=== PATIENT | female | born 1950 | race Caucasian/White ===

== ENCOUNTER 2017-05-16 13:48 | Inpatient (IN) | payer MEDICARE ==
[~2017-05-16] VITALS: Ht 165.1 cm; Wt 96.6 kg
[2017-05-16] VITALS (7 sets, daily range): BP systolic 123–150; BP diastolic 56–83; PULSE 108–136; RESP 17–22; TEMP 97.9–98.2; O2SAT 93–96
[~2017-05-16 13:48] MED LIST: NAPR550 PO; SULF1TAB47 PO; Z.0.NO CURRENT MEDS
[2017-05-16] MEDS ORDERED: IOHEXOL 350 MG/ML 10 ML VIAL (for RAD DIAG) IVCONTRAST ONE (13:49)
--- NOTE | 2017-05-16 14:09 | PD ---
HPI Chief Complaint: abdominal pain Time Seen by Provider: 14:05 Travel History International Travel<30 days: No Contact w/Intl Traveler<30days: No Traveled to known affect area: No History of Present Illness HPI 67-year-old female patient with history of previous cholecystectomy, presents to the ER today because of one week history of abdominal pains, dark stools, started vomiting today. She also complains of increased abdominal girth. She denies any fevers, but does states she has intermittent shortness of breath and dyspnea on exertion. She denies other issues. Modifying Factors: None Associated Signs & Symptoms: Abdominal pain, swelling, dark stools, vomiting Risk Factors: None PFSH Past Medical History Diminished Hearing: No Past Surgical History Abdominal Surgery: Yes (HERNIA REPAIR) Cholecystectomy: Yes Social History Alcohol Use: No Tobacco Use: No Substance Use: No Allergies-Medications (Allergen,Severity, Reaction): Coded Allergies: No Known Allergies (Verified Allergy, Mild, 05/16/17) Reported Meds & Prescriptions Reported Meds & Active Scripts Active Anaprox Ds (Naproxen Sodium) 550 Mg Tab 550 Mg PO BID Bactrim Ds (Trimethoprim/Sulfamethoxazole) Tab 1 Tab PO BID Reported No Current Meds (Miscellaneous Medication) Misc Review of Systems Except as stated in HPI: all other systems reviewed are Neg Physical Exam Narrative GENERAL: Well-developed elderly white female patient currently in moderate distress. Awake and oriented 3. Notable for dark brown vomitus unsure. SKIN: Focused skin assessment warm/dry. HEAD: Atraumatic. Normocephalic. EYES: Pupils equal and round. No scleral icterus. No injection or drainage. ENT: No nasal bleeding or discharge. Mucous membranes pink and moist. NECK: Trachea midline. No JVD. CARDIOVASCULAR: Regular rate and rhythm. No murmur appreciated. RESPIRATORY: No accessory muscle use. Clear to auscultation. Breath sounds equal bilaterally. GASTROINTESTINAL: Abdomen moderately distended, diffusely tender without guarding or rebound. Hepatic and splenic margins not palpable. MUSCULOSKELETAL: No obvious deformities. No clubbing. No cyanosis. No edema. NEUROLOGICAL: Awake and alert. No obvious cranial nerve deficits. Motor grossly within normal limits. Normal speech. PSYCHIATRIC: Appropriate mood and affect; insight and judgment normal. Data Data Last Documented VS Vital Signs Date Time Temp Pulse Resp B/P (MAP) Pulse Ox O2 Delivery O2 Flow Rate FiO2 12/2/17 14:29 97.9 132 22 136/83 (100) 95 Room Air Orders Orders Complete Blood Count With Diff (05/16/17 14:05) Comprehensive Metabolic Panel (05/16/17 14:05) Lipase (05/16/17 14:05) Prothrombin Time / Inr (Pt) (05/16/17 14:05) Act Partial Throm Time (Ptt) (05/16/17 14:05) Urinalysis - C+S If Indicated (05/16/17 14:05) Ct Abd/Pel W Iv Contrast(Rout) (05/16/17 14:05) Iv Access Insert/Monitor (05/16/17 14:05) Ecg Monitoring (05/16/17 14:05) Oximetry (05/16/17 14:05) Ondansetron Inj (Zofran Inj) (05/16/17 14:15) Sodium Chloride 0.9% Flush (Ns Flush) (05/16/17 14:15) Electrocardiogram (05/16/17 14:05) Chest, Single Ap (05/16/17 14:05) Sodium Chlorid 0.9% 500 Ml Inj (Ns 500 M (05/16/17 14:15) Iohexol 350 Inj (Omnipaque 350 Inj) (05/16/17 13:49) Labs Laboratory Tests Test 05/16/17 14:33 05/16/17 17:35 White Blood Count 12.0 TH/MM3 Red Blood Count 5.19 MIL/MM3 Hemoglobin 14.7 GM/DL Hematocrit 44.6 % Mean Corpuscular Volume 85.9 FL Mean Corpuscular Hemoglobin 28.4 PG Mean Corpuscular Hemoglobin Concent 33.0 % Red Cell Distribution Width 13.9 % Platelet Count 449 TH/MM3 Mean Platelet Volume 8.8 FL Neutrophils (%) (Auto) 79.3 % Lymphocytes (%) (Auto) 11.0 % Monocytes (%) (Auto) 9.0 % Eosinophils (%) (Auto) 0.3 % Basophils (%) (Auto) 0.4 % Neutrophils # (Auto) 9.5 TH/MM3 Lymphocytes # (Auto) 1.3 TH/MM3 Monocytes # (Auto) 1.1 TH/MM3 Eosinophils # (Auto) 0.0 TH/MM3 Basophils # (Auto) 0.1 TH/MM3 CBC Comment DIFF FINAL Differential Comment Prothrombin Time 11.0 SEC Prothromb Time International Ratio 1.1 RATIO Activated Partial Thromboplast Time 26.4 SEC Blood Urea Nitrogen 14 MG/DL Creatinine 0.70 MG/DL Random Glucose 213 MG/DL Total Protein 6.9 GM/DL Albumin 2.3 GM/DL Calcium Level 8.8 MG/DL Alkaline Phosphatase 108 U/L Aspartate Amino Transf (AST/SGOT) 24 U/L Alanine Aminotransferase (ALT/SGPT) 9 U/L Total Bilirubin 0.4 MG/DL Sodium Level 139 MEQ/L Potassium Level 3.8 MEQ/L Chloride Level 102 MEQ/L Carbon Dioxide Level 27.3 MEQ/L Anion Gap 10 MEQ/L Estimat Glomerular Filtration Rate 83 ML/MIN Lipase 65 U/L Urine Color YELLOW Urine Turbidity HAZY Urine pH 6.0 Urine Specific [place] 1.021 Urine Protein 30 mg/dL Urine Glucose (UA) NEG mg/dL Urine Ketones 10 mg/dL Urine Occult Blood NEG Urine Nitrite NEG Urine Bilirubin NEG Urine Urobilinogen 2.0 MG/DL Urine Leukocyte Esterase NEG Urine RBC LESS THAN 1 /hpf Urine WBC 3 /hpf Urine Squamous Epithelial Cells 1 /hpf Urine Hyaline Casts 1 /lpf Urine Mucus FEW /lpf Microscopic Urinalysis Comment CULT NOT INDICATED MDM Medical Decision Making Medical Screen Exam Complete: Yes Emergency Medical Condition: Yes Medical Record Reviewed: Yes Interpretation(s) Laboratory Tests Test 05/16/17 14:33 05/16/17 17:35 White Blood Count 12.0 TH/MM3 (4.0-11.0) Neutrophils (%) (Auto) 79.3 % (16.0-70.0) Monocytes (%) (Auto) 9.0 % (0.0-8.0) Neutrophils # (Auto) 9.5 TH/MM3 (1.8-7.7) Monocytes # (Auto) 1.1 TH/MM3 (0-0.9) Random Glucose 213 MG/DL (74-106) Albumin 2.3 GM/DL (3.4-5.0) Alanine Aminotransferase (ALT/SGPT) 9 U/L (10-53) Estimat Glomerular Filtration Rate 83 ML/MIN (>89) Lipase 65 U/L (73-393) Urine Turbidity HAZY (CLEAR) Urine Protein 30 mg/dL (NEG-TRACE) Urine Ketones 10 mg/dL (NEG) Urine Mucus FEW /lpf (OCC) Last 24 hours Impressions Chest X-Ray 05/16/17 1405 Signed Impressions: Service Date/Time: Tuesday, May 16, 2017 14:55 - CONCLUSION: 1. No gross free air. 2. Small loculated right-sided pleural effusion with patchy airspace disease in the right lower lung zone and associative volume loss. Milo Matute MD Abdomen/Pelvis CT 05/16/17 1405 Signed Impressions: Service Date/Time: Tuesday, May 16, 2017 17:09 - CONCLUSION: 1. Examination is abnormal. There are 2 dominant masses in the pelvis. A large multicystic left adnexal mass measuring up to 13.3 x 13.5 cm and an apparent heterogeneous myometrial uterine mass measuring 10.3 x 9.2 cm. There is extensive mesenteric carcinomatosis, ascites, mild retroperitoneal adenopathy, soft tissue studding of the liver surface and bilateral pulmonary nodules at the lung bases. Findings are consistent with extensive metastatic disease in a pattern most consistent with ovarian carcinoma. However, differential considerations include uterine malignancy given the large uterine mass with apparent mass effect on the distal right ureter. 2. Moderate right hydronephrosis and hydroureter secondary to mass effect from right pelvic mass 3. Small left and [id number] right pleural effusions. Milo Matute MD Differential Diagnosis Abdominal pain, increased abdominal girth, vomiting, diarrhea: Gastroenteritis versus obstruction versus acute intra-abdominal processes versus perforation Narrative Course CAT scan is very concerning for malignancy with metastases to multiple areas. At this point, my plan would be to admit the patient for further evaluation and treatment. Case was discussed with Dr. Carrillo for admission. Diagnosis Primary Impression: Abdominal pain Additional Impression: Ovarian mass Admitting Information Admitting Physician Requests: Admit Malik Patten MD May 16, 2017 14:09
[2017-05-16] MEDS ORDERED: SODIUM CHLORID 0.9% 500 ML INJ 500 ML IV ONE ×2 (14:15→21:00)
[2017-05-16] MEDS ORDERED: ONDANSETRON HCL 4 MG/2 ML VIAL IVP ONE (14:15)
[2017-05-16 15:03] LABS: AUTOMATED NEUTROPHIL # 9.5 TH/MM3 (1.8-7.7); BASOPHIL # 0.1 TH/MM3 (0-0.2); BASOPHIL % 0.4 % (0.0-2.0); EOSINOPHIL % 0.3 % (0.0-4.0); HEMATOCRIT 44.6 % (35.0-46.0); HEMO FLAGS DIFF FINAL; LYMPHOCYTE # 1.3 TH/MM3 (1.0-4.8); MEAN CELL VOLUME 85.9 FL (80.0-100.0); MEAN CORPUSCULAR HEMOGLOBIN 28.4 PG (27.0-34.0); NEUT % 79.3 % (16.0-70.0); PLATELET COUNT 449 TH/MM3 (150-450); RED BLOOD COUNT 5.19 MIL/MM3 (4.00-5.30); RED CELL DISTRIBUTION WIDTH 13.9 % (11.6-17.2)
[2017-05-16 15:12] LABS: APTT (PATIENT) 26.4 SEC (24.3-30.1); INTERNATIONAL NORMALIZED RATIO 1.1 RATIO
[2017-05-16 15:20] LABS: ALT (GPT) 9 U/L (10-53)
--- NOTE | 2017-05-16 15:21 | RADRPT ---
EXAM DATE/TIME: 05/16/2017 14:55 [facility] COMPARISON: No previous studies available for comparison. INDICATIONS : Lower abdominal pain and shortness of breath. Concern for free air. MEDICAL HISTORY : None. SURGICAL HISTORY : None. ENCOUNTER: Initial ACUITY: 1 week PAIN SCORE: 4/10 LOCATION: Bilateral chest FINDINGS: Small loculated right-sided pleural effusion with patchy airspace disease in the right lower lung zon e. Left lung is clear. Mediastinal shift to the right. Cardio mediastinal contours are otherwise unre markable. Bony thorax is intact. No gross free air. CONCLUSION: 1. No gross free air. 2. Small loculated right-sided pleural effusion with patchy airspace disease in the right lower lung zone and associative volume loss. Milo Matute MD on May 16, 2017 at 15:17 Board Certified Radiologist. This report was verified electronically.
[2017-05-16 15:22] LABS: ALKALINE PHOSPHATASE 108 U/L (45-117); TOTAL BILIRUBIN ADULT 0.4 MG/DL (0.2-1.0)
[2017-05-16 15:31] LABS: ANION GAP 10 MEQ/L (5-15); AST (GOT) 24 U/L (15-37); BICARBONATE 27.3 MEQ/L (21.0-32.0); BLOOD UREA NITROGEN 14 MG/DL (7-18); CHLORIDE 102 MEQ/L (98-107); GLOMERULAR FILTRATION RATE 83 ML/MIN (>89); POTASSIUM 3.8 MEQ/L (3.5-5.1); SODIUM (NA) 139 MEQ/L (136-145)
--- NOTE | 2017-05-16 17:36 | RADRPT ---
EXAM DATE/TIME: 05/16/2017 17:09 [facility] COMPARISON: No previous studies available for comparison. INDICATIONS : Abdomen pain. IV CONTRAST: 97 cc Omnipaque 350 (iohexol) IV ORAL CONTRAST: No oral contrast ingested. RADIATION DOSE: 27.01 CTDIvol (mGy) MEDICAL HISTORY : None SURGICAL HISTORY : Cholecystectomy. Hernia ENCOUNTER: Initial ACUITY: 1 day PAIN SCALE: 6/10 LOCATION: Bilateral abdomen in the future if there is a medical necessity for iodinated contrast. TECHNIQUE: Volumetric scanning of the abdomen and pelvis was performed. Using automated exposure control and ad justment of the mA and/or kV according to patient size, radiation dose was kept as low as reasonably achievable to obtain optimal diagnostic quality images. DICOM format image data is available electro nically for review and comparison. FINDINGS: LOWER LUNGS: Small left and [id number] right pleural effusions. Nodules in the lung bases bilaterally with the largest on the left measuring 12 mm and the largest on the right measuring 6 mm. LIVER: Liver demonstrates homogeneous density without evidence for intraductal dilatation. There is diffuse soft tissue studding of the liver surface. Gallbladder is surgically absent. SPLEEN: Normal size without lesion. PANCREAS: Within normal limits. KIDNEYS: Kidneys are symmetrical in size. There is moderate right-sided hydronephrosis and hydroureter extendi ng to the mid to distal ureter in the region of the pelvic mass. There is a 6 mm calcified calyceal c alculus in the anterior mid right kidney. There is a 3 mm calcified calyceal calculus in the left mid kidney. ADRENAL GLANDS: Within normal limits. VASCULAR: There is no aortic aneurysm. BOWEL/MESENTERY: Moderate to large amount of ascites with extensive peritoneal carcinomatosis. Largest peritoneal impl ant measures up to 4 cm. Bowel appears grossly unremarkable. ABDOMINAL WALL: Within normal limits. RETROPERITONEUM: Mild retroperitoneal adenopathy with nodes measuring up to 1.6 cm. BLADDER: No wall thickening or mass. REPRODUCTIVE: Abnormal. There is a large cystic left adnexal mass measuring 13.3 x 13.5 cm. Uterus is also abnormal . There is a heterogeneous apparent myometrial mass measuring up to 10.3 x 9.2 cm. This mass demonstr ates coarse calcifications medially. This does exert mass effect on the distal right ureter. INGUINAL: There is no lymphadenopathy or hernia. MUSCULOSKELETAL: L2 vertebral body hemangioma. No abnormal lytic or blastic bony lesions. CONCLUSION: 1. Examination is abnormal. There are 2 dominant masses in the pelvis. A large multicystic left adnex al mass measuring up to 13.3 x 13.5 cm and an apparent heterogeneous myometrial uterine mass measurin g 10.3 x 9.2 cm. There is extensive mesenteric carcinomatosis, ascites, mild retroperitoneal adenopat hy, soft tissue studding of the liver surface and bilateral pulmonary nodules at the lung bases. Find ings are consistent with extensive metastatic disease in a pattern most consistent with ovarian carci noma. However, differential considerations include uterine malignancy given the large uterine mass wi th apparent mass effect on the distal right ureter. 2. Moderate right hydronephrosis and hydroureter secondary to mass effect from right pelvic mass 3. Small left and [id number] right pleural effusions. Milo Matute MD on May 16, 2017 at 17:22 Board Certified Radiologist. This report was verified electronically.
[2017-05-16 17:51] LABS: BLOOD, URINE NEG (NEG); COMMENT (UR) CULT NOT INDICATED; CULTURE IF INDICATED CULT NOT INDICATED; GLUCOSE,URINE NEG (NEG); HYALINE CAST, URINE 1 /lpf (RARE); KETONE, URINE 10 mg/dL (NEG); MUCUS URINE FEW /lpf (OCC); NITRITE,URINE NEG (NEG); SQUAMOUS EPITHELIAL CELL URINE 1 /hpf (0-5); URINE COLOR YELLOW (YELLW/STRAW)
[2017-05-16] MEDS ORDERED: SODIUM CHLOR 0.45% 1000 ML INJ 1,000 ML IV SCH (18:34)
[2017-05-16] MEDS ORDERED: BISACODYL 10 MG SUPP RECTAL PRN (18:45)
[2017-05-16] MEDS ORDERED: MAGNESIUM HYDROXIDE SUSP 30 ML CUP PO PRN (18:45)
[2017-05-16] MEDS ORDERED: LACTULOSE SYRUP 20 GM/30 ML CUP PO PRN (18:45)
[2017-05-16] MEDS ORDERED: SENNOSIDES 8.6 MG TAB PO PRN (18:45)
[2017-05-16] MEDS ORDERED: ACETAMINOPHEN 325 MG TAB PO PRN (18:45)
[2017-05-16] MEDS ORDERED: NALOXONE HCL 0.4 MG/ML AMP IV PUSH PRN (18:45)
[2017-05-16] MEDS ORDERED: ACETAMINOPHEN/HYDROcodone 325 MG/5 MG TAB PO PRN (18:45)
--- NOTE | 2017-05-16 18:59 | HHI.HP ---
[facility] No Primary Care Physician Admission Diagnosis ovarian mass/severe abdominal pain/right sided hydronephrosis Diagnoses: Chief Complaint: Abdominal pain, nausea, vomiting Travel History International Travel<30 Days: No Contact w/Intl Traveler <30 Da: No Traveled to Known Affected Are: No Sepsis Criteria SIRS Criteria (2 or more): Heart rate over 90, RR > 20 or PaCO2 < 32 Criteria Outcome: Meets SIRS criteria History of Present Illness Patient is a 67-year-old female with primary medical history of borderline diabetes, previous cholecystectomy, previous hernia repair who came in to the hospital secondary to abdominal pain, nausea, vomiting 1 week. Patient states she is very weak unable to get up. She was feeling nauseous for about a week and noticed that her abdomen is growing bigger. States that she did not notice vomiting blood but the EMS reported to her that they saw some blood tinged emesis. Patient states she's been having on and off diarrhea. Reports intermittent shortness of breath and dyspnea with exertion and even with conversation. Reports pain on her buttocks secondary to positioning otherwise, continues to have nausea. Denies chest pain, dizziness, headaches. Denies fevers, chills. Denies dysuria. Review of Systems Constitutional: COMPLAINS OF: Fatigue, Weight gain Ears, nose, mouth, throat: DENIES: Tinnitus, Hearing loss, Throat pain Cardiovascular: COMPLAINS OF: Dyspnea on Exertion, Orthopnea, DENIES: Chest pain, Lower Extremity Edema Gastrointestinal: COMPLAINS OF: Abdominal pain, Nausea, Vomiting Genitourinary: DENIES: Abnormal vaginal bleeding, Dysuria Neurologic: DENIES: Headache Except as stated in HPI: all other systems reviewed are Neg Past Family Social History Past Medical History Borderline diabetes Past Surgical History Cholecystectomy Hernia repair Reported Medications Reported Meds & Active Scripts Active Anaprox Ds (Naproxen Sodium) 550 Mg Tab 550 Mg PO BID Bactrim Ds (Trimethoprim/Sulfamethoxazole) Tab 1 Tab PO BID Reported No Current Meds (Miscellaneous Medication) Misc Allergies: Coded Allergies: No Known Allergies (Verified Allergy, Mild, 05/16/17) Active Ordered Medications Current Medications Medications (Trade) Dose Ordered Sig/Benita Route Start Time Stop Time Status Last Admin (NS Flush) 2 ml UNSCH PRN IV FLUSH 05/16/17 14:15 Family History Twin sister has cervical cancer, at the age of 41 Family history of diabetes Mother of heart attack Social History Denies alcohol use Denies tobacco use Denies illicit drug use Physical Exam Vital Signs Vital Signs Date Time Temp Pulse Resp B/P (MAP) Pulse Ox O2 Delivery O2 Flow Rate FiO2 05/16/17 14:29 97.9 132 22 136/83 (100) 95 Room Air 05/16/17 14:03 136 20 96 Physical Exam GENERAL: This is pale, well-developed patient, tachypnea noted with conversation. SKIN: Cool and dry. HEAD: Normocephalic. No temporal or scalp tenderness. EYES: Pupils equal round and reactive. Extraocular motions intact. No scleral icterus. No injection or drainage. Edentulous. ENT: Nose without bleeding. Throat without erythema. Uvula midline. Airway patent. NECK: Trachea midline. CARDIOVASCULAR: Tachycardia without murmurs, gallops, or rubs. RESPIRATORY: Diminished bases. No wheezes, rales, or rhonchi. Tachypnea noted GASTROINTESTINAL: Abdomen soft, non-tender. BS active. Temperature Sumit MUSCULOSKELETAL: Extremities without clubbing, cyanosis, or edema. NEUROLOGICAL: Awake and alert. Oriented to person, place, time. Motor and sensory grossly within normal limits. Bilateral upper and lower extremity weakness. Normal speech. Laboratory Laboratory Tests Test 05/16/17 14:33 05/16/17 17:35 White Blood Count 12.0 Red Blood Count 5.19 Hemoglobin 14.7 Hematocrit 44.6 Mean Corpuscular Volume 85.9 Mean Corpuscular Hemoglobin 28.4 Mean Corpuscular Hemoglobin Concent 33.0 Red Cell Distribution Width 13.9 Platelet Count 449 Mean Platelet Volume 8.8 Neutrophils (%) (Auto) 79.3 Lymphocytes (%) (Auto) 11.0 Monocytes (%) (Auto) 9.0 Eosinophils (%) (Auto) 0.3 Basophils (%) (Auto) 0.4 Neutrophils # (Auto) 9.5 Lymphocytes # (Auto) 1.3 Monocytes # (Auto) 1.1 Eosinophils # (Auto) 0.0 Basophils # (Auto) 0.1 CBC Comment DIFF FINAL Differential Comment Prothrombin Time 11.0 Prothromb Time International Ratio 1.1 Activated Partial Thromboplast Time 26.4 Blood Urea Nitrogen 14 Creatinine 0.70 Random Glucose 213 Total Protein 6.9 Albumin 2.3 Calcium Level 8.8 Alkaline Phosphatase 108 Aspartate Amino Transf (AST/SGOT) 24 Alanine Aminotransferase (ALT/SGPT) 9 Total Bilirubin 0.4 Sodium Level 139 Potassium Level 3.8 Chloride Level 102 Carbon Dioxide Level 27.3 Anion Gap 10 Estimat Glomerular Filtration Rate 83 Lipase 65 Urine Color YELLOW Urine Turbidity HAZY Urine pH 6.0 Urine Specific [place] 1.021 Urine Protein 30 Urine Glucose (UA) NEG Urine Ketones 10 Urine Occult Blood NEG Urine Nitrite NEG Urine Bilirubin NEG Urine Urobilinogen 2.0 Urine Leukocyte Esterase NEG Urine RBC LESS THAN 1 Urine WBC 3 Urine Squamous Epithelial Cells 1 Urine Hyaline Casts 1 Urine Mucus FEW Microscopic Urinalysis Comment CULT NOT INDICATED Result Diagram: 05/16/17 1433 05/16/17 1433 Imaging Last Impressions Chest X-Ray 05/16/17 1405 Signed Impressions: Service Date/Time: Tuesday, May 16, 2017 14:55 - CONCLUSION: 1. No gross free air. 2. Small loculated right-sided pleural effusion with patchy airspace disease in the right lower lung zone and associative volume loss. Milo Matute MD Abdomen/Pelvis CT 05/16/17 1405 Signed Impressions: Service Date/Time: Tuesday, May 16, 2017 17:09 - CONCLUSION: 1. Examination is abnormal. There are 2 dominant masses in the pelvis. A large multicystic left adnexal mass measuring up to 13.3 x 13.5 cm and an apparent heterogeneous myometrial uterine mass measuring 10.3 x 9.2 cm. There is extensive mesenteric carcinomatosis, ascites, mild retroperitoneal adenopathy, soft tissue studding of the liver surface and bilateral pulmonary nodules at the lung bases. Findings are consistent with extensive metastatic disease in a pattern most consistent with ovarian carcinoma. However, differential considerations include uterine malignancy given the large uterine mass with apparent mass effect on the distal right ureter. 2. Moderate right hydronephrosis and hydroureter secondary to mass effect from right pelvic mass 3. Small left and [id number]-zrxckhbu right pleural effusions. Milo Matute MD Caprini VTE Risk Assessment Caprini VTE Risk Assessment: Mod/High Risk (score >= 2) Caprini Risk Assessment Model Point Value = 1 Point Value = 2 Point Value = 3 Point Value = 5 Age 41-60 Minor surgery BMI > 25 kg/m2 Swollen legs Varicose veins or History of unexplained or recurrent spontaneous Oral contraceptives or hormone replacement Sepsis (< 1 month) Serious lung disease, including pneumonia (< 1 month) Abnormal pulmonary function Acute myocardial infarction Congestive heart failure (< 1 month) History of inflammatory bowel disease Medical patient at bed rest Age 61-74 Arthroscopic surgery Major open surgery (> 45 min) Laparoscopic surgery (> 45 min) Malignancy Confined to bed (> 72 hours) Immobilizing plaster cast Central venous access Age >= 75 History of VTE Family history of VTE Factor V Leiden Prothrombin [id number] Lupus anticoagulant Anticardiolipin antibodies Elevated serum homocysteine Heparin-induced thrombocytopenia Other congenital or acquired thrombophilia Stroke (< 1 month) Elective arthroplasty Hip, pelvis, or leg fracture Acute spinal cord injury (< 1 month) Prophylaxis Regimen Total Risk Factor Score Risk Level Prophylaxis Regimen 0-1 Low Early ambulation 2 Moderate Order ONE of the following: *Sequential Compression Device (SCD) *Heparin 5000 units SQ BID 3-4 Higher Order ONE of the following medications: *Heparin 5000 units SQ TID *Enoxaparin/Lovenox 40 mg SQ daily (WT < 150 kg, CrCl > 30 mL/min) *Enoxaparin/Lovenox 30 mg SQ daily (WT < 150 kg, CrCl > 10-29 mL/min) *Enoxaparin/Lovenox 30 mg SQ BID (WT < 150 kg, CrCl > 30 mL/min) AND/OR *Sequential Compression Device (SCD) 5 or more Highest Order ONE of the following medications: *Heparin 5000 units SQ TID (Preferred with Epidurals) *Enoxaparin/Lovenox 40 mg SQ daily (WT < 150 kg, CrCl > 30 mL/min) *Enoxaparin/Lovenox 30 mg SQ daily (WT < 150 kg, CrCl > 10-29 mL/min) *Enoxaparin/Lovenox 30 mg SQ BID (WT < 150 kg, CrCl > 30 mL/min) AND *Sequential Compression Device (SCD) Assessment and Plan Problem List: (1) Abdominal pain ICD Code: R10.9 - Unspecified abdominal pain Status: Acute (2) Ovarian mass ICD Code: N83.9 - Noninflammatory disorder of ovary, fallopian tube and broad ligament, unspecified Status: Acute Assessment and Plan Patient is a 67-year-old female with primary medical history of borderline diabetes, previous cholecystectomy, previous hernia repair who came in to the hospital secondary to abdominal pain, nausea, vomiting 1 week. Ovarian mass, suspected carcinoma Uterine mass, suspected carcinoma Abdominal pain, nausea, vomiting ?SIRS, ?Sepsis possibly secondary to pelvic inflammation/ abnormality - Tachycardia, WBC 12 - CT of the abdomen and pelvis 1. Examination is abnormal. There are 2 dominant masses in the pelvis. A large multicystic left adnexal mass measuring up to 13.3 x 13.5 cm and an apparent heterogeneous myometrial uterine mass measuring 10.3 x 9.2 cm. There is extensive mesenteric carcinomatosis, ascites, mild retroperitoneal adenopathy, soft tissue studding of the liver surface and bilateral pulmonary nodules at the lung bases. Findings are consistent with extensive metastatic disease in a pattern most consistent with ovarian carcinoma. However, differential considerations include uterine malignancy given the large uterine mass with apparent mass effect on the distal right ureter. 2. Moderate right hydronephrosis and hydroureter secondary to mass effect from right pelvic mass 3. Small left and nayzq-ss-[id number] right pleural effusions. - Patient states that her sister of cervical cancer at the age of 41 and she is happy to reach 67. - CMM TECHNICIAN oncology consulted for further evaluation and recommendation - Pain management IV morphine when necessary - Zofran For nausea - Check lactic acid, check blood cultures - IV fluids for hydration, monitor for overload as patient has pleural effusions. - Follow up labs in a.m. - Will hold off ABX for now as this is possibly secondary to all pelvic and uterine abnormality - Place on telemetry. Try BB if cont to by tachycardic with fluid resuscitation Borderline diabetes, hyperglycemia - Insulin sliding scale - Monitor Accu-Cheks - Check hemoglobin A1c DVT prop heparin GI prop pantoprazole Code Status DO NOT RESUSCITATE Discussed Condition With Patient, Nursing, Dr. Carrillo Physician Certification 2 Midnight Certification Type: Admission for Inpatient Services Order for Inpatient Services The services are ordered in accordance with Medicare regulations or non- Medicare payer requirements, as applicable. In the case of services not specified as inpatient-only, they are appropriately provided as inpatient services in accordance with the 2-midnight benchmark. Estimated LOS (days): 2 2 days is the estimated time the patient will need to remain in the hospital, assuming treatment plan goals are met and no additional complications. Post-Hospital Plan: Not yet determined James Hollins May 16, 2017 18:59 Carolina Carrillo MD May 17, 2017 07:17
[2017-05-16] MEDS ORDERED: DEXTROSE 50% IN WATER 50 ML VIAL(D50) IV PUSH PRN (19:00)
[2017-05-16] MEDS ORDERED: GLUCAGON 1 MG/ML VIAL OTHER PRN (19:00)
[2017-05-16] MEDS ORDERED: METOPROLOL TARTRATE 5 MG/5 ML VIAL IV PUSH ONE (20:30)
[2017-05-16] MEDS: SODIUM CHLOR 0.9% 1000 ML INJ 1,000 ML IV SCH ×2 (21:00→23:52)
[2017-05-16] MEDS: DOCUSATE SODIUM 50 MG/SENNA 8.6 MG TAB PO SCH (21:00)
[2017-05-16] MEDS: HEPARIN SODIUM - SQ 10,000 UNITS/ML VIAL SQ SCH (21:00)
[2017-05-16] MEDS: INSULIN ASPART SUPPLEMENTAL SCALE SQ SCH (23:45)
[2017-05-17 00:07] VITALS: PULSE 125
[2017-05-17 03:56] VITALS: BP 139/71; PULSE 119; RESP 18; TEMP 98; O2SAT 96
[2017-05-17] MEDS: RESP: ALBUTEROL 2.5 MG/IPRATROPIUM 0.5 MG NEB (PRN) NEB (07:41)
[2017-05-17] MEDS ORDERED: SODIUM CHLORID 0.9% 500 ML INJ 500 ML IV ONE (08:00)
[2017-05-17] MEDS: INSULIN ASPART SUPPLEMENTAL SCALE SQ SCH ×4 (08:13→21:00)
[2017-05-17] MEDS ORDERED: IOHEXOL 350 MG/ML 10 ML VIAL (for RAD DIAG) IVCONTRAST ONE (08:54)
[2017-05-17] MEDS: HEPARIN SODIUM - SQ 10,000 UNITS/ML VIAL SQ SCH (09:13)
[2017-05-17] MEDS: PANTOPRAZOLE SOD 20 MG DELAYED RELEASE TAB PO SCH (09:13)
[2017-05-17] MEDS: SODIUM CHLORIDE 0.9% FLUSH 10 ML FLUSH IV FLUSH PRN (09:14)
--- NOTE | 2017-05-17 09:15 | RADRPT ---
EXAM DATE/TIME: 05/17/2017 08:45 CORRECTION Corrected on: May 18, 2017; fixed report corrected IV to 70cc [place] COMPARISON: CHEST SINGLE AP, May 16, 2017, 14:55. INDICATIONS : Shortness of breath. IV CONTRAST: 70.00 cc Omnipaque 350 (iohexol) IV RADIATION DOSE: 8.78 CTDIvol (mGy) MEDICAL HISTORY : Hypertension. SURGICAL HISTORY : Cholecystectomy. ENCOUNTER: Initial ACUITY: 1 week PAIN SCALE: 0/10 LOCATION: chest TECHNIQUE: Volumetric scanning of the chest was performed using a pulmonary embolism protocol MIP images were re constructed. Using automated exposure control and adjustment of the mA and/or kV according to patien t size, radiation dose was kept as low as reasonably achievable to obtain optimal diagnostic quality images. DICOM format image data is available electronically for review and comparison. Follow-up recommendations for detected pulmonary nodules are based at a minimum on nodule size and pa tient risk factors according to Fleischner Society Guidelines. FINDINGS: PULMONARY ARTERIES: No filling defects are seen in the pulmonary arteries through the segmental level. LUNGS: Numerous bilateral pulmonary nodules consistent with metastatic disease. Prominent opacity within the right upper lobe with associated volume loss. Nodular density in the anterior left upper lobe measur es 12 mm and one within the posterior right upper lobe measures 13 mm. Centimeter nodule left lower l obe and 9 mm nodule in the right middle lobe. Bibasilar consolidation likely atelectasis. Numerous ot her smaller nodules are seen. PLEURAE: Moderate bilateral pleural effusions greater on the right. MEDIASTINUM: Multiple lymph nodes are seen predominantly within the fat anterior to the pericardium in the supradi aphragmatic region measuring 1.4 cm and the right and 2 cm in the left. Dilated esophagus. Minimal co ronary artery calcifications. MUSCULOSKELETAL: Within normal limits for patient age. MISCELLANEOUS: The visualized upper abdominal organs demonstrate ascites with prominent adenopathy adjacent to the d istal esophagus and supradiaphragmatic region. CONCLUSION: 1. No evidence for pulmonary embolism. 2. Moderate bilateral pleural effusions with bibasilar atelectasis greater on the right. 3. Multifocal metastatic pulmonary nodules and metastatic adenopathy. Noe Agustin MD on May 17, 2017 at 9:04 Board Certified Radiologist. Board Certified Radiologist. This report was verified electronically.
[2017-05-17 09:24] LABS: HEMOGLOBIN A1a 1.3 %; HEMOGLOBIN A1b 2.4 %; HEMOGLOBIN Ao 78.8 %; HEMOGLOBIN LA1C 2.3 %; HEMOGLOBIN P3 4.3 %
[2017-05-17] MEDS: DOCUSATE SODIUM 50 MG/SENNA 8.6 MG TAB PO SCH (09:24)
[2017-05-17] MEDS: ONDANSETRON HCL 4 MG/2 ML VIAL IVP PRN ×2 (09:25→21:10)
--- NOTE | 2017-05-17 11:19 | HHI.PR ---
Subjective Remarks Follow-up ovarian/uterine masses/questionable metastasis 05/17/17-patient seen and examined, complains of fullness, bloating, shortness of breath for which CTA ordered this morning. Patient requested hospice consultation Objective Vitals Vital Signs Date Time Temp Pulse Resp B/P (MAP) Pulse Ox O2 Delivery O2 Flow Rate FiO2 05/17/17 03:56 98.0 119 18 139/71 (93) 96 05/17/17 00:07 125 05/16/17 23:10 98.2 126 17 150/66 (94) 93 05/16/17 21:35 121 05/16/17 21:23 98.1 119 17 126/82 (97) 93 05/16/17 20:44 05/16/17 20:36 108 20 123/56 (78) 96 Room Air 05/16/17 20:19 98.2 133 20 137/70 (92) 94 Room Air 05/16/17 14:29 97.9 132 22 136/83 (100) 95 Room Air 05/16/17 14:03 136 20 96 I/O 05/16/17 05/16/17 05/16/17 05/17/17 05/17/17 05/17/17 07:00 15:00 23:00 07:00 15:00 23:00 Intake Total 500 ml Balance 500 ml Intake IV Total 500 ml Result Diagram: 05/16/17 1433 05/16/17 [address] Angiography 05/17/17 0000 Signed Impressions: Service Date/Time: Wednesday, May 17, 2017 08:45 - CONCLUSION: 1. No evidence for pulmonary embolism. 2. Moderate bilateral pleural effusions with bibasilar atelectasis greater on the right. 3. Multifocal metastatic pulmonary nodules and metastatic adenopathy. Noe Agustin MD Chest X-Ray 05/16/17 1907 Signed Impressions: Service Date/Time: Tuesday, May 16, 2017 14:55 - CONCLUSION: 1. No gross free air. 2. Small loculated right-sided pleural effusion with patchy airspace disease in the right lower lung zone and associative volume loss. Milo Matute MD Abdomen/Pelvis CT 05/16/17 1405 Signed Impressions: Service Date/Time: Tuesday, May 16, 2017 17:09 - CONCLUSION: 1. Examination is abnormal. There are 2 dominant masses in the pelvis. A large multicystic left adnexal mass measuring up to 13.3 x 13.5 cm and an apparent heterogeneous myometrial uterine mass measuring 10.3 x 9.2 cm. There is extensive mesenteric carcinomatosis, ascites, mild retroperitoneal adenopathy, soft tissue studding of the liver surface and bilateral pulmonary nodules at the lung bases. Findings are consistent with extensive metastatic disease in a pattern most consistent with ovarian carcinoma. However, differential considerations include uterine malignancy given the large uterine mass with apparent mass effect on the distal right ureter. 2. Moderate right hydronephrosis and hydroureter secondary to mass effect from right pelvic mass 3. Small left and ftuzc-xp-afqydyby right pleural effusions. Milo Matute MD Objective Remarks GENERAL: NAD SKIN: Warm and dry. HEAD: Normocephalic. EYES: No scleral icterus. No injection or drainage. NECK: Supple, trachea midline. No JVD or lymphadenopathy. CARDIOVASCULAR: Regular rate and rhythm without murmurs, gallops, or rubs. RESPIRATORY: Breath sounds decrease bilaterally. No accessory muscle use. GASTROINTESTINAL: Abdomen soft, mildly tender, nondistended. MUSCULOSKELETAL: No cyanosis, or edema. BACK: Nontender without obvious deformity. No CVA tenderness. A/P Problem List: (1) Abdominal pain ICD Code: R10.9 - Unspecified abdominal pain Status: Acute (2) Ovarian mass ICD Code: N83.9 - Noninflammatory disorder of ovary, fallopian tube and broad ligament, unspecified Status: Acute (3) Metastasis ICD Code: C79.9 - Secondary malignant neoplasm of unspecified site Assessment and Plan 67-year-old female with Ovarian mass, suspected carcinoma Uterine mass, suspected carcinoma ?SIRS, ?Sepsis possibly secondary to pelvic inflammation/ abnormality - Tachycardia, WBC 12 - CT of the abdomen and pelvis with Findings consistent with extensive metastatic disease in a pattern most consistent with ovarian carcinoma. - CTA 05/17/17 noted and reviewed by me with finding of multifocal metastasis pulmonary nodules and pulmonary adenopathy - Patient states that her sister of cervical cancer at the age of 41 and she is happy to reach 67. 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
[2017-05-17 11:45] VITALS: BP 147/74; PULSE 123; RESP 20; TEMP 98.9; O2SAT 95
[2017-05-17] MEDS: SODIUM CHLOR 0.9% 1000 ML INJ 1,000 ML IV SCH ×2 (12:38→21:35)
[2017-05-17] MEDS: ACETAMINOPHEN/HYDROcodone 325 MG/7.5 MG TAB PO PRN ×2 (14:55→21:10)
[2017-05-17 17:05] LABS: AUTOMATED NEUTROPHIL # 7.6 TH/MM3 (1.8-7.7); BASOPHIL % 0.2 % (0.0-2.0); EOSINOPHIL % 0.1 % (0.0-4.0); HEMATOCRIT 41.1 % (35.0-46.0); HEMO FLAGS DIFF FINAL; LYMPH % 12.5 % (9.0-44.0); LYMPHOCYTE # 1.2 TH/MM3 (1.0-4.8); MEAN CELL VOLUME 85.3 FL (80.0-100.0); MEAN CORPUSCULAR HEMOGLOBIN 26.9 PG (27.0-34.0); MEAN CORPUSCULAR HGB CONC 31.5 % (32.0-36.0); MONO % 11.1 % (0.0-8.0); NEUT % 76.1 % (16.0-70.0); PLATELET COUNT 418 TH/MM3 (150-450); RED BLOOD COUNT 4.82 MIL/MM3 (4.00-5.30)
[2017-05-17 17:24] LABS: ANION GAP 12 MEQ/L (5-15); AST (GOT) 16 U/L (15-37); BICARBONATE 23.5 MEQ/L (21.0-32.0); BLOOD UREA NITROGEN 23 MG/DL (7-18); CHLORIDE 105 MEQ/L (98-107); GLOMERULAR FILTRATION RATE 65 ML/MIN (>89); LDH SERUM 154 U/L (84-246); POTASSIUM 3.6 MEQ/L (3.5-5.1); SODIUM (NA) 140 MEQ/L (136-145)
[2017-05-17 17:27] LABS: BETA HCG TUMOR MARKER 10 MIU/ML (0-5)
[2017-05-17 17:35] LABS: ALKALINE PHOSPHATASE 90 U/L (45-117); ALT (GPT) LESS THAN 6 U/L (10-53); TOTAL BILIRUBIN ADULT 0.3 MG/DL (0.2-1.0)
[2017-05-17 18:46] VITALS: BP 152/78; PULSE 120; RESP 18; TEMP 97.8; O2SAT 96
[2017-05-17 20:00] VITALS: BP 152/83; PULSE 119; PULSE 127; RESP 18; TEMP 98.5; O2SAT 92
--- NOTE | 2017-05-17 22:44 | EKG ---
Date Performed: 05/16/2017 Time Performed: 14:48:43 PTAGE: 67 years EKG: SINUS TACHYCARDIA RIGHT BUNDLE BRANCH BLOCK LEFT ANTERIOR FASCICULAR BLOCK ABNORMAL ECG NO PREVIOUS TRACING DOCTOR: Fabio Almonte Interpretating Date/Time 05/17/2017 22:43:37
[2017-05-18] VITALS (10 sets, daily range): BP systolic 110–162; BP diastolic 69–95; PULSE 114–123; RESP 16–20; TEMP 97.1–99.1; O2SAT 90–95
[2017-05-18] MEDS: ONDANSETRON HCL 4 MG/2 ML VIAL IVP PRN ×3 (03:56→20:29)
[2017-05-18] MEDS: ACETAMINOPHEN/HYDROcodone 325 MG/7.5 MG TAB PO PRN ×2 (04:00→20:14)
[2017-05-18] MEDS: SODIUM CHLOR 0.9% 1000 ML INJ 1,000 ML IV SCH ×3 (08:15→18:00)
[2017-05-18] MEDS: INSULIN ASPART SUPPLEMENTAL SCALE SQ SCH ×4 (08:15→20:19)
[2017-05-18] MEDS: PANTOPRAZOLE SOD 20 MG DELAYED RELEASE TAB PO SCH (08:15)
--- NOTE | 2017-05-18 08:40 | PD.CONS ---
History of Present Illness Service purchaser/onc Consult Requested By Dr. Rivers Reason for Consult pelvic masses and carcinomatosis Primary Care Physician No Primary Care Physician Diagnoses: (1) Ovarian mass (2) Abdominal pain (3) Metastasis History of Present Illness This is a 67 year old female who had a 2 week history of abdominal distention, bloating and pain. She reports that over the past few days she has not been able to eat much, she denies any nausea or vomiting but has a lot of reflux She presented to ER for further evaluation. Imaging obtained reports left adnexal mass with enlarged uterus with mass, ascites and peritoneal carcinomatosis. It also stated that she has adenopathy and bilateral lung nodules suspicious for metastatic disease. Patient reports it have been many years since last purchaser exam and about 5 years since last MMG. Mrs. Edwards is seen in consultation for the above findings. I explained that reason for purchaser/onc consult and reviewed the the CT scan results. I explained that we are unsure if this cancer is arising from ovary and spread to abdomen/ uterus and possibly lung or if the problem started in the uterus and spread. I explained that we can have IR do biopsy to determine the primary site so her cancer can be appropriately treated. Mrs. Edwards declined biopsy and is interested in talking with Hospice. She understands that if she goes with Hospice that she will not be receiving treatment for her cancer. We will support her in whatever choice she makes we are here to give her recommendations and treatment options but she is the boss and we will respect her choice. Hospice consult was placed. Review of Systems Constitutional: COMPLAINS OF: Fatigue, Change in appetite Gastrointestinal: COMPLAINS OF: Abdominal pain Except as stated in HPI: all other systems reviewed are Neg Past Family Social History Allergies: Coded Allergies: No Known Allergies (Verified Allergy, Mild, 05/16/17) Past Medical History pre-diabetic Past Surgical History hernia repair with mesh cholecystectomy Reported Medications per EMR Active Ordered Medications Current Medications Ondansetron HCl (Zofran Inj) 4 mg ONCE ONCE IVP Last administered on 15:01; Start 05/16/17 at 14:15; Stop 05/16/17 at 14:16; Status DC Sodium Chloride (NS Flush) 2 ml UNSCH PRN IV FLUSH FLUSH AFTER USING IV ACCESS Last administered on 05/17/17 09:14; Start 05/16/17 at 14:15 Sodium Chloride 500 ml @ 500 mls/hr BOLUS ONCE IV Last administered on 15:01; Start 05/16/17 at 14:15; Stop 05/16/17 at 15:14; Status DC Iohexol (Omnipaque 350 Inj) 97 ml STK-MED ONCE IVCONTRAST Last administered on 05/16/17 13:49; Start 05/16/17 at 13:49; Stop 05/16/17 at 17:17; Status DC Sodium Chloride 1,000 ml @ 75 mls/hr [id number] IV Last administered on 19:21; Start 05/16/17 at 18:34; Stop 05/16/17 at 21:02; Status DC Acetaminophen (Tylenol) 650 mg Q4H PRN PO TEMP > 100.4; Start 05/16/17 at 18:45 Ondansetron HCl (Zofran Inj) 4 mg Q6H PRN IVP NAUSEA OR VOMITING Last administered on 05/18/17 03:56; Start 05/16/17 at 18:45 Heparin Sodium (Porcine) (Heparin Inj) 5,000 units Q12H SQ Last administered on 05/17/17 09:13; Start 05/16/17 at 21:00; Stop 05/17/17 at 11:21; Status DC Acetaminophen/ Hydrocodone Bitart ([place] 5-325 Mg) 1 tab Q4H PRN PO PAIN SCALE 3 TO 5; Start 05/16/17 at 18:45 Acetaminophen/ Hydrocodone Bitart ([place] 7.5-325 Mg) 1 tab Q4H PRN PO PAIN SCALE 6 TO 10 Last administered on 05/18/17 04:00; Start 05/16/17 at 18:45 Morphine Sulfate (Morphine Inj) 2 mg Q3H PRN IV PUSH Pain 3-5; if unable to take PO; Start 05/16/17 at 18:45 Naloxone HCl (Narcan Inj) 0.4 mg UNSCH PRN IV PUSH SEE LABEL COMMENTS; Start 05/16/17 at 18:45 Senna/Docusate Sodium (Page-Colace) 1 tab BID PO ; Start 05/16/17 at 21:00; Stop 05/17/17 at 11:21; Status DC Magnesium Hydroxide (Milk Of Magnesia Liq) 30 ml Q12H PRN PO Mild constipation ; Start 05/16/17 at 18:45 Sennosides (Senokot) 17.2 mg Q12H PRN PO Moderate constipation; Start 05/16/17 at 18:45; Stop 05/17/17 at 11:21; Status DC Bisacodyl (Dulcolax Supp) 10 mg DAILY PRN RECTAL SEVERE CONSITIPATION; Start 05/16/17 at 18:45; Stop 05/17/17 at 11:21; Status DC Lactulose (Lactulose Liq) 30 ml DAILY PRN PO SEVERE CONSITIPATION; Start at 18:45; Stop 05/17/17 at 11:21; Status DC Pantoprazole Sodium (Protonix) 20 mg DAILY PO Last administered on 05/17/17 09 :13; Start 05/17/17 at 09:00 Dextrose (D50w (Vial) Inj) 50 ml UNSCH PRN IV PUSH HYPOGLYCEMIA-SEE COMMENTS; Start 05/16/17 at 19:00 Glucagon (Glucagon Inj) 1 mg UNSCH PRN OTHER HYPOGLYCEMIA-SEE COMMENTS; Start 05/16/17 at 19:00 Insulin Aspart (NovoLOG SUPPLEMENTAL SCALE) 1 ACHS SLIDING SCALE SQ Last administered on 05/17/17 21:00; Start 05/16/17 at 21:00 Sodium Chloride 500 ml @ 500 mls/hr BOLUS ONCE IV ; Start 05/16/17 at 21:00; Stop 05/16/17 at 21:59; Status DC Metoprolol Tartrate (Lopressor Inj) 5 mg ONCE ONCE IV PUSH Last administered on 05/16/17 20:35; Start 05/16/17 at 20:30; Stop 05/16/17 at 20:31; Status DC Sodium Chloride 1,000 ml @ 100 mls/hr Q10H IV Last administered on 05/17/17 21:35; Start 05/16/17 at 21:00 Albuterol/ Ipratropium (Duoneb Neb) 1 ampule Q4HR NEB PRN NEB SHORTNESS OF BREATH Last administered on 05/17/17 07:41; Start 05/17/17 at 07:30 Sodium Chloride 500 ml @ 500 mls/hr BOLUS ONCE IV Last administered on 09:12; Start 05/17/17 at 08:00; Stop 05/17/17 at 08:59; Status DC Iohexol (Omnipaque 350 Inj) 70 ml STK-MED ONCE IVCONTRAST Last administered on 05/17/17t 08:54; Start 05/17/17 at 08:54; Stop 05/17/17 at 08:55; Status DC Family History of lung cancer twin sister of cervix cancer in early 40s Social History lives alone has 2 children: son lives in [place] daughter lives here Physical Exam Vital Signs Vital Signs Date Time Temp Pulse Resp B/P (MAP) Pulse Ox O2 Delivery O2 Flow Rate FiO2 05/18/17 04:00 97.1 122 20 156/95 (115) 92 05/18/17 00:00 99.1 114 20 110/69 (83) 95 05/17/17 20:00 119 05/17/17 20:00 98.5 127 18 152/83 (106) 92 05/17/17 18:46 97.8 120 18 152/78 (102) 96 05/17/17 11:45 98.9 123 20 147/74 (98) 95 Physical Exam GENERAL: This is a well-nourished, well-developed patient, in no apparent distress. SKIN: No rashes, ecchymoses or lesions. Cool and dry. HEAD: Atraumatic. Normocephalic. No temporal or scalp tenderness. EYES: Pupils equal round and reactive. Extraocular motions intact. No scleral icterus. No injection or drainage. NECK: Trachea midline. CARDIOVASCULAR: Regular rate and rhythm without murmurs, gallops, or rubs. RESPIRATORY: Clear to auscultation. Breath sounds equal bilaterally. No wheezes , rales, or rhonchi. GASTROINTESTINAL: Abdomen distended, generalized tenderness. + BS X 4 MUSCULOSKELETAL: Extremities without clubbing, cyanosis, or edema. No joint tenderness, effusion, or edema noted. No calf tenderness. Negative Homans sign bilaterally. NEUROLOGICAL: Awake and alert. Normal speech. Laboratory Laboratory Tests Test 05/17/17 16:14 White Blood Count 10.0 Red Blood Count 4.82 Hemoglobin 13.0 Hematocrit 41.1 Mean Corpuscular Volume 85.3 Mean Corpuscular Hemoglobin 26.9 Mean Corpuscular Hemoglobin Concent 31.5 Red Cell Distribution Width 14.0 Platelet Count 418 Mean Platelet Volume 8.7 Neutrophils (%) (Auto) 76.1 Lymphocytes (%) (Auto) 12.5 Monocytes (%) (Auto) 11.1 Eosinophils (%) (Auto) 0.1 Basophils (%) (Auto) 0.2 Neutrophils # (Auto) 7.6 Lymphocytes # (Auto) 1.2 Monocytes # (Auto) 1.1 Eosinophils # (Auto) 0.0 Basophils # (Auto) 0.0 CBC Comment DIFF FINAL Differential Comment Blood Urea Nitrogen 23 Creatinine 0.87 Random Glucose 186 Total Protein 6.0 Albumin 2.0 Calcium Level 8.4 Alkaline Phosphatase 90 Aspartate Amino Transf (AST/SGOT) 16 Alanine Aminotransferase (ALT/SGPT) LESS THAN 6 Total Bilirubin 0.3 Sodium Level 140 Potassium Level 3.6 Chloride Level 105 Carbon Dioxide Level 23.5 Anion Gap 12 Estimat Glomerular Filtration Rate 65 Lactate Dehydrogenase 154 Tumor Marker Alpha Fetoprotein 2.1 Carcinoembryonic Antigen 0.6 CA 15-3 Antigen 2936.4 CA 125 Antigen 456.5 Tumor Marker HCG 10 Thyroid Stimulating Hormone 3rd Gen 0.382 Date/Time Source Procedure Growth Status 05/16/17 19:30 Blood Peripheral Aerobic Blood Culture - Preliminary NO GROWTH IN 1 DAY Resulted 05/16/17 19:30 Blood Peripheral Anaerobic Blood Culture - Preliminary NO GROWTH IN 1 DAY Resulted Result Diagram: 05/17/17 1614 05/17/17 [address] Angiography 05/17/17 0000 Signed Impressions: Service Date/Time: Wednesday, May 17, 2017 08:45 - CONCLUSION: 1. No evidence for pulmonary embolism. 2. Moderate bilateral pleural effusions with bibasilar atelectasis greater on the right. 3. Multifocal metastatic pulmonary nodules and metastatic adenopathy. Noe Agustin MD Chest X-Ray 05/16/17 140 Signed Impressions: Service Date/Time: Tuesday, May 16, 2017 14:55 - CONCLUSION: 1. No gross free air. 2. Small loculated right-sided pleural effusion with patchy airspace disease in the right lower lung zone and associative volume loss. Milo Matute MD Abdomen/Pelvis CT 05/16/17 1405 Signed Impressions: Service Date/Time: Tuesday, May 16, 2017 17:09 - CONCLUSION: 1. Examination is abnormal. There are 2 dominant masses in the pelvis. A large multicystic left adnexal mass measuring up to 13.3 x 13.5 cm and an apparent heterogeneous myometrial uterine mass measuring 10.3 x 9.2 cm. There is extensive mesenteric carcinomatosis, ascites, mild retroperitoneal adenopathy, soft tissue studding of the liver surface and bilateral pulmonary nodules at the lung bases. Findings are consistent with extensive metastatic disease in a pattern most consistent with ovarian carcinoma. However, differential considerations include uterine malignancy given the large uterine mass with apparent mass effect on the distal right ureter. 2. Moderate right hydronephrosis and hydroureter secondary to mass effect from right pelvic mass 3. Small left and jtosi-jc-ieokzifg right pleural effusions. Milo Matute MD Assessment and Plan Problem List: (1) Ovarian mass ICD Codes: N83.9 - Noninflammatory disorder of ovary, fallopian tube and broad ligament, unspecified Status: Acute Plan: both CA 125 456 CA 15-9 2936 ca 19-9 and CEA normal pt declined IR bx for diagnosis and determine primary wants to talk with Hospice and they have been consulted (2) Abdominal pain ICD Codes: R10.9 - Unspecified abdominal pain Status: Resolved Plan: no pain at this time (3) Metastasis ICD Codes: C79.9 - Secondary malignant neoplasm of unspecified site Plan: suspicious for metastasis Problem Qualifiers (1) Abdominal pain: Qualified Codes: R10.84 - Generalized abdominal pain (2) Metastasis: Teddy Etienne May 18, 2017 08:40
--- NOTE | 2017-05-18 13:51 | HHI.PR ---
Objective Vitals Vital Signs Date Time Temp Pulse Resp B/P (MAP) Pulse Ox O2 Delivery O2 Flow Rate FiO2 05/18/17 11:39 93 21 05/18/17 11:30 98.4 118 18 147/79 (101) 95 05/18/17 08:03 97.8 120 18 158/85 (109) 90 05/18/17 07:00 117 05/18/17 04:00 97.1 122 20 156/95 (115) 92 05/18/17 00:00 99.1 114 20 110/69 (83) 95 05/17/17 20:00 119 05/17/17 20:00 98.5 127 18 152/83 (106) 92 05/17/17 18:46 97.8 120 18 152/78 (102) 96 I/O 05/17/17 05/17/17 05/17/17 05/18/17 05/18/17 05/18/17 07:00 15:00 23:00 07:00 15:00 23:00 Intake Total 240 ml 1749 ml Balance 240 ml 1749 ml Intake Oral 240 ml 240 ml IV Total 1509 ml # Voids 1 3 # Bowel Movements 0 Result Diagram: 05/17/17 1614 05/17/17 1614 Objective Remarks GENERAL: Chronically ill appearing CF patient. SKIN: Warm and dry. HEAD: Normocephalic. EYES: No scleral icterus. No injection or drainage. NECK: Supple, trachea midline. No JVD or lymphadenopathy. CARDIOVASCULAR: Regular rate and rhythm without murmurs, gallops, or rubs. RESPIRATORY: Breath sounds diminished at bases, no wheezing GASTROINTESTINAL: Abdomen soft, distended, non-tender EXTREMITIES: 1+ pedal edema NEUROLOGICAL: Awake, alert, and oriented x 3. Non-focal. 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 - patient offered biopsy but declines, requesting hospice instead -await hospice recommendations SIRS suspect secondary to pelvic inflammation/ abnormality - Tachycardia, WBC 12 -BC neg x 2 days, WBC normal -no evidence of pna or uti - Pain management IV morphine when necessary - Zofran For nausea Respiratory distress -CTA negative for PE however positive for multifocal metastasis of pulmonary nodule and pulmonary adenopathy - DuoNeb when necessary and maintain oxygen saturation above 92% -moderate b/l pleural effusions -if dyspnea worsens can offer thoracentesis Borderline diabetes, hyperglycemia - Insulin sliding scale - Monitor Accu-Cheks - hemoglobin A1c pending DVT proph - SCDs Problem Qualifiers (1) Abdominal pain: Qualified Codes: R10.84 - Generalized abdominal pain (2) Metastasis: Leslie Rivers MD May 18, 2017 13:51
--- NOTE | 2017-05-18 15:52 | PD.ONC.PN ---
Subjective Subjective Remarks pt laying in bed with daughter at bedside no complaints Her RN contacted me and asked me to come up to talk with patient and daughter. Explained to daughter detail of pts CT scan and tumor markers Hospice had been into talk with patient and daughter and they are interested in getting bx for diagnosis and treatment options. I suggested since she has been hesitant on what course she should follow hospice vs. bx and possible treatment that they should sit and talk with Palliative care to help clarity goal and get everything documented. They were both in favor, order placed. Objective Data Date Time Temp Pulse Resp B/P (MAP) Pulse Ox O2 Delivery O2 Flow Rate FiO2 05/18/17 11:39 93 21 05/18/17 11:30 98.4 118 18 147/79 (101) 95 05/18/17 08:03 97.8 120 18 158/85 (109) 90 05/18/17 07:00 117 05/18/17 04:00 97.1 122 20 156/95 (115) 92 05/18/17 00:00 99.1 114 20 110/69 (83) 95 05/17/17 20:00 119 05/17/17 20:00 98.5 127 18 152/83 (106) 92 05/17/17 18:46 97.8 120 18 152/78 (102) 96 05/18/17 05/18/17 05/18/17 07:00 15:00 23:00 Intake Total 1749 ml Balance 1749 ml Result Diagram: 05/17/17 1614 05/17/17 1614 Laboratory Results Laboratory Tests Test 05/17/17 16:14 White Blood Count 10.0 TH/MM3 Red Blood Count 4.82 MIL/MM3 Hemoglobin 13.0 GM/DL Hematocrit 41.1 % Mean Corpuscular Volume 85.3 FL Mean Corpuscular Hemoglobin 26.9 PG Mean Corpuscular Hemoglobin Concent 31.5 % Red Cell Distribution Width 14.0 % Platelet Count 418 TH/MM3 Mean Platelet Volume 8.7 FL Neutrophils (%) (Auto) 76.1 % Lymphocytes (%) (Auto) 12.5 % Monocytes (%) (Auto) 11.1 % Eosinophils (%) (Auto) 0.1 % Basophils (%) (Auto) 0.2 % Neutrophils # (Auto) 7.6 TH/MM3 Lymphocytes # (Auto) 1.2 TH/MM3 Monocytes # (Auto) 1.1 TH/MM3 Eosinophils # (Auto) 0.0 TH/MM3 Basophils # (Auto) 0.0 TH/MM3 CBC Comment DIFF FINAL Differential Comment Blood Urea Nitrogen 23 MG/DL Creatinine 0.87 MG/DL Random Glucose 186 MG/DL Total Protein 6.0 GM/DL Albumin 2.0 GM/DL Calcium Level 8.4 MG/DL Alkaline Phosphatase 90 U/L Aspartate Amino Transf (AST/SGOT) 16 U/L Alanine Aminotransferase (ALT/SGPT) LESS THAN 6 U/L Total Bilirubin 0.3 MG/DL Sodium Level 140 MEQ/L Potassium Level 3.6 MEQ/L Chloride Level 105 MEQ/L Carbon Dioxide Level 23.5 MEQ/L Anion Gap 12 MEQ/L Estimat Glomerular Filtration Rate 65 ML/MIN Lactate Dehydrogenase 154 U/L Tumor Marker Alpha Fetoprotein 2.1 NG/ML Carcinoembryonic Antigen 0.6 NG/ML CA 15-3 Antigen 2936.4 U/ML CA 125 Antigen 456.5 U/ML Tumor Marker HCG 10 MIU/ML Thyroid Stimulating Hormone 3rd Gen 0.382 uIU/ML Culture Results Microbiology Date/Time Source Procedure Growth Status 05/16/17 19:30 Blood Peripheral Aerobic Blood Culture - Preliminary NO GROWTH IN 2 DAYS Resulted 05/16/17 19:30 Blood Peripheral Anaerobic Blood Culture - Preliminary NO GROWTH IN 2 DAYS Resulted 05/16/17 19:22 Blood Peripheral Aerobic Blood Culture - Preliminary NO GROWTH IN 2 DAYS Resulted 05/16/17 19:22 Blood Peripheral Anaerobic Blood Culture - Preliminary NO GROWTH IN 2 DAYS Resulted Administered Medications Medications (Trade) Dose Ordered Sig/Benita Route PRN Reason Start Time Stop Time Status Last Admin Dose Admin Sodium Chloride (NS Flush) 2 ml UNSCH PRN IV FLUSH FLUSH AFTER USING IV ACCESS 05/16/17 14:15 05/17/17 09:14 Ondansetron HCl (Zofran Inj) 4 mg Q6H PRN IVP NAUSEA OR VOMITING 05/16/17 18:45 05/18/17 15:23 Acetaminophen/ Hydrocodone Bitart ([place] 7.5-325 Mg) 1 tab Q4H PRN PO PAIN SCALE 6 TO 10 05/16/17 18:45 05/18/17 04:00 Pantoprazole Sodium (Protonix) 20 mg DAILY PO 05/17/17 09:00 05/18/17 08:15 Insulin Aspart (NovoLOG SUPPLEMENTAL SCALE) 1 ACHS SLIDING SCALE SQ 05/16/17 21:00 05/18/17 11:49 Sodium Chloride 1,000 ml @ 100 mls/hr Q10H IV 05/16/17 21:00 05/18/17 08:15 Albuterol/ Ipratropium (Duoneb Neb) 1 ampule Q4HR NEB PRN NEB SHORTNESS OF BREATH 05/17/17 07:30 05/17/17 07:41 Objective Remarks GENERAL: Well-nourished, well-developed patient. SKIN: Warm and dry. HEAD: Normocephalic. EYES: No scleral icterus. No injection or drainage. MUSCULOSKELETAL: Adequate muscle tone. NEUROLOGICAL: No obvious focal deficit. Awake, alert, and oriented x3. PSYCHIATRIC: Appropriate mood and affect; insight and judgment normal. Assessment/Plan Problem List: (1) Ovarian mass ICD Codes: N83.9 - Noninflammatory disorder of ovary, fallopian tube and broad ligament, unspecified Status: Acute Plan: IR for CT guided bx of pelvic mass or implant whichever they feel can be obtained safest for diagnosis order placed Palliative Care order placed to help clarify goals. (2) Metastasis ICD Codes: C79.9 - Secondary malignant neoplasm of unspecified site (3) Abdominal pain ICD Codes: R10.9 - Unspecified abdominal pain Status: Resolved Plan: meds per EMR pain controlled at this time Attending Statement Discussed with patient and daughter discussed with RN and Dr. Contreras Problem Qualifiers (1) Metastasis: (2) Abdominal pain: Qualified Codes: R10.84 - Generalized abdominal pain Teddy Etienne May 18, 2017 15:52
--- NOTE | 2017-05-18 17:09 | HHI.HCPN ---
Palliative care consulted to assist with goals of care for Ms. Edwards. Met with her and daughter in her room. Ms. Edwards currently lying in bed, nurse in room. She denies any pain or discomfort at this time. Verbalizes she has pain that comes and goes but is comfortable right now. Reports some shortness of breath from being changed and repositioned prior to my entrance. Patient and daughter deny any concerns at this time. Appreciative of palliative care visit and meeting scheduled for tomorrow. Scheduled family meeting with patient, daughter, and palliative care tomorrow, Saturday 05/19 at 330pm. Palliative care will continue to follow throughout hospitalization. Susan Houston, [employer] May 18, 2017 17:09
[2017-05-18 17:42] LABS: AUTOMATED NEUTROPHIL # 7.4 TH/MM3 (1.8-7.7); BASOPHIL % 0.1 % (0.0-2.0); EOSINOPHIL # 0.1 TH/MM3 (0-0.4); EOSINOPHIL % 0.7 % (0.0-4.0); HEMATOCRIT 41.8 % (35.0-46.0); HEMO FLAGS DIFF FINAL; LYMPH % 12.4 % (9.0-44.0); LYMPHOCYTE # 1.2 TH/MM3 (1.0-4.8); MEAN CELL VOLUME 85.7 FL (80.0-100.0); MEAN CORPUSCULAR HGB CONC 31.6 % (32.0-36.0); MONO % 10.8 % (0.0-8.0); PLATELET COUNT 424 TH/MM3 (150-450); RED BLOOD COUNT 4.87 MIL/MM3 (4.00-5.30); RED CELL DISTRIBUTION WIDTH 13.9 % (11.6-17.2); WHITE BLOOD COUNT 9.7 TH/MM3 (4.0-11.0)
[2017-05-18 17:51] LABS: APTT (PATIENT) 27.8 SEC (24.3-30.1); INTERNATIONAL NORMALIZED RATIO 1.1 RATIO; PROTHROMBIN TIME - PATIENT 10.9 SEC (9.8-11.6)
--- NOTE | 2017-05-18 18:51 | MB ---
cc: LESLIE GARCIA MD,ILENE CHOE,ALNANA Arredondo MD DATE OF CONSULTATION 05/18/2017 REQUESTING PHYSICIAN Leslie Garcia REASON FOR CONSULTATION Pelvic mass, carcinomatous implants, ascites, pulmonary nodules. This patient is seen, findings are reviewed. She is evaluated by me, examined by me and counseled by me in conjunction with our nurse practitioner (Teddy Etienne). I agree with her findings, assessment and plan of care. HISTORY OF THE PRESENT ILLNESS This is a 67-year-old female who has been feeling somewhat poorly for a period of time of uncertain duration but especially in the last couple of weeks and what prompted her to present to the emergency room was she had nausea that had been going on for perhaps a couple of days and a single episode of projectile vomiting after which she called the ambulance. She was seen in the emergency room, evaluated, now admitted to the hospital for further evaluation and management. IMAGING STUDIES CT scan of abdomen and pelvis shows ascites, shows an enlarged uterus at 10 cm with possible mass effect in the uterine cavity. There is a septated fluid collection interpreted as a mass in the left adnexa 13.5 cm greatest dimension. There is extensive mesentery carcinomatosis, thickening of the omentum, ascites, retroperitoneal adenopathy, what appeared be tumor implants on the surface of the liver. There is also bilateral pulmonary nodules at the lung bases, all suggestive of malignancy. Also moderate right hydronephrosis and small bilateral pleural effusions. CT angiogram of the lungs was negative for pulmonary emboli. Chest x-ray shows blunting of the angles consistent with pleural effusions. LABORATORY DATA Labs show that the current H&H 13 and 41. Electrolytes essentially normal. Renal function preserved with BUN and creatinine 23 and 0.87. Tumor markers include a normal AFP at 2.1. Normal CEA at 0.6. Close to normal hCG at 10. CA-125 elevated at 456. CA 15-3 markedly elevated at 2936. PAST MEDICAL HISTORY Notable for: Glucose control issues, prediabetic or possibly undiagnosed diabetic. PAST SURGICAL HISTORY Includes: 1. Cholecystectomy. 2. She has had a ventral hernia repair with a mesh placement. ALLERGIES NO KNOWN DRUG ALLERGIES. REVIEW OF SYSTEMS As per history of present illness. She has not had any vaginal bleeding. No bright red blood or melanotic stool change despite a single episode of projectile vomiting. She had ongoing flatus, ongoing bowel movements without difficulty. She is voiding without difficulty. No one else in the family had been sick. No febrile illness. No joint pains. Just overall lethargy, decreased energy and just generally feeling poorly associated with some abdominal distention, decreased appetite. MEDICATIONS Medications are as outlined in the chart. FAMILY HISTORY Her of lung cancer. She had a twin sister of cervix cancer in her early 40s. She has two daughters one of whom is present for our discussion. Lives locally. Son lives in [place]. She herself lives alone, no longer works but apparently has been somewhat depressed having lost a job that she had done for approximately 25 years. PHYSICAL EXAMINATION VITAL SIGNS: She is afebrile, pulse ranging from 117-122, blood pressure of 147-158 over 76-95. O2 saturations greater than or equal to 90%. GENERAL: She is alert and oriented times three. Still manages to have a good sense of humor despite feeling poorly. She seems uncomfortable chronically but in no acute distress. LUNGS: The lung bases are dull. The apices are clear. CARDIOVASCULAR: Rapid regular rate and rhythm. ABDOMEN: Distended and minimally tender but nonacute. There is a fullness in the right lower quadrant. I do not know if this is mass effect or previous hernia mesh. There is also fullness in the epigastrium as well as the left lower quadrant. PELVIC: [employer] exam deferred until more optimal setting. EXTREMITIES: Show 1+ chronic edema. No palpable cords. DISCUSSION Time is spent in discussion with her and her daughter reviewing the findings in her case to date. I explained the reason for [employer] oncology consultation. The constellation of findings are suspicious for cancer problem. It is possible that the problem started in the female organs given the abnormal appearance of the uterus and the largest left adnexa with pattern of spread and the elevated tumor markers. It is also possible, however, that the tumor did not start in the gynecologic organs but started elsewhere. Breast tumor markers are also markedly elevated and it is been years since her last breast exam, mammogram or pelvic exam and we know the breast, colorectal and lung cancer are amongst the most common cancers. Additional information can potentially be obtained with CT directed biopsy. She had initially declined a biopsy and was interested in meeting with Hospice but after her daughter spoke with her and after our nurse practitioner (Teddy Etienne) and myself spoke to her more, she is now in agreement with at least trying to clarify the diagnosis with CT directed biopsy. She would also like to have palliative care meet with her and get some more information as she tries to decide whether not she would consider chemotherapy as treatment or whether not she would want to maximize palliative care. Discussion ensued, questions were answered. She understands that ultimately she is the decision maker and we will support whatever decision she makes, but she does seem in favor at least getting additional information to try to clarify the problem and so that she can better understand what would be involved in treatment recommendations thereafter. ASSESSMENT 1. Uterine mass, adnexal mass, carcinomatous implants, ascites pulmonary nodules. 2. Elevated tumor markers can often be elevated for ovarian cancer and/or breast cancer. 3. Extensive discussion. PLAN 1. Move forward with interventional radiology consult to obtain CT directed solid tissue biopsy to try to clarify the diagnosis obtained from the omentum or peritoneal implants. 2. Palliative care consult for evaluation and management. 3. Grateful for medical care, continue present management, supportive care, IV fluid hydration, correction of electrolytes, symptomatic control. Thank you for the consultation. We will follow along in her care. MD JD Castle/OSEI /4:07 PM /6:20 PM
[2017-05-18] MEDS: RESP: ALBUTEROL 2.5 MG/IPRATROPIUM 0.5 MG NEB (PRN) NEB (20:30)
[2017-05-19] VITALS (8 sets, daily range): BP systolic 124–158; BP diastolic 65–86; PULSE 99–117; RESP 16–18; TEMP 97.6–98.6; O2SAT 92–98
[2017-05-19] MEDS: SODIUM CHLOR 0.9% 1000 ML INJ 1,000 ML IV SCH (03:07)
[2017-05-19] MEDS: ONDANSETRON HCL 4 MG/2 ML VIAL IVP PRN (03:07)
[2017-05-19] MEDS: INSULIN ASPART SUPPLEMENTAL SCALE SQ SCH ×4 (07:57→19:43)
[2017-05-19] MEDS: PANTOPRAZOLE SOD 20 MG DELAYED RELEASE TAB PO SCH (08:02)
[2017-05-19] MEDS ORDERED: FUROSEMIDE 40 MG/4 ML VIAL IV PUSH ONE (10:15)
--- NOTE | 2017-05-19 10:53 | PD.CONS ---
Consult Service Palliative Care . Consult Requested By Teddy Etienne . Primary Care Physician No Primary Care Physician . Reason for Consultation a. To assist with evaluation and management of symptoms including:nausea/ vomiting, pain, n/v, dyspnea b. To assist medical decision maker(s) with: better understanding of current medical conditions; weighing benefits/burdens of medical treatment options; making medical treatment decisions. . HPI History of Present Illness Ms. Edwards is a 67-year-old female with a history of borderline diabetes who presented to [facility] ED via EMS on 05/16/2017 for evaluation of pain, n/ v and anorexia 1 week. EMS reported the patient was found covered in a moderate amount of coffee ground emesis, her abdomen was distended and tender to palpation in all 4 quadrants. The patient stated she had had watery diarrhea for a few days and dyspnea with minimal exertion. Additional diagnostic data includes: * Pulse 136, respirations 20, oxygen saturation 96% on RA, temperature 97.9 * WBC: 12.0, Hgb 14.7, hematocrit 44.6, platelets 449, neutrophils 79.3%. * Sodium: 139, potassium 3.8, chloride 102, carbon dioxide 27.3, glucose 213, calcium 8.8 * Hemoglobin A1c: 10.1 * Lactic acid: 1.7 * BUN: 14, creatinine 0.70, GFR 83 * Total bilirubin: 0.4, AST 24, ALT 9, alkaline phosphatase 108 * Total protein: 6.9, albumin 2.3 * Urinalysis-negative * Blood cultures: Preliminary results showing no growth in 2 days * Chest x-ray showed and tingling of angles consistent with pleural effusions. * CT abdomen/pelvis revealed 2 dominant masses in the pelvis. A large multicystic left adnexal mass measuring up to 13.3 x 13.5 cm and an apparent heterogeneous myometrial uterine mass measuring 10.3 x 9.2 cm. There is extensive mesenteric carcinomatosis, ascites, mild retroperitoneal adenopathy, soft tissue studding of the liver surface and bilateral pulmonary nodules at the lung base. Findings are consistent with extensive metastatic disease in a pattern most consistent with ovarian carcinoma. However, differential considerations including uterine malignancy given the large uterine mass with apparent mass effect on the distal right ureter. Moderate right hydronephrosis and hydroureter secondary to mass effect from right pelvic mass. Small left and small to moderate right pleural effusions. CT abdomen/pelvis was concerning for malignancy with metastasis to multiple areas. Patient was admitted for further evaluation and management. MAINTENANCE ENGINEER OIL FIELD/ oncology was consulted for evaluation and recommendations. Patient complaining of worsening shortness of breath on 05/17/2017. A subsequent CT angiogram showed no evidence of pulmonary embolism, multifocal metastatic luminary nodules and metastatic adenopathy were noted. Tumor markers include a normal AFP at 2.1; normal CEA at 0.6; borderline normal hCG at 10. CA-125 elevated at 456; CA 15-3 elevated at 2936 MAINTENANCE ENGINEER OIL FIELD/oncology met with the patient to discuss the concern for cancer as evidenced by abnormal imaging and the elevated tumor markers. Initially the patient had declined further diagnostic procedures and requested to speak with hospice. However after speaking with her daughter and the MAINTENANCE ENGINEER OIL FIELD/oncology team, the patient is agreeable to proceed with IR consult to obtain CT guided biopsy to clarify the diagnosis and determine possible treatment options. Palliative Care was consulted to assist with symptom management and to discuss with the family the benefits and burdens of her current illnesses and the options regarding future care. . Function/Cognitive Trajectory Patient live alone. She does use a cane to ambulate but was otherwise independent for all ADLs. Patient does not have a PCP or receive regular medical care. She began developing symptoms such as pain, abdominal distention, nausea/vomiting, decreased appetite and fatigue approximately 3 weeks prior to presenting to the ED for evaluation. . Review of Systems Constitutional: COMPLAINS OF: Fatigue, Weight gain, Generalized weakness, DENIES: Fever Cardiovascular: COMPLAINS OF: Dyspnea on Exertion, Orthopnea Gastrointestinal: COMPLAINS OF: Abdominal pain, Nausea, Vomiting (single episode of progectile vomiting reported), DENIES: Black stools, Bloody stools Genitourinary: DENIES: Abnormal vaginal bleeding, Dysuria Musculoskeletal: DENIES: Joint pain Neurologic: DENIES: Headache Past Family Social History Coded Allergies: No Known Allergies (Verified Allergy, Mild, 05/16/17) Past Medical History Borderline diabetes . Past Surgical History Cholecystectomy Hernia repair . Reported Medications Reported No Current Meds (Miscellaneous Medication) Misc . Current Medications Medications (Trade) Dose Ordered Sig/Benita Route Start Time Stop Time Status Last Admin (NS Flush) 2 ml UNSCH PRN IV FLUSH 05/16/17 14:15 05/17/17 09:14 (Tylenol) 650 mg Q4H PRN PO 05/16/17 18:45 (Zofran Inj) 4 mg Q6H PRN IVP 05/16/17 18:45 05/19/17 03:07 (Cameron 5-325 Mg) 1 tab Q4H PRN PO 05/16/17 18:45 (Cameron 7.5-325 Mg) 1 tab Q4H PRN PO 05/16/17 18:45 05/18/17 20:14 (Morphine Inj) 2 mg Q3H PRN IV PUSH 05/16/17 18:45 (Narcan Inj) 0.4 mg UNSCH PRN IV PUSH 05/16/17 18:45 (Milk Of Magnesia Liq) 30 ml Q12H PRN PO 05/16/17 18:45 (Protonix) 20 mg DAILY PO 05/17/17 09:00 05/19/17 08:02 (D50w (Vial) Inj) 50 ml UNSCH PRN IV PUSH 05/16/17 19:00 (Glucagon Inj) 1 mg UNSCH PRN OTHER 05/16/17 19:00 (NovoLOG SUPPLEMENTAL SCALE) 1 ACHS SLIDING SCALE SQ 05/16/17 21:00 05/18/17 20:19 Sodium Chloride 1,000 ml @ 100 mls/hr Q10H IV 05/16/17 21:00 05/19/17 03:07 (Duoneb Neb) 1 ampule Q4HR NEB PRN NEB 05/17/17 07:30 05/18/17 20:30 Family History Familial history of diabetes. Patient's twin sister at the age of 41 from cervical cancer. Her mother from a heart attack. . Substance Use Tobacco: None known Alcohol: None known Prescription med abuse: None known Illicits: None known . Psychosocial History Patient is originally from [place], [place]. She was , but her approximately 30+ years ago from complications related to either the liver or the lungs. The patient had 2 sisters. Her twin sister in her 40s from cervical cancer; she is reportedly estranged from another sister whose last known address was in [place]. Patient has a daughter (Mary) and a son (Damon) . Her son lives in [place], and her daughter lives locally. The patient's daughter states her mother was always working when she was growing up, trying to support the family. 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 The patient currently lives alone with her cat , Dante. . . Spiritual/Cultural Factors Oriental Orthodox olesya . Documented care wishes: No known documented care wishes were completed. . Today's verbally stated goals: Patient was unable to communicate medical treatment goals at the time of exam status post CT-guided biopsy this afternoon. . Family/friends goals: Patient's daughter, Mary, without bedside. She states her mother wants to know the biopsy results and possible treatment options before establishing her adequate treatment goals. . Ethical and Legal Issues No known ethical or legal issues impacting care at this time. Per [place] statutes, in the absence of written advanced directives healthcare proxy decision-making falls to the patient's 2 adult children. . Physical Exam Vital Signs Date Time Temp Pulse Resp B/P (MAP) Pulse Ox O2 Delivery O2 Flow Rate FiO2 05/19/17 07:54 98.6 117 18 158/86 (110) 94 05/19/17 07:02 113 05/19/17 03:10 98.3 111 16 153/84 (107) 93 05/18/17 23:00 98.4 117 16 162/87 (112) 93 05/18/17 20:20 119 05/18/17 20:20 98.6 123 18 160/91 (114) 93 05/18/17 17:33 92 21 05/18/17 15:51 98.4 121 18 150/76 (100) 92 05/18/17 11:39 93 21 05/18/17 11:30 98.4 118 18 147/79 (101) 95 . Exam CONSTITUTIONAL/GENERAL: This is a chronically ill appearing female patient in no acute distress TUBES/LINES/DRAINS: PIV 2, nasal cannula SKIN: No jaundice, rashes, or lesions. Ecchymoses on upper extremities. No wounds seen anteriorly. Skin temperature appropriate. Not diaphoretic. HEAD: Atraumatic. Normocephalic. EYES: Pupils equal and round and reactive. No scleral icterus. No injection or drainage. Fundi not examined. ENT: Hearing grossly normal. Nose without bleeding or purulent drainage. NECK: Trachea midline. CARDIOVASCULAR: Regular rate and rhythm without murmurs, gallops, or rubs. No JVD. Peripheral pulses symmetric. RESPIRATORY/CHEST: Symmetric, unlabored respirations. Breath sounds diminished bilaterally. No wheezes, rales, or rhonchi. GASTROINTESTINAL: Abdomen round, distended, slightly tender to palpation. . Bowel sounds present. GENITOURINARY: Without palpable bladder distension. MUSCULOSKELETAL: Extremities without clubbing, cyanosis, or edema. No mottling or clubbing. LYMPHATICS: No palpable cervical or supraclavicular adenopathy. NEUROLOGICAL: Lethargic s/p CT guided bx. PSYCHIATRIC: No obvious anxiety/depression. no apparent hallucinations or other psychotic thought process. . Diagnostic Tests Laboratory Laboratory Tests Test 05/16/17 14:33 05/16/17 17:35 05/16/17 19:30 05/17/17 16:14 White Blood Count 12.0 TH/MM3 (4.0-11.0) 10.0 TH/MM3 (4.0-11.0) Red Blood Count 5.19 MIL/MM3 (4.00-5.30) 4.82 MIL/MM3 (4.00-5.30) Hemoglobin 14.7 GM/DL (11.6-15.3) 13.0 GM/DL (11.6-15.3) Hematocrit 44.6 % (35.0-46.0) 41.1 % (35.0-46.0) Mean Corpuscular Volume 85.9 FL (80.0-100.0) 85.3 FL (80.0-100.0) Mean Corpuscular Hemoglobin 28.4 PG (27.0-34.0) 26.9 PG (27.0-34.0) Mean Corpuscular Hemoglobin Concent 33.0 % (32.0-36.0) 31.5 % (32.0-36.0) Red Cell Distribution Width 13.9 % (11.6-17.2) 14.0 % (11.6-17.2) Platelet Count 449 TH/MM3 (150-450) 418 TH/MM3 (150-450) Mean Platelet Volume 8.8 FL (7.0-11.0) 8.7 FL (7.0-11.0) Neutrophils (%) (Auto) 79.3 % (16.0-70.0) 76.1 % (16.0-70.0) Lymphocytes (%) (Auto) 11.0 % (9.0-44.0) 12.5 % (9.0-44.0) Monocytes (%) (Auto) 9.0 % (0.0-8.0) 11.1 % (0.0-8.0) Eosinophils (%) (Auto) 0.3 % (0.0-4.0) 0.1 % (0.0-4.0) Basophils (%) (Auto) 0.4 % (0.0-2.0) 0.2 % (0.0-2.0) Neutrophils # (Auto) 9.5 TH/MM3 (1.8-7.7) 7.6 TH/MM3 (1.8-7.7) Lymphocytes # (Auto) 1.3 TH/MM3 (1.0-4.8) 1.2 TH/MM3 (1.0-4.8) Monocytes # (Auto) 1.1 TH/MM3 (0-0.9) 1.1 TH/MM3 (0-0.9) Eosinophils # (Auto) 0.0 TH/MM3 (0-0.4) 0.0 TH/MM3 (0-0.4) Basophils # (Auto) 0.1 TH/MM3 (0-0.2) 0.0 TH/MM3 (0-0.2) CBC Comment DIFF FINAL DIFF FINAL Differential Comment Prothrombin Time 11.0 SEC (9.8-11.6) Prothromb Time International Ratio 1.1 RATIO Activated Partial Thromboplast Time 26.4 SEC (24.3-30.1) Blood Urea Nitrogen 14 MG/DL (7-18) 23 MG/DL (7-18) Creatinine 0.70 MG/DL (0.50-1.00) 0.87 MG/DL (0.50-1.00) Random Glucose 213 MG/DL (74-106) 186 MG/DL (74-106) Total Protein 6.9 GM/DL (6.4-8.2) 6.0 GM/DL (6.4-8.2) Albumin 2.3 GM/DL (3.4-5.0) 2.0 GM/DL (3.4-5.0) Calcium Level 8.8 MG/DL (8.5-10.1) 8.4 MG/DL (8.5-10.1) Alkaline Phosphatase 108 U/L (45-117) 90 U/L (45-117) Aspartate Amino Transf (AST/SGOT) 24 U/L (15-37) 16 U/L (15-37) Alanine Aminotransferase (ALT/SGPT) 9 U/L (10-53) LESS THAN 6 U/L (10-53) Total Bilirubin 0.4 MG/DL (0.2-1.0) 0.3 MG/DL (0.2-1.0) Sodium Level 139 MEQ/L (136-145) 140 MEQ/L (136-145) Potassium Level 3.8 MEQ/L (3.5-5.1) 3.6 MEQ/L (3.5-5.1) Chloride Level 102 MEQ/L (98-107) 105 MEQ/L (98-107) Carbon Dioxide Level 27.3 MEQ/L (21.0-32.0) 23.5 MEQ/L (21.0-32.0) Anion Gap 10 MEQ/L (5-15) 12 MEQ/L (5-15) Estimat Glomerular Filtration Rate 83 ML/MIN (>89) 65 ML/MIN (>89) Hemoglobin A1c 10.1 % (4.3-6.0) Lipase 65 U/L (73-393) Urine Color YELLOW (YELLW/STRAW) Urine Turbidity HAZY (CLEAR) Urine pH 6.0 (5.0-8.5) Urine Specific Torreon 1.021 (1.002-1.035) Urine Protein 30 mg/dL (NEG-TRACE) Urine Glucose (UA) NEG mg/dL (NEG) Urine Ketones 10 mg/dL (NEG) Urine Occult Blood NEG (NEG) Urine Nitrite NEG (NEG) Urine Bilirubin NEG (NEG) Urine Urobilinogen 2.0 MG/DL (LESS THAN Urine Leukocyte Esterase NEG (NEG) Urine RBC LESS THAN 1 /hpf (0-3) Urine WBC 3 /hpf (0-5) Urine Squamous Epithelial Cells 1 /hpf (0-5) Urine Hyaline Casts 1 /lpf (RARE) Urine Mucus FEW /lpf (OCC) Microscopic Urinalysis Comment CULT NOT INDICATED Lactic Acid Level 1.7 mmol/L (0.4-2.0) Lactate Dehydrogenase 154 U/L (84-246) Tumor Marker Alpha Fetoprotein 2.1 NG/ML (0.5-8.0) Carcinoembryonic Antigen 0.6 NG/ML (0.2-5.0) CA 15-3 Antigen 2936.4 U/ML (0.0-32.4) CA 125 Antigen 456.5 U/ML (0.0-30.2) Tumor Marker HCG 10 MIU/ML (0-5) Thyroid Stimulating Hormone 3rd Gen 0.382 uIU/ML (0.358-3.740) Test 05/18/17 16:51 White Blood Count 9.7 TH/MM3 (4.0-11.0) Red Blood Count 4.87 MIL/MM3 (4.00-5.30) Hemoglobin 13.2 GM/DL (11.6-15.3) Hematocrit 41.8 % (35.0-46.0) Mean Corpuscular Volume 85.7 FL (80.0-100.0) Mean Corpuscular Hemoglobin 27.0 PG (27.0-34.0) Mean Corpuscular Hemoglobin Concent 31.6 % (32.0-36.0) Red Cell Distribution Width 13.9 % (11.6-17.2) Platelet Count 424 TH/MM3 (150-450) Mean Platelet Volume 8.5 FL (7.0-11.0) Neutrophils (%) (Auto) 76.0 % (16.0-70.0) Lymphocytes (%) (Auto) 12.4 % (9.0-44.0) Monocytes (%) (Auto) 10.8 % (0.0-8.0) Eosinophils (%) (Auto) 0.7 % (0.0-4.0) Basophils (%) (Auto) 0.1 % (0.0-2.0) Neutrophils # (Auto) 7.4 TH/MM3 (1.8-7.7) Lymphocytes # (Auto) 1.2 TH/MM3 (1.0-4.8) Monocytes # (Auto) 1.1 TH/MM3 (0-0.9) Eosinophils # (Auto) 0.1 TH/MM3 (0-0.4) Basophils # (Auto) 0.0 TH/MM3 (0-0.2) CBC Comment DIFF FINAL Differential Comment Prothrombin Time 10.9 SEC (9.8-11.6) Prothromb Time International Ratio 1.1 RATIO Activated Partial Thromboplast Time 27.8 SEC (24.3-30.1) . Result Diagram: 05/18/17 1651 05/17/17 1614 Microbiology Microbiology Date/Time Source Procedure Growth Status 05/16/17 19:30 Blood Peripheral Aerobic Blood Culture - Preliminary NO GROWTH IN 2 DAYS Resulted 05/16/17 19:30 Blood Peripheral Anaerobic Blood Culture - Preliminary NO GROWTH IN 2 DAYS Resulted 05/16/17 19:22 Blood Peripheral Aerobic Blood Culture - Preliminary NO GROWTH IN 2 DAYS Resulted 05/16/17 19:22 Blood Peripheral Anaerobic Blood Culture - Preliminary NO GROWTH IN 2 DAYS Resulted Imaging Last [address] Angiography 05/17/17 0000 Signed Impressions: Service Date/Time: Wednesday, May 17, 2017 08:45 - CONCLUSION: 1. No evidence for pulmonary embolism. 2. Moderate bilateral pleural effusions with bibasilar atelectasis greater on the right. 3. Multifocal metastatic pulmonary nodules and metastatic adenopathy. Noe Agustin MD Chest X-Ray 05/16/17 1405 Signed Impressions: Service Date/Time: Tuesday, May 16, 2017 14:55 - CONCLUSION: 1. No gross free air. 2. Small loculated right-sided pleural effusion with patchy airspace disease in the right lower lung zone and associative volume loss. Milo Matute MD Abdomen/Pelvis CT 05/16/17 1405 Signed Impressions: Service Date/Time: Tuesday, May 16, 2017 17:09 - CONCLUSION: 1. Examination is abnormal. There are 2 dominant masses in the pelvis. A large multicystic left adnexal mass measuring up to 13.3 x 13.5 cm and an apparent heterogeneous myometrial uterine mass measuring 10.3 x 9.2 cm. There is extensive mesenteric carcinomatosis, ascites, mild retroperitoneal adenopathy, soft tissue studding of the liver surface and bilateral pulmonary nodules at the lung bases. Findings are consistent with extensive metastatic disease in a pattern most consistent with ovarian carcinoma. However, differential considerations include uterine malignancy given the large uterine mass with apparent mass effect on the distal right ureter. 2. Moderate right hydronephrosis and hydroureter secondary to mass effect from right pelvic mass 3. Small left and [id number] right pleural effusions. Milo Matute MD . Procedures 05/19/2017: CT-guided biopsy next line. Patient/Family Conference Present at Family Conference: Met with patient and daughter at bedside. . Family Conference Location: Bedside Issues Discussed: * Palliative care role, purpose, approach * Additional medical, psychosocial, and spiritual history * Patients general health, functional status, and cognitive changes in the months leading up to the current hospitalization * Patient/family understanding of the current medical problems * Patient/family understanding of prognosis * Patients goals of care as best understood from advance directives and/or conversations and/or values * Current medical treatment options and benefits/burdens of those options * Likely scenarios comparing ongoing aggressive care with a transition to comfort measures only * Questions answered to the best of my ability * Palliative care contact information provided . Assessment and Plan Disease Oriented Problem List: (1) Pre-diabetes (2) S/P cholecystectomy (3) S/P hernia repair (4) Ovarian mass Symptom Scale: (1) Debility (2) Pain (3) Nausea and vomiting Pertinent Non-Medical Issues Psychosocial:Patient is originally from [place], [place]. She was , but her approximately 30+ years ago from complications related to either the liver or the lungs. The patient had 2 sisters. Her twin sister in her 40s from cervical cancer; she is reportedly estranged from another sister whose last known address was in [place]. Patient has a daughter (Mary) and a son (Damon). Her son lives in [place], and her daughter lives locally. The patient's daughter states her mother was always working when she was growing up, trying to support the family. 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 The patient currently lives alone with her cat, Dante. Spiritual: Oriental Orthodox olesya Legal: Per [place] statutes, in the absence of written advanced directives healthcare proxy decision-making falls to the patient's 2 adult children. Ethical issues impacting care: No known ethical issues impacting care at this time. . Important Contacts Mary Edwards, daughter: [phone] . Prognosis Patient is a 67-year-old female recently diagnosed with an ovarian and uterine mass suspicious for carcinoma, pulmonary metastasis and carcinomatosis status post CT-guided biopsy today 05/19/2017. Possible treatment options pending biopsy results; prognosis guarded at this time. . Code Status: No Code Plan * NO CODE * Decision-making: Per [place] statutes, and absence of written advanced directives healthcare proxy decision making falls to the patient's 2 adult children. * Goals pending biopsy results and session of possible treatment options. * Palliative care contact information provided to the patient and her daughter. * Spoke with patient's bedside nurse, Karen. * Symptom management - pain: Upon presentation to the ED, patient reporting constant burning abdominal pain rated 8/10 without medicating or exacerbating factors. Denies pain presently. PRN morphine every 3 hours IV and PRN Cameron (5- 325mg/tab or 7.5-325mg/tab) is available q4 hours. Patient has received 7.5- 325mg work 1 in the past 24 hours. * Symptom management - dyspnea: CT angiogram on 05/17/2017 was negative for pulmonary embolism. However, multifocal metastatic pulmonary nodules and metastatic adenopathy were noted. Moderate bilateral pleural effusions, may consider offering thoracentesis if dyspnea worsens. Patient received 40 mg IV Lasix 1 today; PRN nebulizer treatments are available. 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 Nausea has resolved at this time. PRN Zofran is available q6 hours; she has received two 4mg doses in the past 24 hours. * Palliative care will continue to monitor patient throughout this hospitalization to establish trust, assist with symptom management and clarification of medical treatment goals. . Thank you for the opportunity to participate in the care of Ms. Edwards. . Attestation To help prompt me to consider important information that might be impacting today's encounter and assessment, information from prior notes written by myself or my colleagues may have been "brought forward" into today's note. My signature on this note, however, is an attestation that I personally performed the exam, history, and/or decision-making noted today, and, unless otherwise indicated, the interactions with patient, family, and staff as well as the review of records all occurred today. I also attest that the listed assessment and stated plan reflect my best clinical judgment today based on the combination of historical information, prior notes, and today's exam/ interactions. When time spent is documented, it refers only to time spent today by the signer, or if indicated, combined time spent today by collaborating physician/nurse practitioner. . Juliana Heredia May 19, 2017 10:53
[2017-05-19] MEDS: METOPROLOL TARTRATE 50 MG TAB PO SCH ×2 (13:54→19:58)
[2017-05-19] MEDS ORDERED: LORazepam 2 MG/ML VIAL ONE (13:56)
--- NOTE | 2017-05-19 14:05 | HHI.PR ---
Subjective Remarks Patient going for CT pelvic biopsy this afternoon. Patient states I just want to get it over with. Patient denies pain or dyspnea. She states she is deferring decisions on her medical care to her daughter. Family meeting with palliative care as scheduled this afternoon. Objective Vitals Vital Signs Date Time Temp Pulse Resp B/P (MAP) Pulse Ox O2 Delivery O2 Flow Rate FiO2 05/19/17 11:50 97.6 116 18 149/67 (94) 94 05/19/17 07:54 98.6 117 18 158/86 (110) 94 05/19/17 07:02 113 05/19/17 03:10 98.3 111 16 153/84 (107) 93 05/18/17 23:00 98.4 117 16 162/87 (112) 93 05/18/17 20:20 119 05/18/17 20:20 98.6 123 18 160/91 (114) 93 05/18/17 17:33 92 21 05/18/17 15:51 98.4 121 18 150/76 (100) 92 I/O 05/18/17 05/18/17 05/18/17 05/19/17 05/19/17 05/19/17 07:00 15:00 23:00 07:00 15:00 23:00 Intake Total 1749 ml 1820 ml 1270 ml Balance 1749 ml 1820 ml 1270 ml Intake Oral 240 ml 820 ml IV Total 1509 ml 1000 ml 1270 ml # Voids 3 4 3 # Bowel Movements 0 0 Result Diagram: 05/18/17 1651 05/17/17 1614 Objective Remarks GENERAL: Chronically ill appearing CF patient. SKIN: Warm and dry. HEAD: Normocephalic. EYES: No scleral icterus. No injection or drainage. NECK: Supple, trachea midline. No JVD or lymphadenopathy. CARDIOVASCULAR: Regular rate and rhythm without murmurs, gallops, or rubs. RESPIRATORY: Breath sounds diminished at bases, no wheezing GASTROINTESTINAL: Abdomen soft, distended, non-tender EXTREMITIES: 1+ pedal edema NEUROLOGICAL: Awake, alert, and oriented x 3. Non-focal. 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 consultation - for pelvic biopsy today -Patient initially wanted hospice but daughter wanted her to pursue aggressive care -Palliative care following SIRS suspect secondary to pelvic inflammation/ abnormality in bilateral pleural effusions - Tachycardia, WBC 12 -BC neg x 3 days, WBC normal -no evidence of pna or uti - Pain management IV morphine when necessary - Zofran For nausea Respiratory distress -CTA negative for PE however positive for multifocal metastasis of pulmonary nodule and pulmonary adenopathy - DuoNeb when necessary and maintain oxygen saturation above 92% -moderate b/l pleural effusions -if dyspnea worsens can offer thoracentesis -40 mg IV Lasix today Borderline diabetes, hyperglycemia - Insulin sliding scale - Monitor Accu-Cheks - hemoglobin A1c pending DVT proph - SCDs Problem Qualifiers (1) Abdominal pain: Qualified Codes: R10.84 - Generalized abdominal pain (2) Metastasis: Leslie Rivers MD May 19, 2017 14:05
[2017-05-19] MEDS ORDERED: LIDOCAINE 1%/EPINEPHrine 1:100,000 SOLN 20 ML VIAL ONE (14:10)
--- NOTE | 2017-05-19 15:01 | PD.RAD ---
Post CT Procedure Prog Note Pre Procedure Diagnosis: (1) Ovarian mass (2) Metastasis Post Procedure Diagnosis: (1) Ovarian mass (2) Metastasis Procedure Date: May 19, 2017 Supervising Radiologist: Russell Faust Anesthesia: Local, Analgesia Plan of Activity Patient to Unit: Nursing Unit Patient Condition: Poor See PACS Report for procedural detail/treatment Biopsy Imaging Guidance: CT Side: Left Biopsy Procedure: Abdominal Mass Specimen: Core Biopsy Findings: Mesenteric masses Russell Faust MD May 19, 2017 15:01
--- NOTE | 2017-05-19 15:28 | RADRPT ---
EXAM DATE/TIME: 05/19/2017 14:29 [facility] COMPARISON: No previous studies available for comparison. INDICATIONS : Pelvic mass. SEDATION TIME: 30 minutes BIOPSY SITE: Pelvis MEDICATION(S): 1.) 2 mg lorazepam (Ativan) IV 2.) 50 mcg fentanyl (Sublimaze) IV DEVICE(S): 1.) 18 gauge Temno core biopsy needle MEDICAL HISTORY : Hypertension. SURGICAL HISTORY : Cholecystectomy ENCOUNTER: Initial ACUITY: 1 day PAIN SCORE: 0/10 LOCATION: pelvis A total of two core specimen(s) were obtained and sent to the laboratory for pathologic evaluation. PROCEDURE: 1. CT guided pelvic biopsy. 2. Conscious sedation with continuous EKG and oximetry monitoring. 3. EKG and oximetry remained stable throughout the procedure. Prior to the procedure informed consent was obtained. Any appropriate prior imaging studies were rev iewed. Using automated exposure control and adjustment of the mA and/or kV according to patient size, radiat ion dose was kept as low as reasonably achievable to obtain optimal diagnostic quality images. DICOM format image data is available electronically for review and comparison. The site was prepped in a sterile fashion. Full sterile technique was used, including cap, mask, ishaan rile gloves and gown and a large sterile sheet. Hand hygiene and 2% chlorhexidine and/or betadine/al cohol prep was utilized per protocol for cutaneous antisepsis. The skin and subcutaneous tissues wer e infiltrated with local anesthetic solution. With CT guidance the previously identified target was localized. Biopsy was performed using the presc ribed needle as above. Adequate hemostasis was obtained with compression at the puncture site. Follow-up CT scan reveals no hemorrhage. The patient tolerated the procedure well and there were no complications. The patient was returned to the Radiology Outpatient Unit in stable condition. CONCLUSION: Uncomplicated CT guided biopsy. Russell Faust MD on May 19, 2017 at 15:25 Board Certified Radiologist. This report was verified electronically.
[2017-05-20] VITALS (7 sets, daily range): BP systolic 113–145; BP diastolic 57–73; PULSE 91–110; RESP 15–22; TEMP 97.2–98.8; O2SAT 93–98
[2017-05-20 05:14] LABS: AUTOMATED NEUTROPHIL # 6.9 TH/MM3 (1.8-7.7); BASOPHIL % 0.3 % (0.0-2.0); EOSINOPHIL # 0.1 TH/MM3 (0-0.4); EOSINOPHIL % 0.7 % (0.0-4.0); HEMATOCRIT 40.5 % (35.0-46.0); HEMO FLAGS DIFF FINAL; LYMPH % 13.2 % (9.0-44.0); LYMPHOCYTE # 1.2 TH/MM3 (1.0-4.8); MEAN CELL VOLUME 86.2 FL (80.0-100.0); MEAN CORPUSCULAR HGB CONC 31.4 % (32.0-36.0); MONO % 10.9 % (0.0-8.0); NEUT % 74.9 % (16.0-70.0); PLATELET COUNT 392 TH/MM3 (150-450); RED BLOOD COUNT 4.69 MIL/MM3 (4.00-5.30); RED CELL DISTRIBUTION WIDTH 14.2 % (11.6-17.2); WHITE BLOOD COUNT 9.1 TH/MM3 (4.0-11.0)
[2017-05-20] MEDS: METOPROLOL TARTRATE 50 MG TAB PO SCH ×3 (05:34→21:56)
[2017-05-20 05:43] LABS: POTASSIUM 3.9 MEQ/L (3.5-5.1)
[2017-05-20] MEDS: INSULIN ASPART SUPPLEMENTAL SCALE SQ SCH ×4 (08:18→20:03)
[2017-05-20] MEDS: PANTOPRAZOLE SOD 20 MG DELAYED RELEASE TAB PO SCH (08:18)
--- NOTE | 2017-05-20 12:18 | HHI.PR ---
Subjective Remarks Patient states she is comfortable. Denies abdominal pain or shortness of breath. Tachycardia improved. Objective Vitals Vital Signs Date Time Temp Pulse Resp B/P (MAP) Pulse Ox O2 Delivery O2 Flow Rate FiO2 05/20/17 10:47 96 Nasal Cannula 3.00 05/20/17 08:05 97.2 95 22 127/63 (84) 94 05/20/17 08:00 95 05/20/17 04:00 97.8 110 15 145/72 (96) 93 05/19/17 23:29 98.4 99 16 144/78 (100) 93 05/19/17 20:24 92 21 05/19/17 20:00 98.5 103 18 129/65 (86) 94 05/19/17 15:22 98.6 102 16 124/78 (93) 98 I/O 05/19/17 05/19/17 05/19/17 05/20/17 05/20/17 05/20/17 07:00 15:00 23:00 07:00 15:00 23:00 Intake Total 1270 ml 600 ml 200 ml Balance 1270 ml 600 ml 200 ml Intake Oral 200 ml IV Total 1270 ml 600 ml # Voids 3 4 5 # Bowel Movements 2 Result Diagram: 05/20/17 0406 05/20/17 0406 Objective Remarks GENERAL: Chronically ill appearing CF patient. SKIN: Warm and dry. HEAD: Normocephalic. EYES: No scleral icterus. No injection or drainage. NECK: Supple, trachea midline. No JVD or lymphadenopathy. CARDIOVASCULAR: Regular rate and rhythm without murmurs, gallops, or rubs. RESPIRATORY: Breath sounds diminished at bases, no wheezing GASTROINTESTINAL: Abdomen protuberant, mildly distended, nontender. EXTREMITIES: 1+ pedal edema NEUROLOGICAL: Awake, alert, and oriented x 3. Non-focal. 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 Germaine Handley. Pathology will likely return tomorrow. No further inpatient workup as planned and patient may follow-up in his office as outpatient. -Patient does decide on chemotherapy could consider doing port prior to discharge, however this may also be done in the outpatient setting. SIRS suspect secondary to pelvic inflammation/ abnormality in bilateral pleural effusions - Tachycardia, WBC 12 -BC neg x 3 days, WBC normal -no evidence of pna or uti - Pain management IV morphine when necessary - Zofran For nausea Respiratory distress -CTA negative for PE however positive for multifocal metastasis of pulmonary nodule and pulmonary adenopathy - DuoNeb when necessary and maintain oxygen saturation above 92% -moderate b/l pleural effusions -if dyspnea worsens can offer thoracentesis -S/p 40 mg IV Lasix x 1 05/19 Borderline diabetes, hyperglycemia - Insulin sliding scale - Monitor Accu-Cheks - hemoglobin A1c 10 -start levemir 5 units SQ HS HTN -cont metoprolol BID DVT proph - SCDs Discharge Planning Patient is quite weak requiring max assist with physical therapy. May require residential facility. Problem Qualifiers (1) Abdominal pain: Qualified Codes: R10.84 - Generalized abdominal pain (2) Metastasis: Leslie Rivers MD May 20, 2017 12:18
--- NOTE | 2017-05-20 13:21 | HHI.HCPN ---
Reason for visit a. To assist with evaluation and management of symptoms including:nausea/ vomiting, pain, n/v, dyspnea b. To assist medical decision maker(s) with: better understanding of current medical conditions; weighing benefits/burdens of medical treatment options; making medical treatment decisions. . Subjective/Interval History Follow-up visit for symptom management and clarification of medical treatment goals. Patient was seen and assessed in room 233. She appears to be sleeping but is arousable to verbal stimuli. Somnolent today. Appears mildly to moderately dyspneic on examination, color ashen. Oxygen saturation in the mid 90s on 3L oxygen via nasal cannula. Breath sounds diminished bilaterally with some wheezing. DuoNebs are available q4 hours PRN for shortness of breath and to maintain oxygen saturation above 92%. Patient denies nausea/vomiting and/or pain at the time of examination. PRN Zofran is available for nausea and PRN Powell and IV morphine are available for pain, but neither have been required in the past 24 hours. Patient remains hemodynamically stable. Afebrile. Blood cultures remain negative to date. Awaiting biopsy results to determine possible treatment options. Palliative Care will continue to assist with symptom management and to discuss with the patient and family the benefits and burdens of her current illnesses and the options regarding future care. , Advance Directives Advance Directive Specifics Documented care wishes: No known documented care wishes were completed. . Objective Vital Signs Date Time Temp Pulse Resp B/P (MAP) Pulse Ox O2 Delivery O2 Flow Rate FiO2 05/20/17 10:47 96 Nasal Cannula 3.00 05/20/17 08:05 97.2 95 22 127/63 (84) 94 05/20/17 08:00 95 05/20/17 04:00 97.8 110 15 145/72 (96) 93 05/19/17 23:29 98.4 99 16 144/78 (100) 93 05/19/17 20:24 92 21 05/19/17 20:00 98.5 103 18 129/65 (86) 94 05/19/17 15:22 98.6 102 16 124/78 (93) 98 Intake & Output 05/20/17 05/20/17 07:00 19:00 Intake Total 200 ml Balance 200 ml Intake Oral 200 ml # Voids 6 # Bowel Movements 2 . Physical Exam CONSTITUTIONAL/GENERAL: This is a chronically ill appearing female patient in no acute distress TUBES/LINES/DRAINS: PIV 2, nasal cannula SKIN: No jaundice, rashes, or lesions. Skin temperature appropriate. Not diaphoretic. HEAD: Atraumatic. Normocephalic. EYES: Pupils equal and round and reactive. No scleral icterus. No injection or drainage. Fundi not examined. ENT: Hearing grossly normal. Nose without bleeding or purulent drainage. NECK: Trachea midline. CARDIOVASCULAR: Regular rate and rhythm without murmurs, gallops, or rubs. No JVD. Peripheral pulses symmetric. RESPIRATORY/CHEST: Respirations appear slightly labored. Breath sounds diminished bilaterally.+ Wheezing, left >right GASTROINTESTINAL: Abdomen round, distended, slightly tender to palpation. Bowel sounds present. GENITOURINARY: Without palpable bladder distension. MUSCULOSKELETAL: Extremities without clubbing, cyanosis, or edema. No mottling or clubbing. LYMPHATICS: No palpable cervical or supraclavicular adenopathy. NEUROLOGICAL: Somnolent. Arousable to verbal stimuli, able to respond appropriately to questions but asking if she can "please sleep." PSYCHIATRIC: No obvious anxiety/depression. no apparent hallucinations or other psychotic thought process. . Diagnostic Tests Laboratory Laboratory Tests Test 05/17/17 16:14 05/18/17 16:51 05/20/17 04:06 White Blood Count 10.0 TH/MM3 (4.0-11.0) 9.7 TH/MM3 (4.0-11.0) 9.1 TH/MM3 (4.0-11.0) Red Blood Count 4.82 MIL/MM3 (4.00-5.30) 4.87 MIL/MM3 (4.00-5.30) 4.69 MIL/MM3 (4.00-5.30) Hemoglobin 13.0 GM/DL (11.6-15.3) 13.2 GM/DL (11.6-15.3) 12.7 GM/DL (11.6-15.3) Hematocrit 41.1 % (35.0-46.0) 41.8 % (35.0-46.0) 40.5 % (35.0-46.0) Mean Corpuscular Volume 85.3 FL (80.0-100.0) 85.7 FL (80.0-100.0) 86.2 FL (80.0-100.0) Mean Corpuscular Hemoglobin 26.9 PG (27.0-34.0) 27.0 PG (27.0-34.0) 27.0 PG (27.0-34.0) Mean Corpuscular Hemoglobin Concent 31.5 % (32.0-36.0) 31.6 % (32.0-36.0) 31.4 % (32.0-36.0) Red Cell Distribution Width 14.0 % (11.6-17.2) 13.9 % (11.6-17.2) 14.2 % (11.6-17.2) Platelet Count 418 TH/MM3 (150-450) 424 TH/MM3 (150-450) 392 TH/MM3 (150-450) Mean Platelet Volume 8.7 FL (7.0-11.0) 8.5 FL (7.0-11.0) 8.4 FL (7.0-11.0) Neutrophils (%) (Auto) 76.1 % (16.0-70.0) 76.0 % (16.0-70.0) 74.9 % (16.0-70.0) Lymphocytes (%) (Auto) 12.5 % (9.0-44.0) 12.4 % (9.0-44.0) 13.2 % (9.0-44.0) Monocytes (%) (Auto) 11.1 % (0.0-8.0) 10.8 % (0.0-8.0) 10.9 % (0.0-8.0) Eosinophils (%) (Auto) 0.1 % (0.0-4.0) 0.7 % (0.0-4.0) 0.7 % (0.0-4.0) Basophils (%) (Auto) 0.2 % (0.0-2.0) 0.1 % (0.0-2.0) 0.3 % (0.0-2.0) Neutrophils # (Auto) 7.6 TH/MM3 (1.8-7.7) 7.4 TH/MM3 (1.8-7.7) 6.9 TH/MM3 (1.8-7.7) Lymphocytes # (Auto) 1.2 TH/MM3 (1.0-4.8) 1.2 TH/MM3 (1.0-4.8) 1.2 TH/MM3 (1.0-4.8) Monocytes # (Auto) 1.1 TH/MM3 (0-0.9) 1.1 TH/MM3 (0-0.9) 1.0 TH/MM3 (0-0.9) Eosinophils # (Auto) 0.0 TH/MM3 (0-0.4) 0.1 TH/MM3 (0-0.4) 0.1 TH/MM3 (0-0.4) Basophils # (Auto) 0.0 TH/MM3 (0-0.2) 0.0 TH/MM3 (0-0.2) 0.0 TH/MM3 (0-0.2) CBC Comment DIFF FINAL DIFF FINAL DIFF FINAL Differential Comment Blood Urea Nitrogen 23 MG/DL (7-18) 30 MG/DL (7-18) Creatinine 0.87 MG/DL (0.50-1.00) 1.03 MG/DL (0.50-1.00) Random Glucose 186 MG/DL (74-106) 195 MG/DL (74-106) Total Protein 6.0 GM/DL (6.4-8.2) Albumin 2.0 GM/DL (3.4-5.0) Calcium Level 8.4 MG/DL (8.5-10.1) 8.6 MG/DL (8.5-10.1) Alkaline Phosphatase 90 U/L (45-117) Aspartate Amino Transf (AST/SGOT) 16 U/L (15-37) Alanine Aminotransferase (ALT/SGPT) LESS THAN 6 U/L (10-53) Total Bilirubin 0.3 MG/DL (0.2-1.0) Sodium Level 140 MEQ/L (136-145) 142 MEQ/L (136-145) Potassium Level 3.6 MEQ/L (3.5-5.1) 3.9 MEQ/L (3.5-5.1) Chloride Level 105 MEQ/L (98-107) 108 MEQ/L (98-107) Carbon Dioxide Level 23.5 MEQ/L (21.0-32.0) 24.0 MEQ/L (21.0-32.0) Anion Gap 12 MEQ/L (5-15) 10 MEQ/L (5-15) Estimat Glomerular Filtration Rate 65 ML/MIN (>89) 53 ML/MIN (>89) Lactate Dehydrogenase 154 U/L (84-246) Tumor Marker Alpha Fetoprotein 2.1 NG/ML (0.5-8.0) Carcinoembryonic Antigen 0.6 NG/ML (0.2-5.0) CA 15-3 Antigen 2936.4 U/ML (0.0-32.4) CA 125 Antigen 456.5 U/ML (0.0-30.2) Tumor Marker HCG 10 MIU/ML (0-5) Thyroid Stimulating Hormone 3rd Gen 0.382 uIU/ML (0.358-3.740) Prothrombin Time 10.9 SEC (9.8-11.6) Prothromb Time International Ratio 1.1 RATIO Activated Partial Thromboplast Time 27.8 SEC (24.3-30.1) . Result Diagram: 05/20/17 0406 05/20/17 0406 Microbiology Microbiology Date/Time Source Procedure Growth Status 05/16/17 19:30 Blood Peripheral Aerobic Blood Culture - Preliminary NO GROWTH IN 4 DAYS Resulted 05/16/17 19:30 Blood Peripheral Anaerobic Blood Culture - Preliminary NO GROWTH IN 4 DAYS Resulted . Imaging Last [address] 05/19/17 0000 Signed Impressions: Service Date/Time: Friday, May 19, 2017 14:29 - CONCLUSION: Uncomplicated CT guided biopsy. Russell Faust MD . Procedures 05/19/2017: CT-guided biopsy next line. . Assessment and Plan Disease Oriented Problem List: (1) Pre-diabetes (2) S/P cholecystectomy (3) S/P hernia repair (4) Ovarian mass Symptom Scale: (1) Debility (2) Pain (3) Nausea and vomiting Pertinent Non-Medical Issues Psychosocial:Patient is originally from [place], [place]. She was , but her approximately 30+ years ago from complications related to either the liver or the lungs. The patient had 2 sisters. Her twin sister in her 40s from cervical cancer; she is reportedly estranged from another sister whose last known address was in [place]. Patient has a daughter (Mary) and a son (Damon). Her son lives in [place], and her daughter lives locally. The patient's daughter states her mother was always working when she was growing up, trying to support the family. 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 The patient currently lives alone with her cat, Dante. Spiritual: Jewish olesya Legal: Per [place] statutes, in the absence of written advanced directives healthcare proxy decision-making falls to the patient's 2 adult children. Ethical issues impacting care: No known ethical issues impacting care at this time. . Important Contacts Mary Edwards, daughter: [phone] . Prognosis Patient is a 67-year-old female recently diagnosed with an ovarian and uterine mass suspicious for carcinoma, pulmonary metastasis and carcinomatosis status post CT-guided biopsy today 05/19/2017. Possible treatment options pending biopsy results; prognosis guarded at this time. . Code Status: No Code Plan * NO CODE * Decision-making: Per [place] statutes, and absence of written advanced directives healthcare proxy decision making falls to the patient's 2 adult children. * Palliative care attempted to discuss designation of the HCS x 3 today, but we were unable to fully address decision-maker due to patient's lethargy. Will readdress tomorrow. * Goals pending biopsy results and session of possible treatment options. * Palliative care contact information provided to the patient and her daughter. * Spoke with patient's bedside nurse, Karen. * Symptom management - pain: Upon presentation to the ED, patient reporting constant burning abdominal pain rated 8/10 without medicating or exacerbating factors. Denies pain presently. PRN morphine every 3 hours IV and PRN Powell (5- 325mg/tab or 7.5-325mg/tab) is available q4 hours. Patient has received 7.5- 325mg work 1 in the past 24 hours. * Symptom management - dyspnea: CT angiogram on 05/17/2017 was negative for pulmonary embolism. However, multifocal metastatic pulmonary nodules and metastatic adenopathy were noted. Moderate bilateral pleural effusions, may consider offering thoracentesis if dyspnea worsens. Patient received 40 mg IV Lasix 1 today; PRN nebulizer treatments are available. * Symptom management - N/V: Patient had one episode of coffee ground emesis DRY PAN CHARGER. Nausea has resolved at this time. PRN Zofran is available q6 hours; she has received two 4mg doses in the past 24 hours. * Palliative care will continue to monitor patient throughout this hospitalization to establish trust, assist with symptom management and clarification of medical treatment goals. . Attestation To help prompt me to consider important information that might be impacting today's encounter and assessment, information from prior notes written by myself or my colleagues may have been "brought forward" into today's note. My signature on this note, however, is an attestation that I personally performed the exam, history, and/or decision-making noted today, and, unless otherwise indicated, the interactions with patient, family, and staff as well as the review of records all occurred today. I also attest that the listed assessment and stated plan reflect my best clinical judgment today based on the combination of historical information, prior notes, and today's exam/ interactions. When time spent is documented, it refers only to time spent today by the signer, or if indicated, combined time spent today by collaborating physician/nurse practitioner. . Juliana Heredia May 20, 2017 13:21
[2017-05-20] MEDS: ONDANSETRON HCL 4 MG/2 ML VIAL IVP PRN (21:46)
[2017-05-20] MEDS: MORPHINE SULFATE 4 MG/ML INJ IV PUSH PRN (21:56)
[2017-05-21] VITALS (7 sets, daily range): BP systolic 124–156; BP diastolic 79–90; PULSE 86–106; RESP 16–20; TEMP 97.6–98.9; O2SAT 94–96
[2017-05-21] MEDS: MORPHINE SULFATE 4 MG/ML INJ IV PUSH PRN ×2 (01:16→04:57)
[2017-05-21] MEDS: METOPROLOL TARTRATE 50 MG TAB PO SCH ×3 (04:57→21:24)
[2017-05-21 07:08] LABS: AUTOMATED NEUTROPHIL # 7.1 TH/MM3 (1.8-7.7); BASOPHIL % 0.3 % (0.0-2.0); EOSINOPHIL # 0.2 TH/MM3 (0-0.4); EOSINOPHIL % 1.7 % (0.0-4.0); HEMATOCRIT 40.4 % (35.0-46.0); HEMO FLAGS DIFF FINAL; LYMPH % 13.7 % (9.0-44.0); LYMPHOCYTE # 1.3 TH/MM3 (1.0-4.8); MEAN CELL VOLUME 85.6 FL (80.0-100.0); MEAN CORPUSCULAR HEMOGLOBIN 27.4 PG (27.0-34.0); MONO % 10.6 % (0.0-8.0); NEUT % 73.7 % (16.0-70.0); PLATELET COUNT 360 TH/MM3 (150-450); RED BLOOD COUNT 4.72 MIL/MM3 (4.00-5.30); WHITE BLOOD COUNT 9.7 TH/MM3 (4.0-11.0)
[2017-05-21 07:18] LABS: BICARBONATE 26.3 MEQ/L (21.0-32.0); POTASSIUM 3.9 MEQ/L (3.5-5.1)
--- NOTE | 2017-05-21 07:36 | PD.ONC.PN ---
Subjective Subjective Remarks patient sleeping in bed awakens to voice explained pathology has not resulted RN tells me she is going to rehab, she can follow up with us as outpt for pathology results and treatment options RN requesting paracentesis as patient get SOA just moving around her bed, she has not been ambulatory since admission. Objective Data Date Time Temp Pulse Resp B/P (MAP) Pulse Ox O2 Delivery O2 Flow Rate FiO2 05/21/17 04:46 98.3 101 16 156/90 (112) 95 05/21/17 00:00 98.9 88 20 139/80 (99) 95 05/20/17 22:20 21 05/20/17 20:00 102 05/20/17 20:00 98.8 102 22 129/73 (91) 94 05/20/17 19:32 95 Room Air 05/20/17 17:02 97 Nasal Cannula 1.00 05/20/17 15:28 98.1 91 20 113/71 (85) 98 05/20/17 14:34 97 Nasal Cannula 3.00 05/20/17 12:00 98.2 101 20 118/57 (77) 97 05/20/17 10:47 96 Nasal Cannula 3.00 05/20/17 08:05 97.2 95 22 127/63 (84) 94 05/20/17 08:00 95 Result Diagram: 05/21/17 0613 05/21/17 0613 Laboratory Results Laboratory Tests Test 05/21/17 06:13 White Blood Count 9.7 TH/MM3 Red Blood Count 4.72 MIL/MM3 Hemoglobin 12.9 GM/DL Hematocrit 40.4 % Mean Corpuscular Volume 85.6 FL Mean Corpuscular Hemoglobin 27.4 PG Mean Corpuscular Hemoglobin Concent 32.0 % Red Cell Distribution Width 14.0 % Platelet Count 360 TH/MM3 Mean Platelet Volume 8.5 FL Neutrophils (%) (Auto) 73.7 % Lymphocytes (%) (Auto) 13.7 % Monocytes (%) (Auto) 10.6 % Eosinophils (%) (Auto) 1.7 % Basophils (%) (Auto) 0.3 % Neutrophils # (Auto) 7.1 TH/MM3 Lymphocytes # (Auto) 1.3 TH/MM3 Monocytes # (Auto) 1.0 TH/MM3 Eosinophils # (Auto) 0.2 TH/MM3 Basophils # (Auto) 0.0 TH/MM3 CBC Comment DIFF FINAL Differential Comment Blood Urea Nitrogen 31 MG/DL Creatinine 1.04 MG/DL Random Glucose 177 MG/DL Calcium Level 8.1 MG/DL Sodium Level 141 MEQ/L Potassium Level 3.9 MEQ/L Chloride Level 107 MEQ/L Carbon Dioxide Level 26.3 MEQ/L Anion Gap 8 MEQ/L Estimat Glomerular Filtration Rate 53 ML/MIN Administered Medications Medications (Trade) Dose Ordered Sig/Benita Route PRN Reason Start Time Stop Time Status Last Admin Dose Admin Sodium Chloride (NS Flush) 2 ml UNSCH PRN IV FLUSH FLUSH AFTER USING IV ACCESS 05/16/17 14:15 05/17/17 09:14 Ondansetron HCl (Zofran Inj) 4 mg Q6H PRN IVP NAUSEA OR VOMITING 05/16/17 18:45 05/20/17 21:46 Acetaminophen/ Hydrocodone Bitart ([place] 7.5-325 Mg) 1 tab Q4H PRN PO PAIN SCALE 6 TO 10 05/16/17 18:45 05/18/17 20:14 Morphine Sulfate (Morphine Inj) 2 mg Q3H PRN IV PUSH Pain 3-5; if unable to take PO 05/16/17 18:45 05/21/17 04:57 Pantoprazole Sodium (Protonix) 20 mg DAILY PO 05/17/17 09:00 05/20/17 08:18 Insulin Aspart (NovoLOG SUPPLEMENTAL SCALE) 1 ACHS SLIDING SCALE SQ 05/16/17 21:00 05/20/17 20:03 Albuterol/ Ipratropium (Duoneb Neb) 1 ampule Q4HR NEB PRN NEB SHORTNESS OF BREATH 05/17/17 07:30 05/18/17 20:30 Metoprolol Tartrate (Lopressor) 50 mg Q8HR PO 05/19/17 14:00 05/21/17 04:57 Objective Remarks GENERAL: Well-nourished, well-developed patient. SKIN: Warm and dry. HEAD: Normocephalic. EYES: No scleral icterus. No injection or drainage. CARDIOVASCULAR: Regular rate and rhythm without murmurs. RESPIRATORY: Breath sounds equal bilaterally. No accessory muscle use. GASTROINTESTINAL: Abdomen firm and distended MUSCULOSKELETAL: Adequate muscle tone. NEUROLOGICAL: No obvious focal deficit. sleepy Assessment/Plan Problem List: (1) Ovarian mass ICD Codes: N83.9 - Noninflammatory disorder of ovary, fallopian tube and broad ligament, unspecified Status: Acute Plan: s/p biopsy 05/19/17: pathology pending, patient can follow up with gynecological assistant/ onc as outpt for results and treatment options. CT scan showing large amount of ascites: placed order for diagnostic and therapeutic paracentesis case management assisting with SNF placement for rehab (2) Metastasis ICD Codes: C79.9 - Secondary malignant neoplasm of unspecified site (3) Abdominal pain ICD Codes: R10.9 - Unspecified abdominal pain Status: Resolved Plan: meds per EMR pain controlled at this time IR for u/s guided paracentesis Problem Qualifiers (1) Metastasis: (2) Abdominal pain: Qualified Codes: R10.84 - Generalized abdominal pain Teddy Etienne May 21, 2017 07:36
[2017-05-21] MEDS: INSULIN ASPART SUPPLEMENTAL SCALE SQ SCH ×4 (08:00→21:24)
[2017-05-21] MEDS: PANTOPRAZOLE SOD 20 MG DELAYED RELEASE TAB PO SCH (09:24)
--- NOTE | 2017-05-21 09:37 | RADRPT ---
EXAM DATE/TIME: 05/21/2017 07:59 [facility] COMPARISON: No previous studies available for comparison. INDICATIONS : Ascities. MEDICAL HISTORY : Hypertension. SURGICAL HISTORY : Cholecystectomy. ENCOUNTER: Initial ACUITY: 1 day PAIN SCORE: 3/10 LOCATION: Abdomen. AREA EVALUATED: Abdomen. FINDINGS: Imaging of the abdomen and pelvis was performed to evaluate for ascites for possible paracentesis. A loculated collection is identified in the left lower quadrant and a small collection in the right lo wer quadrant. Volume is insufficient for safe percutaneous drainage at this point. Can reassess tomor row, however. CONCLUSION: Insufficient volume for ultrasound guided percutaneous drainage. Can reassess in 24 hours. Jim Harvey MD on May 21, 2017 at 9:34 Board Certified Radiologist. This report was verified electronically.
--- NOTE | 2017-05-21 10:20 | HHI.PR ---
Subjective Remarks Patient c/o periumbilical abdominal pain today and belching. Denies dyspnea. States she prefers to go home with her daughter. Objective Vitals Vital Signs Date Time Temp Pulse Resp B/P (MAP) Pulse Ox O2 Delivery O2 Flow Rate FiO2 05/21/17 09:31 97.6 86 18 133/84 (100) 95 05/21/17 09:03 95 21 05/21/17 04:46 98.3 101 16 156/90 (112) 95 05/21/17 00:00 98.9 88 20 139/80 (99) 95 05/20/17 22:20 21 05/20/17 20:00 102 05/20/17 20:00 98.8 102 22 129/73 (91) 94 05/20/17 19:32 95 Room Air 05/20/17 17:02 97 Nasal Cannula 1.00 05/20/17 15:28 98.1 91 20 113/71 (85) 98 05/20/17 14:34 97 Nasal Cannula 3.00 05/20/17 12:00 98.2 101 20 118/57 (77) 97 05/20/17 10:47 96 Nasal Cannula 3.00 I/O 05/20/17 05/20/17 05/20/17 05/21/17 05/21/17 05/21/17 07:00 15:00 23:00 07:00 15:00 23:00 Intake Total 200 ml 580 ml Balance 200 ml 580 ml Intake Oral 200 ml 580 ml # Voids 5 5 Result Diagram: 05/21/1761205/21/17612 Objective Remarks GENERAL: Chronically ill appearing CF patient. SKIN: Warm and dry. HEAD: Normocephalic. EYES: No scleral icterus. No injection or drainage. NECK: Supple, trachea midline. No JVD or lymphadenopathy. CARDIOVASCULAR: Regular rate and rhythm without murmurs, gallops, or rubs. RESPIRATORY: Breath sounds diminished at bases, no wheezing, on RA. GASTROINTESTINAL: Abdomen massive, protuberant, mildly distended, mildly ttp periumbilical EXTREMITIES: 1+ pedal edema NEUROLOGICAL: Awake, alert, and oriented x 3. Non-focal. 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 Contreras yesterday. Pathology may return today. No further inpatient workup as planned and patient may follow-up in his office as outpatient. -Abdominal paracentesis was ordered however there was not enough fluid to drain. -Patient does decide on chemotherapy could consider doing port prior to discharge, however this may also be done in the outpatient setting. SIRS suspect secondary to pelvic inflammation/ abnormality in bilateral pleural effusions - Tachycardia, WBC 12 - resolved. -BC neg x 3 days, WBC normal -no evidence of pna or uti - Pain management IV morphine when necessary - Zofran For nausea Respiratory distress -CTA negative for PE however positive for multifocal metastasis of pulmonary nodule and pulmonary adenopathy - DuoNeb when necessary and maintain oxygen saturation above 92% -moderate b/l pleural effusions -if dyspnea worsens can offer thoracentesis -currently asymptomatic -S/p 40 mg IV Lasix x 1 05/19 Borderline diabetes, hyperglycemia - Insulin sliding scale - Monitor Accu-Cheks - hemoglobin A1c 10 -cont levemir 5 units SQ HS HTN -cont metoprolol BID DVT proph - SCDs Discharge Planning Patient is quite weak requiring max assist with physical therapy. May require retirement facility. Pt prefers to go home with daughter. Problem Qualifiers (1) Abdominal pain: Qualified Codes: R10.84 - Generalized abdominal pain (2) Metastasis: Leslie Rivers MD May 21, 2017 10:20
--- NOTE | 2017-05-21 10:20 | HHI.FF ---
Face to Face Verification Diagnosis: (1) Ovarian mass (2) Metastasis (3) Abdominal pain (4) Debility Physical Therapy Order: Evaluate and Treat Occupational Therapy Order: Evaluate and Treat Home Health Nursing Order: Medical education Diabetic education Nursing assessment with vital signs I have seen patient Rosalinda Edwards on 05/21/17. My clinical findings support the need for the requested home health care services because: Limited ability to care for self Need for psychosocial assistance I certify that my clinical findings support that this patient is homebound because: Unsteady gait/balance Need for psychosocial assistance Leslie Rivers MD May 21, 2017 10:20
--- NOTE | 2017-05-21 11:54 | HHI.HCPN ---
Reason for visit a. To assist with evaluation and management of symptoms including:nausea/ vomiting, pain, n/v, dyspnea b. To assist medical decision maker(s) with: better understanding of current medical conditions; weighing benefits/burdens of medical treatment options; making medical treatment decisions. . Subjective/Interval History Follow-up visit for symptom management and clarification of medical treatment goals. Patient was seen and assessed in room 233. Also present Palliative care DIGITAL MARKETING MANAGER, Susan Houston. Patient is more alert today. Complaining of abdominal pain and nausea. Patient is rated 7/10 and decreasing to 5/10 after being medicated. Abdomen is distended and tender to palpation. Paracentesis was ordered however there was insufficient fluid to drain. Current orders for PRN [place] and IV morphine as needed for pain. Patient has received 2mg IV morphine 3 in the past 24 hours. PRN Zofran has been administered only once. Patient continues to have dyspnea with minimal exertion. CTA on 05/17/2017 was negative for PE however multifocal metastasis of pulmonary nodule and pulmonary adenopathy is noted. Oxygen saturation in the mid to high 90s on room air. DuoNebs are available q4 hours PRN for shortness of breath and to maintain oxygen saturation above 92%. Afebrile. Blood cultures negative 3 days; WBC normal; no evidence of UTI are PNA. Patient initially wanted hospice, but after talking to her daughter she decided to pursue further diagnostic data before making a decision. Awaiting pathology from biopsy on 05/19/2017. Patient is extremely weak requiring maximum assist with physical therapy. Recommendations were made for SNF placement, but the patient prefers to go home with her daughter and home health care. Community DNR completed and placed in patient's chart. Patient showing insight and judgment related to her current medical conditions but wants her daughter to make decisions. HCS designation form completed today 05/21/2017 designating the patient's daughter (Mary Edwards) as the healthcare surrogate decision maker and son (Damon) as the alternate. Hospice will continue to follow outpatient. . Family/friend interactions Spoke with patient's daughter via telephone to provide an update on the patient' s clinical condition. Patient is quite weak and requires maximum assist to be repositioned in bed. The patient's daughter works 2 jobs and verbalizes anxiety over her ability to care for her mother. Patient's daughter was amenable to discharge plan of short-term SNF for rehabilitation. However the patient now wants to return home with her daughter, and states her daughter has "lots of people from the christianity to help her." Daughter (Mary) was unable to meet with Palliative care today; tentative family meeting scheduled for tomorrow afternoon 05/22/17. . Advance Directives Advance Directive Specifics Documented care wishes: No known documented care wishes were completed. . Objective Vital Signs Date Time Temp Pulse Resp B/P (MAP) Pulse Ox O2 Delivery O2 Flow Rate FiO2 05/21/17 09:31 97.6 86 18 133/84 (100) 95 05/21/17 09:03 95 21 05/21/17 04:46 98.3 101 16 156/90 (112) 95 05/21/17 00:00 98.9 88 20 139/80 (99) 95 05/20/17 22:20 21 05/20/17 20:00 102 05/20/17 20:00 98.8 102 22 129/73 (91) 94 05/20/17 19:32 95 Room Air 05/20/17 17:02 97 Nasal Cannula 1.00 05/20/17 15:28 98.1 91 20 113/71 (85) 98 05/20/17 14:34 97 Nasal Cannula 3.00 05/20/17 12:00 98.2 101 20 118/57 (77) 97 Intake & Output 05/21/17 05/21/17 07:00 19:00 Intake Total 580 ml Balance 580 ml Intake Oral 580 ml # Voids 5 . Physical Exam CONSTITUTIONAL/GENERAL: This is a chronically ill appearing female patient who is quite weak but in no acute distress. TUBES/LINES/DRAINS: PIV 2, nasal cannula SKIN: No jaundice, rashes, or lesions. Skin temperature appropriate. Not diaphoretic. HEAD: Atraumatic. Normocephalic. EYES: Pupils equal and round and reactive. No scleral icterus. No injection or drainage. Fundi not examined. ENT: Hearing grossly normal. Nose without bleeding or purulent drainage. NECK: Trachea midline. CARDIOVASCULAR: Regular rate and rhythm without murmurs, gallops, or rubs. No JVD. Peripheral pulses symmetric. RESPIRATORY/CHEST: Respirations unlabored. Breath sounds diminished bilaterally. GASTROINTESTINAL: Abdomen round, distended, slightly tender to palpation. Bowel sounds present. GENITOURINARY: Without palpable bladder distension. MUSCULOSKELETAL: Extremities without clubbing, cyanosis, or edema. No mottling or clubbing. LYMPHATICS: No palpable cervical or supraclavicular adenopathy. NEUROLOGICAL: Awake and alert. Patient answers questions and follows commands; able to make her needs known. PSYCHIATRIC: No obvious anxiety/depression. no apparent hallucinations or other psychotic thought process. . Diagnostic Tests Laboratory Laboratory Tests Test 05/18/17 16:51 05/20/17 04:06 05/21/17 06:13 White Blood Count 9.7 TH/MM3 (4.0-11.0) 9.1 TH/MM3 (4.0-11.0) 9.7 TH/MM3 (4.0-11.0) Red Blood Count 4.87 MIL/MM3 (4.00-5.30) 4.69 MIL/MM3 (4.00-5.30) 4.72 MIL/MM3 (4.00-5.30) Hemoglobin 13.2 GM/DL (11.6-15.3) 12.7 GM/DL (11.6-15.3) 12.9 GM/DL (11.6-15.3) Hematocrit 41.8 % (35.0-46.0) 40.5 % (35.0-46.0) 40.4 % (35.0-46.0) Mean Corpuscular Volume 85.7 FL (80.0-100.0) 86.2 FL (80.0-100.0) 85.6 FL (80.0-100.0) Mean Corpuscular Hemoglobin 27.0 PG (27.0-34.0) 27.0 PG (27.0-34.0) 27.4 PG (27.0-34.0) Mean Corpuscular Hemoglobin Concent 31.6 % (32.0-36.0) 31.4 % (32.0-36.0) 32.0 % (32.0-36.0) Red Cell Distribution Width 13.9 % (11.6-17.2) 14.2 % (11.6-17.2) 14.0 % (11.6-17.2) Platelet Count 424 TH/MM3 (150-450) 392 TH/MM3 (150-450) 360 TH/MM3 (150-450) Mean Platelet Volume 8.5 FL (7.0-11.0) 8.4 FL (7.0-11.0) 8.5 FL (7.0-11.0) Neutrophils (%) (Auto) 76.0 % (16.0-70.0) 74.9 % (16.0-70.0) 73.7 % (16.0-70.0) Lymphocytes (%) (Auto) 12.4 % (9.0-44.0) 13.2 % (9.0-44.0) 13.7 % (9.0-44.0) Monocytes (%) (Auto) 10.8 % (0.0-8.0) 10.9 % (0.0-8.0) 10.6 % (0.0-8.0) Eosinophils (%) (Auto) 0.7 % (0.0-4.0) 0.7 % (0.0-4.0) 1.7 % (0.0-4.0) Basophils (%) (Auto) 0.1 % (0.0-2.0) 0.3 % (0.0-2.0) 0.3 % (0.0-2.0) Neutrophils # (Auto) 7.4 TH/MM3 (1.8-7.7) 6.9 TH/MM3 (1.8-7.7) 7.1 TH/MM3 (1.8-7.7) Lymphocytes # (Auto) 1.2 TH/MM3 (1.0-4.8) 1.2 TH/MM3 (1.0-4.8) 1.3 TH/MM3 (1.0-4.8) Monocytes # (Auto) 1.1 TH/MM3 (0-0.9) 1.0 TH/MM3 (0-0.9) 1.0 TH/MM3 (0-0.9) Eosinophils # (Auto) 0.1 TH/MM3 (0-0.4) 0.1 TH/MM3 (0-0.4) 0.2 TH/MM3 (0-0.4) Basophils # (Auto) 0.0 TH/MM3 (0-0.2) 0.0 TH/MM3 (0-0.2) 0.0 TH/MM3 (0-0.2) CBC Comment DIFF FINAL DIFF FINAL DIFF FINAL Differential Comment Prothrombin Time 10.9 SEC (9.8-11.6) Prothromb Time International Ratio 1.1 RATIO Activated Partial Thromboplast Time 27.8 SEC (24.3-30.1) Blood Urea Nitrogen 30 MG/DL (7-18) 31 MG/DL (7-18) Creatinine 1.03 MG/DL (0.50-1.00) 1.04 MG/DL (0.50-1.00) Random Glucose 195 MG/DL (74-106) 177 MG/DL (74-106) Calcium Level 8.6 MG/DL (8.5-10.1) 8.1 MG/DL (8.5-10.1) Sodium Level 142 MEQ/L (136-145) 141 MEQ/L (136-145) Potassium Level 3.9 MEQ/L (3.5-5.1) 3.9 MEQ/L (3.5-5.1) Chloride Level 108 MEQ/L (98-107) 107 MEQ/L (98-107) Carbon Dioxide Level 24.0 MEQ/L (21.0-32.0) 26.3 MEQ/L (21.0-32.0) Anion Gap 10 MEQ/L (5-15) 8 MEQ/L (5-15) Estimat Glomerular Filtration Rate 53 ML/MIN (>89) 53 ML/MIN (>89) . Result Diagram: 05/21/17 0613 05/21/17 0613 Imaging Procedures 05/19/2017: CT-guided biopsy next line. . Assessment and Plan Disease Oriented Problem List: (1) Pre-diabetes (2) S/P cholecystectomy (3) S/P hernia repair (4) Ovarian mass Symptom Scale: (1) Debility (2) Pain (3) Nausea and vomiting Pertinent Non-Medical Issues Psychosocial:Patient is originally from [place], [place]. She was , but her approximately 30+ years ago from complications related to either the liver or the lungs. The patient had 2 sisters. Her twin sister in her 40s from cervical cancer; she is reportedly estranged from another sister whose last known address was in [place]. Patient has a daughter (Mary) and a son (Damon). Her son lives in [place], and her daughter lives locally. The patient's daughter states her mother was always working when she was growing up, trying to support the family. 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 The patient currently lives alone with her cat, Dante. Spiritual: Alevism olesya Legal: Per [place] statutes, in the absence of written advanced directives healthcare proxy decision-making falls to the patient's 2 adult children. Ethical issues impacting care: No known ethical issues impacting care at this time. . Important Contacts Mary Edwards, daughter: [phone] . Prognosis Patient is a 67-year-old female recently diagnosed with an ovarian and uterine mass suspicious for carcinoma, pulmonary metastasis and carcinomatosis status post CT-guided biopsy today 05/19/2017. Possible treatment options pending biopsy results; prognosis guarded at this time. . Code Status: No Code Plan * NO CODE * Community DNR completed today and placed in patient's chart. * Decision-making: Patient shows insight and judgment related to her current medical conditions but is currently to during decision-making to her daughter. HCS designation form completed today 05/21/2017 designating the patient's daughter (Mary Edwards) as the healthcare surrogate decision maker and son ( Damon) as the alternate. * Goals pending biopsy results and determination of possible treatment options. * Spoke with patient's daughter via telephone to provide an update on the patient's clinical condition. Patient is quite weak and requires maximum assist to be repositioned in bed. The patient's daughter works 2 jobs and verbalizes anxiety over her ability to care for her mother. Patient's daughter was amenable to discharge plan of short-term SNF for rehabilitation. However the patient now wants to return home with her daughter, and states her daughter has "lots of people from the christianity to help her." Daughter (Mary) was unable to meet with Palliative care today; tentative family meeting scheduled for tomorrow afternoon 05/22/17. * Symptom management - pain:Complaining of abdominal pain. Patient is rated 7/ 10 and decreasing to 5/10 after being medicated. Abdomen is distended and tender to palpation. Paracentesis was ordered however there was insufficient fluid to drain. Current orders for PRN [place] and IV morphine as needed for pain. Patient has received 2mg IV morphine 3 in the past 24 hours. * Symptom management - dyspnea: Patient having dyspnea with minimal exertion; oxygen saturations in the mid to upper 90s on room air. CT angiogram on 2016 was negative for pulmonary embolism. However, multifocal metastatic pulmonary nodules and metastatic adenopathy were noted. Duonebs are available as needed. 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 Patient complaining of nausea this morning. Abdomen is distended and tender to touch. Paracentesis was ordered but there was not enough fluid to drain. PRN Zofran is available q6 hours and has been administered 1 over the past 24 hours. * Palliative care will continue to monitor patient throughout this hospitalization to establish trust, assist with symptom management and clarification of medical treatment goals. . Attestation To help prompt me to consider important information that might be impacting today's encounter and assessment, information from prior notes written by myself or my colleagues may have been "brought forward" into today's note. My signature on this note, however, is an attestation that I personally performed the exam, history, and/or decision-making noted today, and, unless otherwise indicated, the interactions with patient, family, and staff as well as the review of records all occurred today. I also attest that the listed assessment and stated plan reflect my best clinical judgment today based on the combination of historical information, prior notes, and today's exam/ interactions. When time spent is documented, it refers only to time spent today by the signer, or if indicated, combined time spent today by collaborating physician/nurse practitioner. . Juliana Heredia May 21, 2017 11:54
[2017-05-22] VITALS (7 sets, daily range): BP systolic 116–145; BP diastolic 57–91; PULSE 93–103; RESP 16–20; TEMP 97–98.5; O2SAT 91–98
[2017-05-22] MEDS: METOPROLOL TARTRATE 50 MG TAB PO SCH ×3 (05:22→22:01)
--- NOTE | 2017-05-22 07:56 | HHI.PR ---
Subjective . No new c/o Objective . afeb, vss no chage in overall status non-acute distended abdomen Assessment/Plan . Pathology is still pending Clinically a health program manager malignancy is probable but more information is needed Low volume of ascites, so paracentesis not performed She remains uncertain regarding treatment She is asked to follow-up with me in my office within 1 week (if she is discharged over the weekend) Q&A, she expresses good understanding Tammy Contreras MD May 22, 2017 07:56
[2017-05-22] MEDS: INSULIN ASPART SUPPLEMENTAL SCALE SQ SCH ×4 (08:00→22:04)
[2017-05-22] MEDS: PANTOPRAZOLE SOD 20 MG DELAYED RELEASE TAB PO SCH (09:01)
[2017-05-22] MEDS: SODIUM CHLORIDE 0.9% FLUSH 10 ML FLUSH IV FLUSH PRN (09:01)
--- NOTE | 2017-05-22 09:54 | HHI.PR ---
Subjective Remarks In bed appears in some distres had a BM and feels with sob and is wheezing. No fever or chills. No abd malin .No n/v. Objective Vitals Vital Signs Date Time Temp Pulse Resp B/P (MAP) Pulse Ox O2 Delivery O2 Flow Rate FiO2 05/22/17 08:05 92 Nasal Cannula 05/22/17 04:00 98.5 103 19 116/69 (85) 93 05/22/17 02:00 92 Room Air 05/22/17 00:00 98.5 94 16 145/83 (103) 91 05/21/17 21:15 94 Room Air 05/21/17 20:00 97.8 103 17 128/87 (101) 94 05/21/17 20:00 99 05/21/17 17:25 98.4 90 18 124/80 (95) 96 05/21/17 13:07 98.0 106 18 130/79 (96) 95 05/21/17 11:07 Room Air I/O 05/21/17 05/21/17 05/21/17 05/22/17 05/22/17 05/22/17 07:00 15:00 23:00 07:00 15:00 23:00 Intake Total 1200 ml 200 ml Balance 1200 ml 200 ml Intake Oral 1200 ml 200 ml # Voids 3 2 Result Diagram: 05/21/1713 05/21/17612 Imaging Last Impressions Abdomen Ultrasound 05/21/17 0000 Signed Impressions: Service Date/Time: May 07:59 - CONCLUSION: Insufficient volume for ultrasound guided percutaneous drainage. Can reassess in 24 hours. Jim Harvey MD Biopsy CT 05/19/17 0000 Signed Impressions: Service Date/Time: Friday, May 19, 2017 14:29 - CONCLUSION: Uncomplicated CT guided biopsy. Russell Faust MD CT Angiography 05/17/17 0000 Signed Impressions: Service Date/Time: Wednesday, May 17, 2017 08:45 - CONCLUSION: 1. No evidence for pulmonary embolism. 2. Moderate bilateral pleural effusions with bibasilar atelectasis greater on the right. 3. Multifocal metastatic pulmonary nodules and metastatic adenopathy. Noe Agustin MD Chest X-Ray 05/16/17 1405 Signed Impressions: Service Date/Time: Tuesday, May 16, 2017 14:55 - CONCLUSION: 1. No gross free air. 2. Small loculated right-sided pleural effusion with patchy airspace disease in the right lower lung zone and associative volume loss. Milo Matute MD Abdomen/Pelvis CT 05/16/17 1405 Signed Impressions: Service Date/Time: Tuesday, May 16, 2017 17:09 - CONCLUSION: 1. Examination is abnormal. There are 2 dominant masses in the pelvis. A large multicystic left adnexal mass measuring up to 13.3 x 13.5 cm and an apparent heterogeneous myometrial uterine mass measuring 10.3 x 9.2 cm. There is extensive mesenteric carcinomatosis, ascites, mild retroperitoneal adenopathy, soft tissue studding of the liver surface and bilateral pulmonary nodules at the lung bases. Findings are consistent with extensive metastatic disease in a pattern most consistent with ovarian carcinoma. However, differential considerations include uterine malignancy given the large uterine mass with apparent mass effect on the distal right ureter. 2. Moderate right hydronephrosis and hydroureter secondary to mass effect from right pelvic mass 3. Small left and [id number] right pleural effusions. Milo Matute MD Objective Remarks GENERAL: Chronically ill appearing CF patient. SKIN: Warm and dry. HEAD: Normocephalic. EYES: No scleral icterus. No injection or drainage. NECK: Supple, trachea midline. No JVD or lymphadenopathy. CARDIOVASCULAR: Regular rate and rhythm without murmurs, gallops, or rubs. RESPIRATORY: Breath sounds diminished at bases, no wheezing, on RA. GASTROINTESTINAL: Abdomen massive, protuberant, mildly distended, mildly ttp periumbilical EXTREMITIES: 1+ pedal edema NEUROLOGICAL: Awake, alert, and oriented x 3. Non-focal. 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 Contreras yesterday. Pathology may return today. No further inpatient workup as planned and patient may follow-up in his office as outpatient. -Abdominal paracentesis was ordered however there was not enough fluid to drain. -Patient does decide on chemotherapy could consider doing port prior to discharge, however this may also be done in the outpatient setting. SIRS suspect secondary to pelvic inflammation/ abnormality in bilateral pleural effusions - Tachycardia, WBC 12 - resolved. -BC neg x 3 days, WBC normal -no evidence of pna or uti - Pain management IV morphine when necessary - Zofran For nausea Respiratory distress -CTA negative for PE however positive for multifocal metastasis of pulmonary nodule and pulmonary adenopathy - DuoNeb when necessary and maintain oxygen saturation above 92% -moderate b/l pleural effusions -if dyspnea worsens can offer thoracentesis -currently asymptomatic -S/p 40 mg IV Lasix x 1 05/19 Borderline diabetes, hyperglycemia - Insulin sliding scale - Monitor Accu-Cheks - hemoglobin A1c 10 -cont levemir 5 units SQ HS HTN -cont metoprolol BID DVT proph - SCDs Discharge Planning Patient is quite weak requiring max assist with physical therapy. May require [facility] facility. Pt prefers to go home with daughter. DC when improves and cleared by consultants Problem Qualifiers (1) Abdominal pain: Qualified Codes: R10.84 - Generalized abdominal pain (2) Metastasis: Tonya Malone MD May 22, 2017 09:54
[2017-05-22] MEDS ORDERED: MIRA3350 PO (13:32)
--- NOTE | 2017-05-22 16:57 | HHI.HCPN ---
Reason for visit a. To assist with evaluation and management of symptoms including:nausea/ vomiting, pain, n/v, dyspnea b. To assist medical decision maker(s) with: better understanding of current medical conditions; weighing benefits/burdens of medical treatment options; making medical treatment decisions. . Subjective/Interval History Follow-up visit for symptom management and clarification of medical treatment goals. Patient was seen and assessed in room 233. Also present Palliative care PERSONAL LINES AGENT, Susan Houston and patient's daughter (Mary). Patient is very tired. She appears to be in moderate respiratory distress although she denies feeling short of breath. Patient intermittently using PRN oxygen, oxygen saturations stable. = CTA on 05/17/2017 was negative for PE however multifocal metastasis of pulmonary nodule and pulmonary adenopathy is noted. = DuoNebs are available q4 hours PRN for shortness of breath and to maintain oxygen saturation above 92%. Patient reports ongoing intermittent abdominal pain; she is unable to identify any exacerbating factors. Patient was unable to describe pain and when asked to rate pain on a scale of 0-10 she replied "I can handle it." PRN Morphine and [facility] but have not been administered in the past 24 hours. Nausea and vomiting have resolved, frequent belching. Patient wants to eat but states she can only take a few bites before becoming full Patient initially wanted hospice, but after talking to her daughter she decided to pursue further diagnostic data before making a decision. Patient showing insight and judgment related to her current medical conditions but wants her daughter to make decisions. Awaiting pathology from biopsy from 05/19/2017. Patient is extremely weak requiring maximum assist with physical therapy. She states she ambulated approximately 10 feet from the bed to the recliner with 2 person assist. Community DNR completed on 05/21/17 after discussion with patient at which time she confirmed that in the event of cardio-pulmonary arrest she would not want to be allowed to pass peacefully and naturally without aggressive interventions. Today, the patient's daughter has rescinded the community DNR and requests CODE STATUS be changed to FULL CODE. She states her brother lives in [place] and she needs to include him on some of these decisions. The patient has chosen to allow her daughter to make these changes. Nurse notified of CODE STATUS change. Plan for short term placement at an SNF; daughter has selected [facility] as their first choice and [facility] as their alternate choice. . Family/friend interactions Met with patient and daughter at bedside. Patient continues to express uncertainty over whether or not she wants to pursue aggressive interventions. Patient's daughter wants her mother to remain optimistic until pathology is back and treatment options have been determined. Current plan for SNF placement. . Advance Directives Advance Directive Specifics Documented care wishes: No known documented care wishes were completed. . Objective Vital Signs Date Time Temp Pulse Resp B/P (MAP) Pulse Ox O2 Delivery O2 Flow Rate FiO2 05/22/17 12:28 97.8 100 16 120/64 (82) 94 05/22/17 11:10 Room Air 05/22/17 08:05 92 Nasal Cannula 05/22/17 08:00 98.4 98 16 117/57 (77) 95 05/22/17 04:00 98.5 103 19 116/69 (85) 93 05/22/17 02:00 92 Room Air 05/22/17 00:00 98.5 94 16 145/83 (103) 91 05/21/17 21:15 94 Room Air 05/21/17 20:00 97.8 103 17 128/87 (101) 94 05/21/17 20:00 99 05/21/17 17:25 98.4 90 18 124/80 (95) 96 Intake & Output 05/22/17 05/22/17 07:00 19:00 Intake Total 200 ml Balance 200 ml Intake Oral 200 ml # Voids 2 # Bowel Movements 1 . Physical Exam CONSTITUTIONAL/GENERAL: This is a chronically ill appearing female patient who is quite weak, appears to be in some respiratory distress. TUBES/LINES/DRAINS: PIV 2, nasal cannula SKIN: No jaundice, rashes, or lesions. Ashen color Skin temperature appropriate. Not diaphoretic. HEAD: Atraumatic. Normocephalic. EYES: Pupils equal and round and reactive. No scleral icterus. No injection or drainage. Fundi not examined. ENT: Hearing grossly normal. Nose without bleeding or purulent drainage. NECK: Trachea midline. CARDIOVASCULAR: Regular rate and rhythm without murmurs, gallops, or rubs. No JVD. Peripheral pulses symmetric. RESPIRATORY/CHEST: Respirations appear moderately labored, although patient denies feeling short of breath. Breath sounds diminished bilaterally. Using PRN oxygen intermittently, oxygen saturation stable GASTROINTESTINAL: Abdomen round, distended, slightly tender to palpation. Bowel sounds present. GENITOURINARY: Without palpable bladder distension. MUSCULOSKELETAL: Extremities without clubbing, cyanosis, or edema. No mottling or clubbing. LYMPHATICS: No palpable cervical or supraclavicular adenopathy. NEUROLOGICAL: Tired. Patient answers questions and follows commands; able to make her needs known. PSYCHIATRIC: No obvious anxiety/depression. no apparent hallucinations or other psychotic thought process. . Diagnostic Tests Laboratory Laboratory Tests Test 05/20/17 04:06 05/21/17 06:13 White Blood Count 9.1 TH/MM3 (4.0-11.0) 9.7 TH/MM3 (4.0-11.0) Red Blood Count 4.69 MIL/MM3 (4.00-5.30) 4.72 MIL/MM3 (4.00-5.30) Hemoglobin 12.7 GM/DL (11.6-15.3) 12.9 GM/DL (11.6-15.3) Hematocrit 40.5 % (35.0-46.0) 40.4 % (35.0-46.0) Mean Corpuscular Volume 86.2 FL (80.0-100.0) 85.6 FL (80.0-100.0) Mean Corpuscular Hemoglobin 27.0 PG (27.0-34.0) 27.4 PG (27.0-34.0) Mean Corpuscular Hemoglobin Concent 31.4 % (32.0-36.0) 32.0 % (32.0-36.0) Red Cell Distribution Width 14.2 % (11.6-17.2) 14.0 % (11.6-17.2) Platelet Count 392 TH/MM3 (150-450) 360 TH/MM3 (150-450) Mean Platelet Volume 8.4 FL (7.0-11.0) 8.5 FL (7.0-11.0) Neutrophils (%) (Auto) 74.9 % (16.0-70.0) 73.7 % (16.0-70.0) Lymphocytes (%) (Auto) 13.2 % (9.0-44.0) 13.7 % (9.0-44.0) Monocytes (%) (Auto) 10.9 % (0.0-8.0) 10.6 % (0.0-8.0) Eosinophils (%) (Auto) 0.7 % (0.0-4.0) 1.7 % (0.0-4.0) Basophils (%) (Auto) 0.3 % (0.0-2.0) 0.3 % (0.0-2.0) Neutrophils # (Auto) 6.9 TH/MM3 (1.8-7.7) 7.1 TH/MM3 (1.8-7.7) Lymphocytes # (Auto) 1.2 TH/MM3 (1.0-4.8) 1.3 TH/MM3 (1.0-4.8) Monocytes # (Auto) 1.0 TH/MM3 (0-0.9) 1.0 TH/MM3 (0-0.9) Eosinophils # (Auto) 0.1 TH/MM3 (0-0.4) 0.2 TH/MM3 (0-0.4) Basophils # (Auto) 0.0 TH/MM3 (0-0.2) 0.0 TH/MM3 (0-0.2) CBC Comment DIFF FINAL DIFF FINAL Differential Comment Blood Urea Nitrogen 30 MG/DL (7-18) 31 MG/DL (7-18) Creatinine 1.03 MG/DL (0.50-1.00) 1.04 MG/DL (0.50-1.00) Random Glucose 195 MG/DL (74-106) 177 MG/DL (74-106) Calcium Level 8.6 MG/DL (8.5-10.1) 8.1 MG/DL (8.5-10.1) Sodium Level 142 MEQ/L (136-145) 141 MEQ/L (136-145) Potassium Level 3.9 MEQ/L (3.5-5.1) 3.9 MEQ/L (3.5-5.1) Chloride Level 108 MEQ/L (98-107) 107 MEQ/L (98-107) Carbon Dioxide Level 24.0 MEQ/L (21.0-32.0) 26.3 MEQ/L (21.0-32.0) Anion Gap 10 MEQ/L (5-15) 8 MEQ/L (5-15) Estimat Glomerular Filtration Rate 53 ML/MIN (>89) 53 ML/MIN (>89) . Result Diagram: 05/21/17 0613 05/21/17 0613 Imaging Last 72 hours Impressions Abdomen Ultrasound 05/21/17 0000 Signed Impressions: Service Date/Time: May 07:59 - CONCLUSION: Insufficient volume for ultrasound guided percutaneous drainage. Can reassess in 24 hours. Jim Harvey MD . Procedures 05/19/2017: CT-guided biopsy next line. . Assessment and Plan Disease Oriented Problem List: (1) Pre-diabetes (2) S/P cholecystectomy (3) S/P hernia repair (4) Ovarian mass Symptom Scale: (1) Debility 0-10 Scale: Unable to quantify (2) Pain 0-10 Scale: Unable to quantify (3) Nausea and vomiting 0-10 Scale: Unable to quantify (4) Dyspnea Pertinent Non-Medical Issues Psychosocial:Patient is originally from [place], [place]. She was , but her approximately 30+ years ago from complications related to either the liver or the lungs. The patient had 2 sisters. Her twin sister in her 40s from cervical cancer; she is reportedly estranged from another sister whose last known address was in [place]. Patient has a daughter (Mary) and a son (Damon). Her son lives in [place], and her daughter lives locally. The patient's daughter states her mother was always working when she was growing up, trying to support the family. 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 The patient currently lives alone with her cat, Dante. Spiritual: Baptism olesya Legal: Per [place] statutes, in the absence of written advanced directives healthcare proxy decision-making falls to the patient's 2 adult children. Ethical issues impacting care: No known ethical issues impacting care at this time. . Important Contacts Mary Edwards, daughter: [phone] . Prognosis Patient is a 67-year-old female recently diagnosed with an ovarian and uterine mass suspicious for carcinoma, pulmonary metastasis and carcinomatosis status post CT-guided biopsy today 05/19/2017. Possible treatment options pending biopsy results; prognosis guarded at this time. . Code Status: Full Code Plan * FULL CODE * Decision-making: Patient shows insight and judgment related to her current medical conditions but is currently to during decision-making to her daughter. HCS designation form completed today 05/21/2017 designating the patient's daughter (Mary Edwards) as the healthcare surrogate decision maker and son ( Damon) as the alternate. * Community DNR completed on 05/21/17 after discussion with patient at which time she confirmed that in the event of cardio-pulmonary arrest she would want to be allowed to pass peacefully and naturally without aggressive interventions. Today, the patient's daughter has rescinded the community DNR and requests CODE STATUS be changed to FULL CODE. She states her brother lives in [place] and she needs to include him on some of these decisions. The patient has chosen to allow her daughter to make these changes. CODE STATUS change to FULL CODE- Nurse notified of change. * Symptom management - pain: Patient reports ongoing intermittent abdominal pain ; she is unable to identify any exacerbating factors. Patient was unable to describe pain and when asked to rate pain on a scale of 0-10 she replied "I can handle it." Abdomen is distended and tender to palpation. PRN Morphine and [facility] but have not been administered in the past 24 hours. Paracentesis was ordered however there was insufficient fluid to drain. Current orders for PRN [facility] and IV morphine as needed for pain. * Symptom management - dyspnea: She appears to be in moderate respiratory distress although she denies feeling short of breath. Patient intermittently using PRN oxygen, was given saturations stable. = CTA on 05/17/2017 was negative for PE however multifocal metastasis of pulmonary nodule and pulmonary adenopathy is noted. = DuoNebs are available q4 hours PRN for shortness of breath and to maintain oxygen saturation above 92%. 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 Patient denies nausea and vomiting on exam, frequent belching. She has had no vomiting since admission. PRN Zofran is available q6 hours but none has been administered over the past 24 hours. * Symptom management -debility: Patient is extremely weak requiring maximum assist with physical therapy. She states she ambulated approximately 10 feet from the bed to the recliner with 2 person assist. Plan for short term placement at an SNF; daughter has selected [facility] as their first choice and [facility] as their alternate choice. * Palliative care will continue to monitor patient throughout this hospitalization to establish trust, assist with symptom management and clarification of medical treatment goals. . Attestation To help prompt me to consider important information that might be impacting today's encounter and assessment, information from prior notes written by myself or my colleagues may have been "brought forward" into today's note. My signature on this note, however, is an attestation that I personally performed the exam, history, and/or decision-making noted today, and, unless otherwise indicated, the interactions with patient, family, and staff as well as the review of records all occurred today. I also attest that the listed assessment and stated plan reflect my best clinical judgment today based on the combination of historical information, prior notes, and today's exam/ interactions. When time spent is documented, it refers only to time spent today by the signer, or if indicated, combined time spent today by collaborating physician/nurse practitioner. . Juliana Heredia May 22, 2017 16:57
[2017-05-23] VITALS (8 sets, daily range): BP systolic 117–144; BP diastolic 67–88; PULSE 87–106; RESP 14–20; TEMP 97.5–98.5; O2SAT 95–98
[2017-05-23] MEDS: METOPROLOL TARTRATE 50 MG TAB PO SCH ×3 (05:05→21:16)
--- NOTE | 2017-05-23 09:16 | HHI.PR ---
Subjective Remarks In bed appears in nad however sleepy . No abdominal pain. Had a normal bowel movement yesterday. No vaginal bleeding. Denies chest pain or sob. No n/v/d/ c. Objective Vitals Vital Signs Date Time Temp Pulse Resp B/P (MAP) Pulse Ox O2 Delivery O2 Flow Rate FiO2 05/23/17 05:00 98.5 104 20 141/88 (105) 95 05/23/17 00:37 98.5 88 18 136/76 (96) 96 05/22/17 21:55 98 Nasal Cannula 2.00 05/22/17 20:00 97.8 103 20 143/91 (108) 98 05/22/17 20:00 93 05/22/17 19:02 97.0 96 18 135/72 (93) 96 05/22/17 12:28 97.8 100 16 120/64 (82) 94 05/22/17 11:10 Room Air I/O 05/22/17 05/22/17 05/22/17 05/23/17 05/23/17 05/23/17 07:00 15:00 23:00 07:00 15:00 23:00 Intake Total 200 ml 590 ml 330 ml Balance 200 ml 590 ml 330 ml Intake Oral 200 ml 590 ml 330 ml # Voids 2 3 2 # Bowel Movements 1 1 1 Result Diagram: 05/21/1713 05/21/1713 Imaging Last Impressions Abdomen Ultrasound 05/21/17 0000 Signed Impressions: Service Date/Time: May 07:59 - CONCLUSION: Insufficient volume for ultrasound guided percutaneous drainage. Can reassess in 24 hours. Jim Harvey MD Biopsy CT 05/19/17 0000 Signed Impressions: Service Date/Time: Friday, May 19, 2017 14:29 - CONCLUSION: Uncomplicated CT guided biopsy. Russell Faust MD CT Angiography 05/17/17 0000 Signed Impressions: Service Date/Time: Wednesday, May 17, 2017 08:45 - CONCLUSION: 1. No evidence for pulmonary embolism. 2. Moderate bilateral pleural effusions with bibasilar atelectasis greater on the right. 3. Multifocal metastatic pulmonary nodules and metastatic adenopathy. Noe Agustin MD Chest X-Ray 05/16/17 1405 Signed Impressions: Service Date/Time: Tuesday, May 16, 2017 14:55 - CONCLUSION: 1. No gross free air. 2. Small loculated right-sided pleural effusion with patchy airspace disease in the right lower lung zone and associative volume loss. Milo Matute MD Abdomen/Pelvis CT 05/16/17 1405 Signed Impressions: Service Date/Time: Tuesday, May 16, 2017 17:09 - CONCLUSION: 1. Examination is abnormal. There are 2 dominant masses in the pelvis. A large multicystic left adnexal mass measuring up to 13.3 x 13.5 cm and an apparent heterogeneous myometrial uterine mass measuring 10.3 x 9.2 cm. There is extensive mesenteric carcinomatosis, ascites, mild retroperitoneal adenopathy, soft tissue studding of the liver surface and bilateral pulmonary nodules at the lung bases. Findings are consistent with extensive metastatic disease in a pattern most consistent with ovarian carcinoma. However, differential considerations include uterine malignancy given the large uterine mass with apparent mass effect on the distal right ureter. 2. Moderate right hydronephrosis and hydroureter secondary to mass effect from right pelvic mass 3. Small left and [id number] right pleural effusions. Milo Matute MD Objective Remarks GENERAL: Chronically ill appearing CF patient. SKIN: Warm and dry. HEAD: Normocephalic. EYES: No scleral icterus. No injection or drainage. NECK: Supple, trachea midline. No JVD or lymphadenopathy. CARDIOVASCULAR: Regular rate and rhythm without murmurs, gallops, or rubs. RESPIRATORY: Breath sounds diminished at bases, no wheezing, on RA. GASTROINTESTINAL: Abdomen massive, protuberant, mildly distended, mildly ttp periumbilical EXTREMITIES: 1+ pedal edema NEUROLOGICAL: Awake, alert, and oriented x 3. Non-focal. 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 rn gynecology/onc consultation - s/p CT guided pelvic biopsy 05/19 -Patient initially wanted hospice but daughter wanted her to pursue aggressive care -Palliative care following - I discussed with tank driver today - she will talk with daughter this afternoon -Discussed the patient with Dr. Contreras yesterday. Pathology may return today. No further inpatient workup as planned and patient may follow-up in his office as outpatient. -Abdominal paracentesis was ordered however there was not enough fluid to drain. -Patient does decide on chemotherapy could consider doing port prior to discharge, however this may also be done in the outpatient setting. SIRS suspect secondary to pelvic inflammation/ abnormality in bilateral pleural effusions - Tachycardia, WBC 12 - resolved. -BC neg x 3 days, WBC normal -no evidence of pna or uti - Pain management IV morphine when necessary - Zofran For nausea Respiratory distress -CTA negative for PE however positive for multifocal metastasis of pulmonary nodule and pulmonary adenopathy - DuoNeb when necessary and maintain oxygen saturation above 92% -moderate b/l pleural effusions -if dyspnea worsens can offer thoracentesis -currently asymptomatic -S/p 40 mg IV Lasix x 1 05/19 Borderline diabetes, hyperglycemia - Insulin sliding scale - Monitor Accu-Cheks - hemoglobin A1c 10 -cont levemir 5 units SQ HS HTN -cont metoprolol BID DVT proph - SCDs Discharge Planning Patient is quite weak requiring max assist with physical therapy. May require alf facility. Pt prefers to go home with daughter. DC today to SNF when arrangements done , to f/u as OP with Dr Contreras in his office. Problem Qualifiers (1) Abdominal pain: Qualified Codes: R10.84 - Generalized abdominal pain (2) Metastasis: Tonya Malone MD May 23, 2017 09:16
[2017-05-23] MEDS: PANTOPRAZOLE SOD 20 MG DELAYED RELEASE TAB PO SCH (09:18)
[2017-05-23] MEDS: INSULIN ASPART SUPPLEMENTAL SCALE SQ SCH ×4 (09:19→21:00)
--- NOTE | 2017-05-23 09:28 | HHI.DS ---
Discharge Summary Admission Date May 16, 2017 at 18:45 Discharge Date: May 24, 2017 Admitting Diagnosis ovarian mass/severe abdominal pain/right sided hydronephrosis (1) Abdominal pain ICD Code: R10.9 - Unspecified abdominal pain Status: Resolved (2) Ovarian mass ICD Code: N83.9 - Noninflammatory disorder of ovary, fallopian tube and broad ligament, unspecified Status: Acute (3) Metastasis ICD Code: C79.9 - Secondary malignant neoplasm of unspecified site Procedures s/p CT guided pelvic biopsy 05/19 Brief History - From Admission Patient is a 67-year-old female with primary medical history of borderline diabetes, previous cholecystectomy, previous hernia repair who came in to the hospital secondary to abdominal pain, nausea, vomiting 1 week. Patient states she is very weak unable to get up. She was feeling nauseous for about a week and noticed that her abdomen is growing bigger. States that she did not notice vomiting blood but the EMS reported to her that they saw some blood tinged emesis. Patient states she's been having on and off diarrhea. Reports intermittent shortness of breath and dyspnea with exertion and even with conversation. Reports pain on her buttocks secondary to positioning otherwise, continues to have nausea. Denies chest pain, dizziness, headaches. Denies fevers, chills. Denies dysuria. CBC/BMP: 05/21/17 0613 05/21/17 0613 Significant Findings Laboratory Tests Test 05/21/17 06:13 Neutrophils (%) (Auto) 73.7 % (16.0-70.0) Monocytes (%) (Auto) 10.6 % (0.0-8.0) Monocytes # (Auto) 1.0 TH/MM3 (0-0.9) Blood Urea Nitrogen 31 MG/DL (7-18) Creatinine 1.04 MG/DL (0.50-1.00) Random Glucose 177 MG/DL (74-106) Calcium Level 8.1 MG/DL (8.5-10.1) Estimat Glomerular Filtration Rate 53 ML/MIN (>89) Imaging Last Impressions Abdomen Ultrasound 05/21/17 0000 Signed Impressions: Service Date/Time: May 07:59 - CONCLUSION: Insufficient volume for ultrasound guided percutaneous drainage. Can reassess in 24 hours. Jim Harvey MD Biopsy CT 05/19/17 0000 Signed Impressions: Service Date/Time: Friday, May 19, 2017 14:29 - CONCLUSION: Uncomplicated CT guided biopsy. Russell Faust MD CT Angiography 05/17/17 0000 Signed Impressions: Service Date/Time: Wednesday, May 17, 2017 08:45 - CONCLUSION: 1. No evidence for pulmonary embolism. 2. Moderate bilateral pleural effusions with bibasilar atelectasis greater on the right. 3. Multifocal metastatic pulmonary nodules and metastatic adenopathy. Noe Agustin MD Chest X-Ray 05/16/171404 Signed Impressions: Service Date/Time: Tuesday, May 16, 2017 14:55 - CONCLUSION: 1. No gross free air. 2. Small loculated right-sided pleural effusion with patchy airspace disease in the right lower lung zone and associative volume loss. Milo Matute MD Abdomen/Pelvis CT 05/16/17 1405 Signed Impressions: Service Date/Time: Tuesday, May 16, 2017 17:09 - CONCLUSION: 1. Examination is abnormal. There are 2 dominant masses in the pelvis. A large multicystic left adnexal mass measuring up to 13.3 x 13.5 cm and an apparent heterogeneous myometrial uterine mass measuring 10.3 x 9.2 cm. There is extensive mesenteric carcinomatosis, ascites, mild retroperitoneal adenopathy, soft tissue studding of the liver surface and bilateral pulmonary nodules at the lung bases. Findings are consistent with extensive metastatic disease in a pattern most consistent with ovarian carcinoma. However, differential considerations include uterine malignancy given the large uterine mass with apparent mass effect on the distal right ureter. 2. Moderate right hydronephrosis and hydroureter secondary to mass effect from right pelvic mass 3. Small left and [id number]-[id number] right pleural effusions. Milo Matute MD PE at Discharge GENERAL: Chronically ill appearing CF patient. SKIN: Warm and dry. HEAD: Normocephalic. EYES: No scleral icterus. No injection or drainage. NECK: Supple, trachea midline. No JVD or lymphadenopathy. CARDIOVASCULAR: Regular rate and rhythm without murmurs, gallops, or rubs. RESPIRATORY: Breath sounds diminished at bases, no wheezing, on RA. GASTROINTESTINAL: Abdomen massive, protuberant, mildly distended, mildly ttp periumbilical EXTREMITIES: 1+ pedal edema NEUROLOGICAL: Awake, alert, and oriented x 3. Non-focal. Hospital Course 67-year-old female with Ovarian and uterine mass, suspected carcinoma - pulmonary metastases and carcinomatosis s/p CT guided pelvic biopsy 05/19, pending path result. Dr Contreras ff. Patient to follow up as OP with Dr Contreras for results and further management Abdominal paracentesis was ordered however there was not enough fluid to drain. Patient does decide on chemotherapy could consider doing port prior to discharge , however this may also be done in the outpatient setting. SIRS suspect secondary to pelvic inflammation/ abnormality in bilateral pleural effusions - Tachycardia, WBC 12 - resolved. BC neg WBC normal. No evidence of pna or uti Respiratory distress. CTA negative for PE however positive for multifocal metastasis of pulmonary nodule and pulmonary adenopathy DuoNeb when necessary and maintain oxygen saturation above 92%. Moderate b/l pleural effusions improved with Lasix Diabetes, hyperglycemia hemoglobin A1c 10. cont levemir 5 units SQ HS Patient is quite weak requiring max assist with physical therapy. DC to SNF , to f/u as OP with Dr Contreras in his office in 1 week and with PCP. Pt Condition on Discharge: Stable Discharge Disposition: Discharge to SNF Discharge Time: > 30 minutes Discharge Instructions DIET: Follow Instructions for: Heart Healthy Diet, Diabetic Diet Activities you can perform: Regular-No Restrictions Follow up Referrals: Oncology - 1 Week with nichelle PCP Follow-up - 2-3 Days New Medications: Blood Glucose Monitoring W/Device (Glucocom Blood Glucose Mo W/Device) 1 Kit Kit KIT .ROUTE DIRECTED for Blood Sugar Management, #1 Glucocom Test Strips (Glucocom Test Strips) 1 Kimberly Kimberly EA .ROUTE DIRECTED for Blood Sugar Management, #1 Hydrocodone-Acetaminophen ([place]) 5 Mg-325 Mg Tab 1 TAB PO Q4H PRN for PAIN, #30 TAB 0 Refills Insulin Detemir Inj (Levemir Inj) 1,000 unit/ 10 ML Vial 5 UNITS SQ BID for Blood Sugar Management, #60 VIAL 0 Refills Do not mix with any other Insulin. Insulin Syringe/U-100/31G X 5/16" 1 ml (Insulin Syringe/U-100/31G X 10/28" 1 ml) 31 Gauge X 10/28" Mis EA .ROUTE DIRECTED for Blood Sugar Management, #1 0 Refills Lancets (Lancets) 1 Mis Mis EA .ROUTE DIRECTED for Blood Sugar Management, #1 0 Refills Parenteral Therapy Supplies (Sharpsafety Sharps Contai) 1 Mis Mis EA .ROUTE DIRECTED, #1 0 Refills Metoprolol Tartrate (Lopressor) 50 Mg Tab 50 MG PO Q8HR for Blood Pressure Management, #90 TAB Pantoprazole (Protonix) 20 Mg Tab 20 MG PO DAILY for Dyspepsia, #30 TAB Continued Medications: Miscellaneous (No Current Meds) Misc 0 Refills Discontinued Medications: Naproxen Sodium (Anaprox Ds) 550 Mg Tab 550 MG PO BID, #20 0 Refills Trimethoprim/Sulfamethoxazole (Bactrim Ds) Tab 1 TAB PO BID, #20 0 Refills Tonya Malone MD May 23, 2017 09:28
[2017-05-23] MEDS ORDERED: METO-309 PO (09:30)
[2017-05-23] MEDS ORDERED: NORC5TAB PO (09:30)
[2017-05-23] MEDS ORDERED: PANT20 PO (09:30)
[2017-05-23] MEDS ORDERED: GLUCTES12 (11:50)
[2017-05-23] MEDS ORDERED: LEVEMIR SQ (11:50)
[2017-05-23] MEDS ORDERED: INSU1MIS15 (11:50)
[2017-05-23] MEDS ORDERED: GLUCKIT15 (11:50)
[2017-05-23] MEDS ORDERED: BIOM30MI (11:50)
[2017-05-23] MEDS ORDERED: LANCETS1 MI1 (11:50)
--- NOTE | 2017-05-23 12:38 | HHI.PR ---
Subjective Remarks With diarrhea 7 x today No fever or chills. No abd pain . No n/v. Objective Vitals Vital Signs Date Time Temp Pulse Resp B/P (MAP) Pulse Ox O2 Delivery O2 Flow Rate FiO2 05/23/17 11:35 97.5 98 18 142/77 (98) 05/23/17 09:09 97.5 88 16 117/67 (84) 97 05/23/17 05:00 98.5 104 20 141/88 (105) 95 05/23/17 00:37 98.5 88 18 136/76 (96) 96 05/22/17 21:55 98 Nasal Cannula 2.00 05/22/17 20:00 97.8 103 20 143/91 (108) 98 05/22/17 20:00 93 05/22/17 19:02 97.0 96 18 135/72 (93) 96 I/O 05/22/17 05/22/17 05/22/17 05/23/17 05/23/17 05/23/17 07:00 15:00 23:00 07:00 15:00 23:00 Intake Total 200 ml 590 ml 330 ml Balance 200 ml 590 ml 330 ml Intake Oral 200 ml 590 ml 330 ml # Voids 2 3 2 # Bowel Movements 1 1 1 Result Diagram: 05/21/1713 05/21/17 0613 Imaging Last Impressions Abdomen Ultrasound 05/21/17 0000 Signed Impressions: Service Date/Time: May 07:59 - CONCLUSION: Insufficient volume for ultrasound guided percutaneous drainage. Can reassess in 24 hours. Jim Harvey MD Biopsy CT 05/19/17 0000 Signed Impressions: Service Date/Time: Friday, May 19, 2017 14:29 - CONCLUSION: Uncomplicated CT guided biopsy. Russell Faust MD CT Angiography 05/17/17 0000 Signed Impressions: Service Date/Time: Wednesday, May 17, 2017 08:45 - CONCLUSION: 1. No evidence for pulmonary embolism. 2. Moderate bilateral pleural effusions with bibasilar atelectasis greater on the right. 3. Multifocal metastatic pulmonary nodules and metastatic adenopathy. Noe Agustin MD Chest X-Ray 05/16/17 1405 Signed Impressions: Service Date/Time: Tuesday, May 16, 2017 14:55 - CONCLUSION: 1. No gross free air. 2. Small loculated right-sided pleural effusion with patchy airspace disease in the right lower lung zone and associative volume loss. Milo Matute MD Abdomen/Pelvis CT 05/16/17 1405 Signed Impressions: Service Date/Time: Tuesday, May 16, 2017 17:09 - CONCLUSION: 1. Examination is abnormal. There are 2 dominant masses in the pelvis. A large multicystic left adnexal mass measuring up to 13.3 x 13.5 cm and an apparent heterogeneous myometrial uterine mass measuring 10.3 x 9.2 cm. There is extensive mesenteric carcinomatosis, ascites, mild retroperitoneal adenopathy, soft tissue studding of the liver surface and bilateral pulmonary nodules at the lung bases. Findings are consistent with extensive metastatic disease in a pattern most consistent with ovarian carcinoma. However, differential considerations include uterine malignancy given the large uterine mass with apparent mass effect on the distal right ureter. 2. Moderate right hydronephrosis and hydroureter secondary to mass effect from right pelvic mass 3. Small left and xtdet-xv-kmjizrer right pleural effusions. Milo Matute MD Objective Remarks GENERAL: Chronically ill appearing CF patient. SKIN: Warm and dry. HEAD: Normocephalic. EYES: No scleral icterus. No injection or drainage. NECK: Supple, trachea midline. No JVD or lymphadenopathy. CARDIOVASCULAR: Regular rate and rhythm without murmurs, gallops, or rubs. RESPIRATORY: Breath sounds diminished at bases, no wheezing, on RA. GASTROINTESTINAL: Abdomen massive, protuberant, mildly distended, mildly ttp periumbilical EXTREMITIES: 1+ pedal edema NEUROLOGICAL: Awake, alert, and oriented x 3. Non-focal. Procedures s/p CT guided pelvic biopsy 05/19 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 counselor dormitory/onc consultation - s/p CT guided pelvic biopsy 05/19 -Patient initially wanted hospice but daughter wanted her to pursue aggressive care -Palliative care following - I discussed with speech language pathology assistant today - she will talk with daughter this afternoon -Discussed the patient with Dr. Contreras yesterday. Pathology may return today. No further inpatient workup as planned and patient may follow-up in his office as outpatient. -Abdominal paracentesis was ordered however there was not enough fluid to drain. -Patient does decide on chemotherapy could consider doing port prior to discharge, however this may also be done in the outpatient setting. SIRS suspect secondary to pelvic inflammation/ abnormality in bilateral pleural effusions - Tachycardia, WBC 12 - resolved. -BC neg x 3 days, WBC normal -no evidence of pna or uti - Pain management IV morphine when necessary - Zofran For nausea Diarrhea: check fpr C diff., add Imodium and probiotic Respiratory distress -CTA negative for PE however positive for multifocal metastasis of pulmonary nodule and pulmonary adenopathy - DuoNeb when necessary and maintain oxygen saturation above 92% -moderate b/l pleural effusions -if dyspnea worsens can offer thoracentesis -currently asymptomatic -S/p 40 mg IV Lasix x 1 05/19 Borderline diabetes, hyperglycemia - Insulin sliding scale - Monitor Accu-Cheks - hemoglobin A1c 10 -cont levemir 5 units SQ HS HTN -cont metoprolol BID DVT proph - SCDs Discharge Planning Patient is quite weak requiring max assist with physical therapy. May require intermediate facility. Pt prefers to go home with daughter. DC to SNF when improves and arrangements done , to f/u as OP with Dr Contreras in his office. Problem Qualifiers (1) Abdominal pain: Qualified Codes: R10.84 - Generalized abdominal pain (2) Metastasis: Tonya Malone MD May 23, 2017 12:38
[2017-05-23] MEDS ORDERED: LOPERAMIDE HCL 2 MG CAP PO ONE (12:45)
[2017-05-23] MEDS: LACTOBACILLUS ACIDOPHILUS TAB PO SCH ×2 (15:18→17:50)
[2017-05-23] MEDS ORDERED: LOPERAMIDE HCL 2 MG CAP PO PRN (18:00)
[2017-05-23 20:40] LABS: C. DIFF EPI 027 PRESUMPTIVE NEGATIVE (NEGATIVE)
[2017-05-24] VITALS: BP 142/84; PULSE 107; RESP 20; TEMP 97.6; O2SAT 94
[2017-05-24 04:00] VITALS: BP 138/82; PULSE 109; RESP 20; TEMP 98.2; O2SAT 98
[2017-05-24] MEDS: MORPHINE SULFATE 4 MG/ML INJ IV PUSH PRN (04:10)
[2017-05-24] MEDS: METOPROLOL TARTRATE 50 MG TAB PO SCH (06:00)
[2017-05-24] MEDS: INSULIN ASPART SUPPLEMENTAL SCALE SQ SCH (08:00)
[2017-05-24] MEDS: LACTOBACILLUS ACIDOPHILUS TAB PO SCH (08:56)
[2017-05-24] MEDS: PANTOPRAZOLE SOD 20 MG DELAYED RELEASE TAB PO SCH (08:56)
[2017-05-24] MEDS: ONDANSETRON HCL 4 MG/2 ML VIAL IVP PRN (09:00)
[2017-05-24 09:03] VITALS: BP 131/46; PULSE 108; RESP 18; TEMP 97.7; O2SAT 98
--- NOTE | 2017-05-24 09:37 | HHI.PR ---
Subjective Remarks Feels better. No diarrhea. No fever or chills. Feels tired. Eating fairly well. Objective Vitals Vital Signs Date Time Temp Pulse Resp B/P (MAP) Pulse Ox O2 Delivery O2 Flow Rate FiO2 05/24/17 09:03 97.7 108 18 131/46 (74) 98 05/24/17 04:15 20 05/24/17 04:00 Nasal Cannula 2.00 05/24/17 04:00 98.2 109 20 138/82 (100) 98 05/24/17 00:00 Nasal Cannula 2.00 05/24/17 00:00 97.6 107 20 142/84 (103) 94 05/23/17 20:00 97.7 98 18 121/74 (90) 97 05/23/17 20:00 97 05/23/17 20:00 Nasal Cannula 2.00 05/23/17 17:55 98 Nasal Cannula 1.00 05/23/17 15:26 97.6 106 14 144/80 (101) 98 05/23/17 13:27 Nasal Cannula 1.00 05/23/17 11:35 97.5 98 18 142/77 (98) I/O 05/23/17 05/23/17 05/23/17 05/24/17 05/24/17 05/24/17 07:00 15:00 23:00 07:00 15:00 23:00 Intake Total 330 ml 240 ml 460 ml Balance 330 ml 240 ml 460 ml Intake Oral 330 ml 240 ml 460 ml # Voids 2 4 4 # Bowel Movements 1 8 1 Result Diagram: 05/21/1713 05/21/1713 Imaging Last Impressions Abdomen Ultrasound 05/21/17 0000 Signed Impressions: Service Date/Time: May 07:59 - CONCLUSION: Insufficient volume for ultrasound guided percutaneous drainage. Can reassess in 24 hours. Jim Harvey MD Biopsy CT 05/19/17 0000 Signed Impressions: Service Date/Time: Friday, May 19, 2017 14:29 - CONCLUSION: Uncomplicated CT guided biopsy. Russell Faust MD CT Angiography 05/17/17 0000 Signed Impressions: Service Date/Time: Wednesday, May 17, 2017 08:45 - CONCLUSION: 1. No evidence for pulmonary embolism. 2. Moderate bilateral pleural effusions with bibasilar atelectasis greater on the right. 3. Multifocal metastatic pulmonary nodules and metastatic adenopathy. Noe Agustin MD Chest X-Ray 05/16/171404 Signed Impressions: Service Date/Time: Tuesday, May 16, 2017 14:55 - CONCLUSION: 1. No gross free air. 2. Small loculated right-sided pleural effusion with patchy airspace disease in the right lower lung zone and associative volume loss. Milo Matute MD Abdomen/Pelvis CT 05/16/171404 Signed Impressions: Service Date/Time: Tuesday, May 16, 2017 17:09 - CONCLUSION: 1. Examination is abnormal. There are 2 dominant masses in the pelvis. A large multicystic left adnexal mass measuring up to 13.3 x 13.5 cm and an apparent heterogeneous myometrial uterine mass measuring 10.3 x 9.2 cm. There is extensive mesenteric carcinomatosis, ascites, mild retroperitoneal adenopathy, soft tissue studding of the liver surface and bilateral pulmonary nodules at the lung bases. Findings are consistent with extensive metastatic disease in a pattern most consistent with ovarian carcinoma. However, differential considerations include uterine malignancy given the large uterine mass with apparent mass effect on the distal right ureter. 2. Moderate right hydronephrosis and hydroureter secondary to mass effect from right pelvic mass 3. Small left and nizgf-ay-pfcmmkue right pleural effusions. Milo Matute MD Objective Remarks GENERAL: Chronically ill appearing CF patient. SKIN: Warm and dry. HEAD: Normocephalic. EYES: No scleral icterus. No injection or drainage. NECK: Supple, trachea midline. No JVD or lymphadenopathy. CARDIOVASCULAR: Regular rate and rhythm without murmurs, gallops, or rubs. RESPIRATORY: Breath sounds diminished at bases, no wheezing, on RA. GASTROINTESTINAL: Abdomen massive, protuberant, mildly distended, mildly ttp periumbilical EXTREMITIES: 1+ pedal edema NEUROLOGICAL: Awake, alert, and oriented x 3. Non-focal. Procedures s/p CT guided pelvic biopsy 05/19 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 recruiter manager/onc consultation - s/p CT guided pelvic biopsy 05/19 -Patient initially wanted hospice but daughter wanted her to pursue aggressive care -Palliative care following - I discussed with rollway man today - she will talk with daughter this afternoon -Discussed the patient with Dr. Contreras yesterday. Pathology may return today. No further inpatient workup as planned and patient may follow-up in his office as outpatient. -Abdominal paracentesis was ordered however there was not enough fluid to drain. -Patient does decide on chemotherapy could consider doing port prior to discharge, however this may also be done in the outpatient setting. SIRS suspect secondary to pelvic inflammation/ abnormality in bilateral pleural effusions - Tachycardia, WBC 12 - resolved. -BC neg x 3 days, WBC normal -no evidence of pna or uti - Pain management IV morphine when necessary - Zofran For nausea Diarrhea: check fpr C diff., add Imodium and probiotic Respiratory distress -CTA negative for PE however positive for multifocal metastasis of pulmonary nodule and pulmonary adenopathy - DuoNeb when necessary and maintain oxygen saturation above 92% -moderate b/l pleural effusions -if dyspnea worsens can offer thoracentesis -currently asymptomatic -S/p 40 mg IV Lasix x 1 05/19 Borderline diabetes, hyperglycemia - Insulin sliding scale - Monitor Accu-Cheks - hemoglobin A1c 10 -cont levemir 5 units SQ HS HTN -cont metoprolol BID DVT proph - SCDs Discharge Planning Patient is quite weak requiring max assist with physical therapy. May require [facility] facility. Pt prefers to go home with daughter. DC to SNF when improves and arrangements done , to f/u as OP with Dr Contreras in his office. Problem Qualifiers (1) Abdominal pain: Qualified Codes: R10.84 - Generalized abdominal pain (2) Metastasis: Tonya Malone MD May 24, 2017 09:37
== END 2017-05-24 11:59 | DRG 746 ==
LOC: NEPC 13:48 → NEDA 18:04 → OBSVTOIN 18:45 → NEPFCDU 20:55 → HCIN 05-17 11:06
PROVIDERS: ADMIT Hospitalist; ATTEND Hospitalist
PROC: 0WBN3ZX Excision of Female Perineum, Percutaneous Approach, Diagnostic (ICD-10-PCS; principal; 2017-05-19)
DX: C56.2 Malignant neoplasm of left ovary (principal); R18.8 Other ascites; J90 Pleural effusion, not elsewhere classified; C78.01 Secondary malignant neoplasm of right lung; C77.2 Secondary and unspecified malignant neoplasm of intra-abdominal lymph nodes; R65.10 Systemic inflammatory response syndrome (SIRS) of non-infectious origin without acute organ dysfunction; C78.02 Secondary malignant neoplasm of left lung; C77.1 Secondary and unspecified malignant neoplasm of intrathoracic lymph nodes; C78.6 Secondary malignant neoplasm of retroperitoneum and peritoneum; C78.7 Secondary malignant neoplasm of liver and intrahepatic bile duct; N13.30 Unspecified hydronephrosis; E11.65 Type 2 diabetes mellitus with hyperglycemia; R11.2 Nausea with vomiting, unspecified; R59.0 Localized enlarged lymph nodes; R63.0 Anorexia; R06.03 Acute respiratory distress; I10 Essential (primary) hypertension; Z66 Do not resuscitate; Z68.35 Body mass index [BMI] 35.0-35.9, adult; Z80.49 Family history of malignant neoplasm of other genital organs; Z83.3 Family history of diabetes mellitus
CPT/HCPCS: 49180; 71010; 71275; 74177; 76705; 77012; 80048; 80053; 81001; 82105; 82378; 82948; 83036; 83605; 83615; 83690; 84443; 84702; 85025; 85610; 85730; 86300; 86304; 87040; 87493; 88305; 88307; 88341; 88342; 93005; 94640; 94664; J1644; J1815; J1940; J2060; J2270; J2405; J3010; J7030; J7040; Q9967

== ENCOUNTER 2017-05-30 17:53 | Inpatient (IN) | payer MEDICARE ==
[~2017-05-30] VITALS: Ht 165.1 cm; Wt 93.0 kg
[~2017-05-30 17:53] MED LIST changes: +BIOM30MI; +GLUCKIT15; +GLUCTES12; +INSU1MIS15; +LANCETS1 MI1; +LEVEMIR SQ; +METO-309 PO; -NAPR550 PO; +NORC5TAB PO; +PANT20 PO; -SULF1TAB47 PO
[2017-05-30] MEDS ORDERED: PANTOPRAZOLE INJ 80 MG in SODIUM CHLORIDE 0.9% INJ 35 ML IV ONE (18:25)
[2017-05-30] MEDS ORDERED: SODIUM CHLOR 0.9% 1000 ML INJ 1,000 ML IV SCH (18:25)
[2017-05-30] MEDS ORDERED: SODIUM CHLORIDE 0.9% FLUSH 10 ML FLUSH IVF PRN (18:30)
[2017-05-30] MEDS ORDERED: METOCLOPRAMIDE HCL 10 MG/2 ML VIAL IV PUSH ONE (18:30)
--- NOTE | 2017-05-30 18:37 | PD ---
HPI Chief Complaint: vomiting; abdominal pain Time Seen by Provider: 18:16 Travel History International Travel<30 days: No Contact w/Intl Traveler<30days: No History of Present Illness HPI 67 year old female presents to the emergency department from [facility] for abdominal pain, vomiting. Patient reports vomiting dark emesis for approximately one week. She states the Zofran at the facility is not helping her. Patient states that Dr. Wood has seen her at the facility recommended surgery, she's not had this done yet. Patient was recently diagnosed metastatic ovarian carcinoma. Patient was discharged from the hospital on May 24, 2017. She reports increasing pain and vomiting since discharge. Patient reports associated weakness and shortness of breath. She denies any fevers or chills. Patient reports distended abdomen, current pain 7.5 out of 10 without radiation. No exacerbating or alleviating factors. Patient received normal saline 400 mL's and Zofran via EMS without improvement. Patient denies any chest pain. Patient also reports diarrhea. No blood in her stool or she knows. appears pale. Moderate to severe. PFSH Past Medical History Cancer: No Cardiovascular Problems: Yes Diminished Hearing: No Endocrine: No Genitourinary: No Musculoskeletal: No Neurologic: No Psychiatric: No Respiratory: No Past Surgical History Abdominal Surgery: Yes (hernia/gallbladder) Cholecystectomy: Yes Social History Alcohol Use: No Tobacco Use: No Substance Use: No Allergies-Medications (Allergen,Severity, Reaction): Coded Allergies: No Known Allergies (Verified Allergy, Mild, 05/30/17) Reported Meds & Prescriptions Reported Meds & Active Scripts Active Levemir Inj (Insulin Detemir) 1,000 unit/ 10 ML Vial 5 Units SQ BID Do not mix with any other Insulin. Sharpsafety Sharps Contai (Parenteral Therapy Supplies) 1 Mis Mis Ea .ROUTE DIRECTED Glucocom Test Strips (Blood Glucose Test Strips) 1 Kimberly Kimberly Ea .ROUTE DIRECTED Lancets 1 Mis Mis Ea .ROUTE DIRECTED Insulin Syringe/U-100/31G X 10/28" 1 ml 31 Gauge X 10/28" Mis Ea .ROUTE DIRECTED Glucocom Blood Glucose Mo W/Device (Device) 1 Kit Kit Kit .ROUTE DIRECTED Vida (Hydrocodone-Acetaminophen) 5 Mg-325 Mg Tab 1 Tab PO Q4H PRN Protonix (Pantoprazole Sodium) 20 Mg Tab 20 Mg PO DAILY Lopressor (Metoprolol Tartrate) 50 Mg Tab 50 Mg PO Q8HR Reported Zofran Odt (Ondansetron Odt) 4 Mg Tab 4 Mg SL Q8HR PRN Phenergan Inj (Promethazine HCl) 25 Mg/Ml Inj 25 Mg IM Q8HR Review of Systems Except as stated in HPI: all other systems reviewed are Neg Physical Exam Narrative GENERAL: Well-nourished, well-developed female patient, afebrile. SKIN: Focused skin assessment warm/dry. HEAD: Normocephalic. Atraumatic. EYES: No scleral icterus. No injection or drainage. NECK: Supple, trachea midline. No JVD or lymphadenopathy. CARDIOVASCULAR: Regular rate and rhythm without murmurs, gallops, or rubs. RESPIRATORY: Breath sounds equal bilaterally. No accessory muscle use. Lungs sounds are clear to auscultation. GASTROINTESTINAL: Abdomen distended, diffuse tenderness to palpation. MUSCULOSKELETAL: No cyanosis, or edema. BACK: Nontender without obvious deformity. No CVA tenderness. Data Data Last Documented VS Vital Signs Date Time Temp Pulse Resp B/P (MAP) Pulse Ox O2 Delivery O2 Flow Rate FiO2 05/30/17 19:15 97.6 120 18 153/76 (101) 98 Nasal Cannula 2.00 Orders Orders Complete Blood Count With Diff (05/30/17 18:25) Comprehensive Metabolic Panel (05/30/17 18:25) Lipase (05/30/17 18:25) Prothrombin Time / Inr (Pt) (05/30/17 18:25) Act Partial Throm Time (Ptt) (05/30/17 18:25) Urinalysis - C+S If Indicated (05/30/17 18:25) Chest, Single Ap (05/30/17 18:25) Ecg Monitoring (05/30/17 18:25) Iv Access Insert/Monitor (05/30/17 18:25) Oximetry (05/30/17 18:25) Sodium Chlor 0.9% 1000 Ml Inj (Ns 1000 M (05/30/17 18:25) Sodium Chloride 0.9% Flush (Ns Flush) (05/30/17 18:30) Sodium Chloride 0.9... W/Pantoprazole In (05/30/17 18:25) Sodium Chloride 0.9... W/Pantoprazole In (05/30/17 18:25) Type And Screen (05/30/17 18:25) Ct Abd/Pel W Iv Contrast(Rout) (05/30/17 ) Metoclopramide Inj (Reglan Inj) (05/30/17 18:30) Electrocardiogram (05/30/17 ) Ondansetron Inj (Zofran Inj) (05/30/17 20:00) Furosemide Inj (Lasix Inj) (05/30/17 20:30) Urinary Catheter Insert/Apply (05/30/17 20:29) Iohexol 350 Inj (Omnipaque 350 Inj) (05/30/17 20:47) Urine Culture (05/30/17 20:30) B-Type Natriuretic Peptide (05/30/17 21:16) Admit Order (Ed Use Only) (05/30/17 21:30) Labs Laboratory Tests Test 05/30/17 19:00 05/30/17 20:30 White Blood Count 13.8 TH/MM3 Red Blood Count 4.67 MIL/MM3 Hemoglobin 12.5 GM/DL Hematocrit 39.6 % Mean Corpuscular Volume 84.8 FL Mean Corpuscular Hemoglobin 26.8 PG Mean Corpuscular Hemoglobin Concent 31.6 % Red Cell Distribution Width 14.4 % Platelet Count 383 TH/MM3 Mean Platelet Volume 8.4 FL Neutrophils (%) (Auto) 90.0 % Lymphocytes (%) (Auto) 5.0 % Monocytes (%) (Auto) 4.9 % Eosinophils (%) (Auto) 0.0 % Basophils (%) (Auto) 0.1 % Neutrophils # (Auto) 12.4 TH/MM3 Lymphocytes # (Auto) 0.7 TH/MM3 Monocytes # (Auto) 0.7 TH/MM3 Eosinophils # (Auto) 0.0 TH/MM3 Basophils # (Auto) 0.0 TH/MM3 CBC Comment DIFF FINAL Differential Comment Prothrombin Time 11.5 SEC Prothromb Time International Ratio 1.1 RATIO Activated Partial Thromboplast Time 30.0 SEC Blood Urea Nitrogen 39 MG/DL Creatinine 1.00 MG/DL Random Glucose 160 MG/DL Total Protein 6.1 GM/DL Albumin 1.9 GM/DL Calcium Level 8.3 MG/DL Alkaline Phosphatase 136 U/L Aspartate Amino Transf (AST/SGOT) 22 U/L Alanine Aminotransferase (ALT/SGPT) 9 U/L Total Bilirubin 0.3 MG/DL Sodium Level 140 MEQ/L Potassium Level 5.1 MEQ/L Chloride Level 108 MEQ/L Carbon Dioxide Level 20.2 MEQ/L Anion Gap 12 MEQ/L Estimat Glomerular Filtration Rate 55 ML/MIN Lipase 101 U/L Urine Color YELLOW Urine Turbidity CLEAR Urine pH 5.5 Urine Specific [place] 1.017 Urine Protein TRACE mg/dL Urine Glucose (UA) NEG mg/dL Urine Ketones NEG mg/dL Urine Occult Blood NEG Urine Nitrite NEG Urine Bilirubin NEG Urine Urobilinogen LESS THAN 2.0 MG/DL Urine Leukocyte Esterase MOD Urine RBC 2 /hpf Urine WBC 12 /hpf Urine Bacteria RARE /hpf Urine Hyaline Casts 7 /lpf Urine Mucus FEW /lpf Microscopic Urinalysis Comment CULTURE INDICATED MDM Medical Decision Making Medical Screen Exam Complete: Yes Emergency Medical Condition: Yes Medical Record Reviewed: Yes Interpretation(s) chest x-ray - CONCLUSION: 1. Pulmonary edema pattern with bilateral effusions most characteristic of congestive heart failure. Differential Diagnosis Upper GI bleed versus lower GI bleed versus chronic abdominal pain versus metastatic ovarian cancer Narrative Course 67-year-old female presents to the emergency department for evaluation of worsening abdominal pain, nausea and vomiting. Patient has back emesis with her. This is tested and is positive for blood. Patient is pale. EKG, CBC, CMP , lipase, PTT, PT/INR, UA, chest x-ray are ordered and pending. Type and cross for 2 units of RBCs are ordered, no transfusion yet. Reglan 10 mg IV, Protonix 80 mg IV with Protonix drip are ordered and pending. CBC shows leukocytosis 13.8. CMP shows bicarbonate 20.2, BUN 39, glucose 160. Lipase is 101. Coags are unremarkable. UA shows 12 WBCs. Chest x-ray shows pulmonary edema pattern with bilateral effusions most characteristic of congestive heart failure. Patient was given Reglan 10 mg IV and another dose of Zofran 4 mg IV for intractable vomiting. Patient is given Lasix 40 mg for CHF. Patient will be admitted for CHF, intractable vomiting, abdominal pain. Dr. Fragoso accepted admission. Diagnosis Primary Impression: CHF (congestive heart failure) Qualified Codes: I50.9 - Heart failure, unspecified Additional Impressions: Intractable vomiting Qualified Codes: R11.2 - Nausea with vomiting, unspecified Abdominal pain Qualified Codes: R10.84 - Generalized abdominal pain Admitting Information Admitting Physician Requests: Admit Krista Mathias May 30, 2017 18:37
[2017-05-30 18:50] VITALS: BP 129/72; PULSE 131; RESP 23; TEMP 97.8; O2SAT 97
[2017-05-30 18:53] VITALS: BP 129/72; PULSE 116; RESP 24; TEMP 97.8; O2SAT 97; O2SAT 98
--- NOTE | 2017-05-30 19:13 | RADRPT ---
EXAM DATE/TIME: 05/30/2017 18:56 [facility] COMPARISON: CHEST SINGLE AP, May 16, 2017, 14:55. INDICATIONS : Shortness of breath and vomiting. MEDICAL HISTORY : Hypertension. SURGICAL HISTORY : Cholecystectomy. ENCOUNTER: Initial ACUITY: 1 day PAIN SCORE: 0/10 LOCATION: Bilateral chest FINDINGS: Heart size mildly enlarged. Mild edema pattern with bilateral effusions and basilar airspace disease most characteristic of atelectasis. No pneumothorax. CONCLUSION: 1. Pulmonary edema pattern with bilateral effusions most characteristic of congestive heart failure. Tyler Ngo MD on May 30, 2017 at 19:10 Board Certified Radiologist. This report was verified electronically.
[2017-05-30 19:15] VITALS: BP 153/76; PULSE 120; RESP 18; TEMP 97.6; O2SAT 98
[2017-05-30 19:46] LABS: AUTOMATED NEUTROPHIL # 12.4 TH/MM3 (1.8-7.7); BASOPHIL % 0.1 % (0.0-2.0); HEMATOCRIT 39.6 % (35.0-46.0); HEMO FLAGS DIFF FINAL; LYMPHOCYTE # 0.7 TH/MM3 (1.0-4.8); MEAN CELL VOLUME 84.8 FL (80.0-100.0); MEAN CORPUSCULAR HEMOGLOBIN 26.8 PG (27.0-34.0); MEAN CORPUSCULAR HGB CONC 31.6 % (32.0-36.0); MONO % 4.9 % (0.0-8.0); PLATELET COUNT 383 TH/MM3 (150-450); RED BLOOD COUNT 4.67 MIL/MM3 (4.00-5.30); RED CELL DISTRIBUTION WIDTH 14.4 % (11.6-17.2); WHITE BLOOD COUNT 13.8 TH/MM3 (4.0-11.0)
[2017-05-30] MEDS ORDERED: ONDANSETRON HCL 4 MG/2 ML VIAL IV PUSH ONE (20:00)
[2017-05-30 20:03] LABS: ANION GAP 12 MEQ/L (5-15); AST (GOT) 22 U/L (15-37); BICARBONATE 20.2 MEQ/L (21.0-32.0); BLOOD UREA NITROGEN 39 MG/DL (7-18); CHLORIDE 108 MEQ/L (98-107); GLOMERULAR FILTRATION RATE 55 ML/MIN (>89); POTASSIUM 5.1 MEQ/L (3.5-5.1); SODIUM (NA) 140 MEQ/L (136-145)
[2017-05-30 20:04] LABS: ALT (GPT) 9 U/L (10-53)
[2017-05-30 20:06] LABS: ALKALINE PHOSPHATASE 136 U/L (45-117); TOTAL BILIRUBIN ADULT 0.3 MG/DL (0.2-1.0)
[2017-05-30 20:07] LABS: INTERNATIONAL NORMALIZED RATIO 1.1 RATIO; PROTHROMBIN TIME - PATIENT 11.5 SEC (9.8-11.6)
[2017-05-30] MEDS: PANTOPRAZOLE INJ 80 MG in SODIUM CHLORIDE 0.9% INJ 100 ML IV SCH (20:30)
[2017-05-30] MEDS ORDERED: FUROSEMIDE 40 MG/4 ML VIAL IV PUSH ONE (20:30)
[2017-05-30] MEDS ORDERED: IOHEXOL 350 MG/ML 10 ML VIAL (for RAD DIAG) IVCONTRAST ONE (20:47)
[2017-05-30 21:06] LABS: BACTERIA, URINE RARE /hpf; BLOOD, URINE NEG (NEG); COMMENT (UR) CULTURE INDICATED; CULTURE IF INDICATED CULTURE INDICATED; GLUCOSE,URINE NEG (NEG); HYALINE CAST, URINE 7 /lpf (RARE); KETONE, URINE NEG (NEG); MUCUS URINE FEW /lpf (OCC); NITRITE,URINE NEG (NEG); PH, URINE 5.5 (5.0-8.5); URINE COLOR YELLOW (YELLW/STRAW)
--- NOTE | 2017-05-30 21:06 | RADRPT ---
EXAM DATE/TIME: 05/30/2017 20:44 [facility] COMPARISON: CT ABDOMEN & PELVIS W CONTRAST, May 16, 2017, 17:09. INDICATIONS : Abdominal pain and vomiting. IV CONTRAST: 96 cc Omnipaque 350 (iohexol) IV ORAL CONTRAST: No oral contrast ingested. RADIATION DOSE: 26.85 CTDIvol (mGy) ; Patient body habitus MEDICAL HISTORY : Cardiovascular disease. Diabetes mellitus type 1. Carcinoma, ovarian.with metastatic disease SURGICAL HISTORY : Cholecystectomy. ENCOUNTER: Initial ACUITY: 1 day PAIN SCALE: 6/10 LOCATION: abdomen TECHNIQUE: Volumetric scanning of the abdomen and pelvis was performed. Using automated exposure control and ad justment of the mA and/or kV according to patient size, radiation dose was kept as low as reasonably achievable to obtain optimal diagnostic quality images. DICOM format image data is available electro nically for review and comparison. FINDINGS: Compare May 16. Again seen is ascites which is similar to prior study. There is extensive periton eal spread of tumor, especially to the omentum. Multicystic left adnexal mass measuring up to 13 cm i n length and uterine mass measuring up to about 10 cm length are again visualized is a reported histo ry of ovarian carcinoma. Bladder is decompressed by Rogers. There is abnormal nodular enhancement on the surface of the liver. Probable small hepatic cysts present. Spleen, adrenals and pancreas unremarkable. Nonobstructing bila teral renal calculi. There is moderate bilateral hydronephrosis. Retroperitoneal adenopathy is relati vely stable. Bilateral pleural effusions, increased on the left since May 16. CONCLUSION: 1. Extensive peritoneal and omental carcinomatosis as above reportedly secondary to an ovarian malign manuel. Left adnexal mass and uterine mass similar to prior study from May 16. 2. Slight increase in size of left pleural effusion. 3. Moderate ascites, relatively stable. 4. Mild anasarca. Tyler Ngo MD on May 30, 2017 at 20:58 Board Certified Radiologist. This report was verified electronically.
[2017-05-30] MEDS ORDERED: PROM2INJ IM (21:11)
[2017-05-30] MEDS ORDERED: ZOFR4TAB3 SL (21:11)
--- NOTE | 2017-05-30 21:29 | EKG ---
Date Performed: 05/30/2017 Time Performed: 19:15:54 PTAGE: 67 years EKG: SINUS TACHYCARDIA WITH SHORT WY INTERVAL BORDERLINE LEFT AXIS DEVIATION RIGHT BUNDLE BRANCH BLOCK ABNORMAL ECG NO PREVIOUS TRACING DOCTOR: Collin Adam Interpretating Date/Time 05/30/2017 21:28:17
--- NOTE | 2017-05-30 21:36 | HHI.HP ---
HPI Service [place] [facility] Primary Care Physician Unknown Admission Diagnosis intractable vomiting; abdominal pain; CHF Diagnoses: (1) Intractable nausea and vomiting Diagnosis: Principal (2) Hematemesis Diagnosis: Principal (3) UTI (urinary tract infection) Diagnosis: Principal (4) CHF (congestive heart failure) Diagnosis: Principal (5) Ovarian ca Diagnosis: Principal (6) DM (diabetes mellitus) Diagnosis: Principal Travel History International Travel<30 Days: No Contact w/Intl Traveler <30 Da: No Traveled to Known Affected Are: No History of Present Illness This is a 67-year-old female with a PMH of Metastatic Ovarian CVA, DM and HTN who presented to the ER w/ complaints of abdominal pain in addition to nausea/ vomiting. Recent admit 05/16-05/23/17 for similar complaints, found to have ovarian/uterine mass, s/p CT Guided Biopsy 05/19/[address] Contreras. D/c' d to Rehab and returns now w/ above complaints. Also reports few episodes of hematemesis. On arrival, BP 129/72, HR 116, O2 sat 98% on RA, Afebrile. WBC 13.8. Hgb 12.5, previously 12.9 on 05/21/17. INR 1.1. UA positive for UTI. CXR with pulmonary edema and bilateral effusions. CT Abd/Pelvis w/ extensive peritoneal and omental carcinomatosis secondary to ovarian malignancy Alvina left adnexal mass and uterine mass similar to previous study a slight increase in size of left pleural effusion, moderate ascites. S/p Lasix in ER in addition to multiple doses of antiemetics. Started on Protonix gtt. Review of Systems Except as stated in HPI: all other systems reviewed are Neg ROS: 14 point review of systems otherwise negative. Past Family Social History Past Medical History PMH: Metastatic Ovarian CVA, DM and HTN Past Surgical History PAST SURGICAL HISTORY: Hernia Repair, Cholecystectomy Allergies: Coded Allergies: No Known Allergies (Verified Allergy, Mild, 05/30/17) Family History PAST FAMILY HISTORY: Reviewed. No h/o DM or CAD Social History PAST SOCIAL HISTORY: Negative for alcohol, tobacco or drugs. Physical Exam Vital Signs Vital Signs Date Time Temp Pulse Resp B/P (MAP) Pulse Ox O2 Delivery O2 Flow Rate FiO2 05/30/17 19:15 97.6 120 18 153/76 (101) 98 Nasal Cannula 2.00 05/30/17 18:53 97.8 116 24 129/72 (91) 97 Room Air 05/30/17 18:53 98 Room Air 05/30/17 18:50 97.8 131 23 129/72 (91) 97 Physical Exam PE: GENERAL: Thin, cachectic, chronically ill-appearing middle-aged female, appears much older than stated age. HEENT: PERRLA, EOMI. No scleral icterus or conjunctival pallor. No lid lag or facial droop. CARDIOVASCULAR: Regular rate and rhythm. No obvious murmurs to auscultation. No chest tenderness to palpation. RESPIRATORY: No obvious rhonchi or wheezing. Clear to auscultation. Breath sounds equal bilaterally. GASTROINTESTINAL: Abdomen soft, generalized tenderness to palpation, nondistended. BS normal. MUSCULOSKELETAL: Extremities without clubbing, cyanosis, or edema. No obvious deformities. NEUROLOGICAL: Awake, alert and oriented x4. No focal neurologic deficits. Moving both upper and lower extremities spontaneously. Laboratory Laboratory Tests Test 05/30/17 19:00 05/30/17 20:30 White Blood Count 13.8 Red Blood Count 4.67 Hemoglobin 12.5 Hematocrit 39.6 Mean Corpuscular Volume 84.8 Mean Corpuscular Hemoglobin 26.8 Mean Corpuscular Hemoglobin Concent 31.6 Red Cell Distribution Width 14.4 Platelet Count 383 Mean Platelet Volume 8.4 Neutrophils (%) (Auto) 90.0 Lymphocytes (%) (Auto) 5.0 Monocytes (%) (Auto) 4.9 Eosinophils (%) (Auto) 0.0 Basophils (%) (Auto) 0.1 Neutrophils # (Auto) 12.4 Lymphocytes # (Auto) 0.7 Monocytes # (Auto) 0.7 Eosinophils # (Auto) 0.0 Basophils # (Auto) 0.0 CBC Comment DIFF FINAL Differential Comment Prothrombin Time 11.5 Prothromb Time International Ratio 1.1 Activated Partial Thromboplast Time 30.0 Blood Urea Nitrogen 39 Creatinine 1.00 Random Glucose 160 Total Protein 6.1 Albumin 1.9 Calcium Level 8.3 Alkaline Phosphatase 136 Aspartate Amino Transf (AST/SGOT) 22 Alanine Aminotransferase (ALT/SGPT) 9 Total Bilirubin 0.3 Sodium Level 140 Potassium Level 5.1 Chloride Level 108 Carbon Dioxide Level 20.2 Anion Gap 12 Estimat Glomerular Filtration Rate 55 Lipase 101 Urine Color YELLOW Urine Turbidity CLEAR Urine pH 5.5 Urine Specific [place] 1.017 Urine Protein TRACE Urine Glucose (UA) NEG Urine Ketones NEG Urine Occult Blood NEG Urine Nitrite NEG Urine Bilirubin NEG Urine Urobilinogen LESS THAN 2.0 Urine Leukocyte Esterase MOD Urine RBC 2 Urine WBC 12 Urine Bacteria RARE Urine Hyaline Casts 7 Urine Mucus FEW Microscopic Urinalysis Comment CULTURE INDICATED Date/Time Source Procedure Growth Status 05/30/17 20:30 Urine Random Urine Urine Culture Pending Received Result Diagram: 05/30/17189905/30/171899 Jyoti VTE Risk Assessment Jyoti VTE Risk Assessment: No/Low Risk (score <= 1) Elanrini Risk Assessment Model Point Value = 1 Point Value = 2 Point Value = 3 Point Value = 5 Age 41-60 Minor surgery BMI > 25 kg/m2 Swollen legs Varicose veins or History of unexplained or recurrent spontaneous Oral contraceptives or hormone replacement Sepsis (< 1 month) Serious lung disease, including pneumonia (< 1 month) Abnormal pulmonary function Acute myocardial infarction Congestive heart failure (< 1 month) History of inflammatory bowel disease Medical patient at bed rest Age 61-74 Arthroscopic surgery Major open surgery (> 45 min) Laparoscopic surgery (> 45 min) Malignancy Confined to bed (> 72 hours) Immobilizing plaster cast Central venous access Age >= 75 History of VTE Family history of VTE Factor V Leiden Prothrombin [id number] Lupus anticoagulant Anticardiolipin antibodies Elevated serum homocysteine Heparin-induced thrombocytopenia Other congenital or acquired thrombophilia Stroke (< 1 month) Elective arthroplasty Hip, pelvis, or leg fracture Acute spinal cord injury (< 1 month) Prophylaxis Regimen Total Risk Factor Score Risk Level Prophylaxis Regimen 0-1 Low Early ambulation 2 Moderate Order ONE of the following: *Sequential Compression Device (SCD) *Heparin 5000 units SQ BID 3-4 Higher Order ONE of the following medications: *Heparin 5000 units SQ TID *Enoxaparin/Lovenox 40 mg SQ daily (WT < 150 kg, CrCl > 30 mL/min) *Enoxaparin/Lovenox 30 mg SQ daily (WT < 150 kg, CrCl > 10-29 mL/min) *Enoxaparin/Lovenox 30 mg SQ BID (WT < 150 kg, CrCl > 30 mL/min) AND/OR *Sequential Compression Device (SCD) 5 or more Highest Order ONE of the following medications: *Heparin 5000 units SQ TID (Preferred with Epidurals) *Enoxaparin/Lovenox 40 mg SQ daily (WT < 150 kg, CrCl > 30 mL/min) *Enoxaparin/Lovenox 30 mg SQ daily (WT < 150 kg, CrCl > 10-29 mL/min) *Enoxaparin/Lovenox 30 mg SQ BID (WT < 150 kg, CrCl > 30 mL/min) AND *Sequential Compression Device (SCD) Assessment and Plan Problem List: (1) Intractable nausea and vomiting ICD Code: R11.2 - Nausea with vomiting, unspecified (2) Hematemesis ICD Code: K92.0 - Hematemesis (3) UTI (urinary tract infection) ICD Code: N39.0 - Urinary tract infection, site not specified (4) Ovarian ca ICD Code: C56.9 - Malignant neoplasm of unspecified ovary (5) CHF (congestive heart failure) ICD Code: I50.9 - Heart failure, unspecified (6) DM (diabetes mellitus) ICD Code: E11.9 - Type 2 diabetes mellitus without complications Assessment and Plan A/P: 1. Intractable NV: w/ c/o generalized abdominal pain, decreased PO intake, s/ p multiple doses of antiemetics in ER. Continue w/ Zofran/Phenergan/Tigan as needed. CT Abd/Pelvis w/ ovarian/uterine mass and extensive carcinomatosis, ascites similar to previous study, images reviewed by me. 2. Hematemesis: Likely secondary to esophageal tear from significant nausea/ vomiting. Hgb 12.5, previously 12.9 on 05/21/17. On Protonix gtt in ER. Will monitor closely, recheck Hgb/Hct in am. Consult GI if symptoms ongoing. 3. UTI: U/a w/ UTI, s/p Rocephin in ER, continue w/ IV Abx. Follow up urine cultures. 4. CHF: Unknown EF. CXR w/ pulmonary edema and bilateral pleural effusions, images reviewed by me. Similar symptoms on recent admit s/p Lasix w/ good result. S/p Lasix in ER. Continue w/ gentle diuresis to avoid dehydration in light of intractable nausea/vomiting and decreased PO intake. 5. Ovarian CA: w/ Mets. Following w/ Dr. Contreras. 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 Pending possible chemo/surgical intervention. 6. DM: Sliding scale w/ Accu-Cheks. Hold home medications in light of decreased PO intake. 7. DVT Prophylaxis: SCD/Teds. 8. Social work for d/c planning as needed. 9. Case discussed w/ ER physician at length. Lois Fragoso MD May 30, 2017 21:36
[2017-05-30] MEDS ORDERED: DEXTROSE 50% IN WATER 50 ML VIAL(D50) IV PUSH PRN (21:45)
[2017-05-30] MEDS ORDERED: DEXT 5%-NACL 0.9% 500 ML INJ 500 ML IV ONE (21:45)
[2017-05-30] MEDS ORDERED: ACETAMINOPHEN 325 MG TAB PO PRN (21:45)
[2017-05-30] MEDS ORDERED: SENNOSIDES 8.6 MG TAB PO PRN (21:45)
[2017-05-30] MEDS ORDERED: LACTULOSE SYRUP 20 GM/30 ML CUP PO PRN (21:45)
[2017-05-30] MEDS ORDERED: MAGNESIUM HYDROXIDE SUSP 30 ML CUP PO PRN (21:45)
[2017-05-30] MEDS ORDERED: TRIMETHOBENZAMIDE INJ 200 MG/2 ML VIAL IM PRN (21:45)
[2017-05-30] MEDS ORDERED: ONDANSETRON HCL 4 MG/2 ML VIAL IVP PRN (21:45)
[2017-05-30] MEDS ORDERED: BISACODYL 10 MG SUPP RECTAL PRN (21:45)
[2017-05-30] MEDS ORDERED: SODIUM CHLORIDE 0.9% FLUSH 10 ML FLUSH IV FLUSH PRN (21:45)
[2017-05-30] MEDS ORDERED: ACETAMINOPHEN/HYDROcodone 325 MG/5 MG TAB PO PRN (21:45)
[2017-05-30] MEDS ORDERED: GLUCAGON 1 MG/ML VIAL OTHER PRN (21:45)
[2017-05-30] MEDS: METOPROLOL TARTRATE 50 MG TAB PO SCH (22:00)
[2017-05-30] MEDS ORDERED: MORPHINE SULFATE 2 MG/ML INJ IV PRN (22:00)
[2017-05-30 22:26] VITALS: BP 102/49; PULSE 114; RESP 16; TEMP 98.4; O2SAT 98
[2017-05-30] MEDS: cefTRIAXone INJ 1,000 MG in SODIUM CHLORIDE 0.9% INJ 100 ML IV SCH (22:26)
[2017-05-31 00:31] VITALS: BP 99/71; PULSE 121; RESP 17; TEMP 97.9; O2SAT 94
[2017-05-31 04:28] VITALS: BP 118/59; PULSE 116; RESP 17; TEMP 97.8; O2SAT 96
[2017-05-31] MEDS: PANTOPRAZOLE INJ 80 MG in SODIUM CHLORIDE 0.9% INJ 100 ML IV SCH ×2 (04:53→15:54)
[2017-05-31 08:44] LABS: AUTOMATED NEUTROPHIL # 10.1 TH/MM3 (1.8-7.7); BASOPHIL % 0.1 % (0.0-2.0); EOSINOPHIL % 0.1 % (0.0-4.0); HEMATOCRIT 38.7 % (35.0-46.0); HEMO FLAGS DIFF FINAL; LYMPH % 7.5 % (9.0-44.0); LYMPHOCYTE # 0.9 TH/MM3 (1.0-4.8); MEAN CELL VOLUME 84.8 FL (80.0-100.0); MEAN CORPUSCULAR HGB CONC 31.8 % (32.0-36.0); MONO % 6.5 % (0.0-8.0); NEUT % 85.8 % (16.0-70.0); PLATELET COUNT 360 TH/MM3 (150-450); RED BLOOD COUNT 4.56 MIL/MM3 (4.00-5.30); RED CELL DISTRIBUTION WIDTH 14.6 % (11.6-17.2); WHITE BLOOD COUNT 11.8 TH/MM3 (4.0-11.0)
[2017-05-31 08:58] LABS: ALT (GPT) 9 U/L (10-53); ANION GAP 10 MEQ/L (5-15); AST (GOT) 21 U/L (15-37); BICARBONATE 22.6 MEQ/L (21.0-32.0); BLOOD UREA NITROGEN 39 MG/DL (7-18); CHLORIDE 108 MEQ/L (98-107); GLOMERULAR FILTRATION RATE 45 ML/MIN (>89); POTASSIUM 5.4 MEQ/L (3.5-5.1); SODIUM (NA) 141 MEQ/L (136-145)
[2017-05-31 09:00] LABS: ALKALINE PHOSPHATASE 126 U/L (45-117); TOTAL BILIRUBIN ADULT 0.4 MG/DL (0.2-1.0)
[2017-05-31] MEDS: SODIUM CHLORIDE 0.9% FLUSH 10 ML FLUSH IV FLUSH SCH ×2 (09:00→20:38)
[2017-05-31] MEDS: DOCUSATE SODIUM 50 MG/SENNA 8.6 MG TAB PO SCH ×2 (09:00→20:38)
[2017-05-31] MEDS: SODIUM CHLOR 0.9% 1000 ML INJ 1,000 ML IV SCH ×2 (09:15→20:37)
[2017-05-31 11:19] VITALS: BP 135/63; PULSE 113; RESP 20; TEMP 97.7; O2SAT 97
[2017-05-31] MEDS ORDERED: SODIUM CHLORID 0.9% 500 ML INJ 500 ML IV ONE (11:30)
--- NOTE | 2017-05-31 11:31 | HHI.PR ---
Subjective Remarks Follow-up due to hematemesis, abdominal pain, UTI Patient is a poor historian. She stated that she hadn't had any episodes of emesis or abdominal pain since she is admitted, but feels like she does not feel well. Patient stated that she is extremely weak. She then asked for ice tea. He stated that she has not eaten anything for 2 weeks due to the emesis. Otherwise no other complaints. Objective Vitals Vital Signs Date Time Temp Pulse Resp B/P (MAP) Pulse Ox O2 Delivery O2 Flow Rate FiO2 05/31/17 04:28 97.8 116 17 118/59 (78) 96 05/31/17 00:31 97.9 121 17 99/71 (80) 94 05/30/17 22:26 98.4 114 16 102/49 (66) 98 Nasal Cannula 2.00 05/30/17 19:15 97.6 120 18 153/76 (101) 98 Nasal Cannula 2.00 05/30/17 18:53 97.8 116 24 129/72 (91) 97 Room Air 05/30/17 18:53 98 Room Air 05/30/17 18:50 97.8 131 23 129/72 (91) 97 I/O 05/30/17 05/30/17 05/30/17 05/31/17 05/31/17 05/31/17 07:00 15:00 23:00 07:00 15:00 23:00 Intake Total 50 ml Output Total 100 ml 500 ml Balance -50 ml -500 ml Intake IV Total 50 ml Output Urine Total 500 ml Emesis 100 ml Result Diagram: 05/31/1782205/31/17822 Objective Remarks GENERAL: Chronically ill appearing CARDIOVASCULAR: Regular rate and rhythm without murmurs, gallops, or rubs. RESPIRATORY: Breath sounds equal bilaterally. No accessory muscle use. GASTROINTESTINAL: Abdomen soft, nondistended. Diffuse tenderness palpation in the abdomen. Negative for any peritoneal signs. MUSCULOSKELETAL: No cyanosis, or edema. BACK: Nontender without obvious deformity. No CVA tenderness. Medications and IVs Current Medications Sodium Chloride 1,000 ml @ 1,000 mls/hr Q1H IV Last administered on t 19:09; Start 05/30/17 at 18:25; Stop 05/30/17 at 19:21; Status DC Sodium Chloride (NS Flush) 2 ml UNSCH PRN IVF FLUSH AFTER USING IV ACCESS Last administered on 05/30/17 19:10; Start 05/30/17 at 18:30; Stop 05/30/17 at 21 :52; Status DC Pantoprazole Sodium 80 mg/ Sodium Chloride 35 ml @ 420 mls/hr Q5M ONCE IV Last administered on 05/30/17 20:30; Start 05/30/17 at 18:25; Stop 05/30/17 at 18:30; Status DC Pantoprazole Sodium 80 mg/ Sodium Chloride 100 ml @ 10 mls/hr Q10H IV Last administered on 05/31/17 04:53; Start 05/30/17 at 18:25 Metoclopramide HCl (Reglan Inj) 10 mg ONCE ONCE IV PUSH Last administered on 05/30/17 19:10; Start 05/30/17 at 18:30; Stop 05/30/17 at 18:31; Status DC Ondansetron HCl (Zofran Inj) 4 mg ONCE ONCE IV PUSH Last administered on 05/30 20:40; Start 05/30/17 at 20:00; Stop 05/30/17 at 20:01; Status DC Furosemide (Lasix Inj) 40 mg ONCE ONCE IV PUSH Last administered on 21:35; Start 05/30/17 at 20:30; Stop 05/30/17 at 20:31; Status DC Iohexol (Omnipaque 350 Inj) 96 ml STK-MED ONCE IVCONTRAST Last administered on 05/30/17 20:47; Start 05/30/17 at 20:47; Stop 05/30/17 at 20:48; Status DC Ceftriaxone Sodium 1000 mg/ Sodium Chloride 100 ml @ 200 mls/hr Q24H IV Last administered on 05/30/17 22:26; Start 05/30/17 at 22:00 Trimethobenzamide HCl (Tigan Inj) 200 mg Q6H PRN IM NAUSEA/VOMITING; Start at 21:45 Sodium Chloride (NS Flush) 2 ml UNSCH PRN IV FLUSH FLUSH AFTER USING IV ACCESS ; Start 05/30/17 at 21:45 Sodium Chloride (NS Flush) 2 ml BID IV FLUSH ; Start 05/31/17 at 09:00 Ondansetron HCl (Zofran Inj) 4 mg Q6H PRN IVP NAUSEA OR VOMITING; Start at 21:45 Acetaminophen (Tylenol) 650 mg Q6H PRN PO FEVER/PAIN SCALE 1 TO 2; Start 05/30 at 21:45 Acetaminophen/ Hydrocodone Bitart ([place] 5-325 Mg) 1 tab Q4H PRN PO PAIN SCALE 3 TO 5; Start 05/30/17 at 21:45 Morphine Sulfate (Morphine Inj) 2 mg Q3H PRN IV PAIN SCALE 6 TO 10; Start at 22:00 Senna/Docusate Sodium (Page-Colace) 1 tab BID PO ; Start 05/31/17 at 09:00 Magnesium Hydroxide (Milk Of Magnesia Liq) 30 ml Q12H PRN PO Mild constipation ; Start 05/30/17 at 21:45 Sennosides (Senokot) 17.2 mg Q12H PRN PO Moderate constipation; Start at 21:45 Bisacodyl (Dulcolax Supp) 10 mg DAILY PRN RECTAL SEVERE CONSITIPATION; Start 05/30/17 at 21:45 Lactulose (Lactulose Liq) 30 ml DAILY PRN PO SEVERE CONSITIPATION; Start 05/30 at 21:45 Dextrose (D50w (Vial) Inj) 50 ml UNSCH PRN IV PUSH HYPOGLYCEMIA-SEE COMMENTS; Start 05/30/17 at 21:45 Glucagon (Glucagon Inj) 1 mg UNSCH PRN OTHER HYPOGLYCEMIA-SEE COMMENTS; Start 05/30/17 at 21:45 Metoprolol Tartrate (Lopressor) 50 mg Q8HR PO ; Start 05/30/17 at 22:00 Dextrose/Sodium Chloride 500 ml @ 100 mls/hr BOLUS ONCE IV Last administered on 05/30/17t 23:02; Start 05/30/17 at 21:45; Stop 05/31/17 at 02:44; Status DC Sodium Chloride 1,000 ml @ 100 mls/hr Q10H IV ; Start 05/31/17 at 09:15 A/P Problem List: (1) Intractable nausea and vomiting ICD Code: R11.2 - Nausea with vomiting, unspecified (2) Hematemesis ICD Code: K92.0 - Hematemesis (3) UTI (urinary tract infection) ICD Code: N39.0 - Urinary tract infection, site not specified (4) Ovarian ca ICD Code: C56.9 - Malignant neoplasm of unspecified ovary (5) CHF (congestive heart failure) ICD Code: I50.9 - Heart failure, unspecified (6) DM (diabetes mellitus) ICD Code: E11.9 - Type 2 diabetes mellitus without complications Assessment and Plan 67-year-old female with recent diagnosis of ovarian cancer/uterine mass with extensive carcinomatosis Intractable NV: -CT Abd/Pelvis w/ ovarian/uterine mass and extensive carcinomatosis, ascites. -Most likely secondary to extensive ovarian cancer. -Continue supportive care with antiemetics. Will add IV fluids. Dehydration -BUN elevated and creatinine increase. Patient also has tachycardia. -Start IV fluids. -Strict ins and outs. -Avoid nephrotoxins and continue to monitor creatinine. Tachycardia -May be secondary to dehydration. Patient is poor historian. -As above and continue to monitor closely. Hematemesis: Likely secondary to esophageal tear from significant nausea/ vomiting. Hgb 12.5, previously 12.9 on 05/21/17. -Patient denies any current emesis. -Continue with Protonix drip. Hemoglobin is stable. Continue to trend hemoglobin. Consult GI. UTI: - U/a w/ UTI, s/p Rocephin in ER, continue w/ IV Abx. - Follow up urine cultures. CHF: Unknown EF. -CXR w/ pulmonary edema and bilateral pleural effusion, the patient is asymptomatic. BNP is normal at 25. -Will need to be cautious with fluid due to CHF but patient is dehydrated and tachycardic. -Continue monitor closely. 5. Ovarian CA: w/ Mets. - Following w/ Dr. Contreras. 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 -Poor prognosis. Consult palliative care. DM: Sliding scale w/ Accu-Cheks. Hold home medications in light of decreased PO intake. Patient meets inpatient criteria due to intractable emesis causing severe dehydration in a patient with CHF, chronic abdominal pain secondary to ovarian cancer with metastases, hematemesis in which she is currently on protonics drip and tachycardia. Patient will require at least 2-3 days of hospitalization due to her illness. Erika Giordano MD May 31, 2017 11:31
[2017-05-31 12:00] VITALS: BP 160/71; PULSE 95; RESP 20; TEMP 99.7; O2SAT 95
[2017-05-31] MEDS: METOPROLOL TARTRATE 50 MG TAB PO SCH ×2 (14:00→22:17)
--- NOTE | 2017-05-31 14:37 | PD.CONS ---
HPI History of Present Illness This is a 67 year old female who presented to the ED with c/o abdominal pain, nausea and vomiting. Patient reports hematemesis. She states she has had nausea and vomiting for 2 weeks and has noted small specks of blood in vomit. PMH is significant for metastatic ovarian cancer, CVA, DM, and hypertension. Patient was recently admitted to hospital with similar complaints 05/16-05/23/17, where she was found to have ovarian/uterine mass, s/p CT guided biopsy 05/19/17. Patient was discharged to Rehab. GI was consulted for evaluation of hematemesis. She denies any further episodes of emesis since admission. PFSH Past Medical History Metastatic Ovarian CVA DM HTN Past Surgical History Hernia Repair Cholecystectomy Coded Allergies: No Known Allergies (Verified Allergy, Mild, 05/30/17) Medications Current Medications Medications (Trade) Dose Ordered Sig/Benita Route PRN Reason Start Time Stop Time Status Last Admin Dose Admin Pantoprazole Sodium 80 mg/ Sodium Chloride 100 ml @ 10 mls/hr Q10H IV 05/30/17 18:25 05/31/17 04:53 Ceftriaxone Sodium 1000 mg/ Sodium Chloride 100 ml @ 200 mls/hr Q24H IV 05/30/17 22:00 05/30/17 22:26 Trimethobenzamide HCl (Tigan Inj) 200 mg Q6H PRN IM NAUSEA/VOMITING 05/30/17 21:45 Sodium Chloride (NS Flush) 2 ml UNSCH PRN IV FLUSH FLUSH AFTER USING IV ACCESS 05/30/17 21:45 Sodium Chloride (NS Flush) 2 ml BID IV FLUSH 05/31/17 09:00 Ondansetron HCl (Zofran Inj) 4 mg Q6H PRN IVP NAUSEA OR VOMITING 05/30/17 21:45 Acetaminophen (Tylenol) 650 mg Q6H PRN PO FEVER/PAIN SCALE 1 TO 2 05/30/17 21:45 Acetaminophen/ Hydrocodone Bitart ([place] 5-325 Mg) 1 tab Q4H PRN PO PAIN SCALE 3 TO 5 05/30/17 21:45 Morphine Sulfate (Morphine Inj) 2 mg Q3H PRN IV PAIN SCALE 6 TO 10 05/30/17 22:00 Senna/Docusate Sodium (Page-Colace) 1 tab BID PO 05/31/17 09:00 Magnesium Hydroxide (Milk Of Magnesia Liq) 30 ml Q12H PRN PO Mild constipation 05/30/17 21:45 Sennosides (Senokot) 17.2 mg Q12H PRN PO Moderate constipation 05/30/17 21:45 Bisacodyl (Dulcolax Supp) 10 mg DAILY PRN RECTAL SEVERE CONSITIPATION 05/30/17 21:45 Lactulose (Lactulose Liq) 30 ml DAILY PRN PO SEVERE CONSITIPATION 05/30/17 21:45 Dextrose (D50w (Vial) Inj) 50 ml UNSCH PRN IV PUSH HYPOGLYCEMIA-SEE COMMENTS 05/30/17 21:45 Glucagon (Glucagon Inj) 1 mg UNSCH PRN OTHER HYPOGLYCEMIA-SEE COMMENTS 05/30/17 21:45 Metoprolol Tartrate (Lopressor) 50 mg Q8HR PO 05/30/17 22:00 Sodium Chloride 1,000 ml @ 50 mls/hr Q20H IV 05/31/17 09:15 05/31/17 09:15 Family History Non contributory Social History Tobacco, denies Alcohol, denies Illicit Drugs, denies Review of Systems Constitutional: DENIES: Diaphoretic episodes, Fatigue, Fever, Weight gain, Weight loss, Chills, Dizziness, Change in appetite, Night Sweats Endocrine: DENIES: Polydipsia, Polyuria Eyes: DENIES: Blurred vision, Photosensitivity, Double Vision Ears, nose, mouth, throat: DENIES: Hearing loss, Vertigo, Oral lesions, Throat pain, Hoarseness Respiratory: DENIES: Cough, Wheezing, Hemoptysis, Sputum production, Shortness of breath Cardiovascular: DENIES: Chest pain, Palpitations, Syncope, Lower Extremity Edema, Orthopnea, Claudication Gastrointestinal: COMPLAINS OF: Abdominal pain, Nausea, Vomiting, Hematemesis, DENIES: Black stools, Bloody stools, Constipation, Diarrhea, Difficulty Swallowing, Anorexia, Odynophagia, Swelling of Abdomen, Heartburn Genitourinary: DENIES: Urinary frequency, Urinary incontinence, Urgency, Hematuria, Dysuria, Nocturia Musculoskeletal: DENIES: Joint pain, Muscle aches, Stiffness, Joint Swelling, Back pain, Neck pain Integumentary: DENIES: Abnormal pigmentation, Nail changes, Pruritus, Rash, Jaundice Hematologic/lymphatic: DENIES: Bruising, Lymphadenopathy Immunologic/allergic: DENIES: Eczema, Urticaria Neurologic: DENIES: Abnormal gait, Headache, Localized weakness, Paresthesias Psychiatric: DENIES: Anxiety, Confusion, Mood changes, Depression, Agitation, Suicidal Ideation GI Exam Vitals I&O Vital Signs Date Time Temp Pulse Resp B/P (MAP) Pulse Ox O2 Delivery O2 Flow Rate FiO2 05/31/17 11:19 97.7 113 20 135/63 (87) 97 05/31/17 04:28 97.8 116 17 118/59 (78) 96 05/31/17 00:31 97.9 121 17 99/71 (80) 94 05/30/17 22:26 98.4 114 16 102/49 (66) 98 Nasal Cannula 2.00 05/30/17 19:15 97.6 120 18 153/76 (101) 98 Nasal Cannula 2.00 05/30/17 18:53 97.8 116 24 129/72 (91) 97 Room Air 05/30/17 18:53 98 Room Air 05/30/17 18:50 97.8 131 23 129/72 (91) 97 I/O 05/30/17 05/30/17 05/30/17 05/31/17 05/31/17 05/31/17 07:00 15:00 23:00 07:00 15:00 23:00 Intake Total 50 ml Output Total 100 ml 500 ml Balance -50 ml -500 ml Intake IV Total 50 ml Output Urine Total 500 ml Emesis 100 ml Imaging Last Impressions Chest X-Ray 05/30/17 1825 Signed Impressions: Service Date/Time: Tuesday, May 30, 2017 18:56 - CONCLUSION: 1. Pulmonary edema pattern with bilateral effusions most characteristic of congestive heart failure. Tyler Ngo MD Abdomen/Pelvis CT 05/30/17 0000 Signed Impressions: Service Date/Time: Tuesday, May 30, 2017 20:44 - CONCLUSION: 1. Extensive peritoneal and omental carcinomatosis as above reportedly secondary to an ovarian malignancy. Left adnexal mass and uterine mass similar to prior study from May 16. 2. Slight increase in size of left pleural effusion. 3. Moderate ascites, relatively stable. 4. Mild anasarca. Tyler Ngo MD Laboratory Test 05/30/17 19:00 05/30/17 20:30 05/31/17 08:23 White Blood Count 13.8 TH/MM3 11.8 TH/MM3 Red Blood Count 4.67 MIL/MM3 4.56 MIL/MM3 Hemoglobin 12.5 GM/DL 12.3 GM/DL Hematocrit 39.6 % 38.7 % Mean Corpuscular Volume 84.8 FL 84.8 FL Mean Corpuscular Hemoglobin 26.8 PG 27.0 PG Mean Corpuscular Hemoglobin Concent 31.6 % 31.8 % Red Cell Distribution Width 14.4 % 14.6 % Platelet Count 383 TH/MM3 360 TH/MM3 Mean Platelet Volume 8.4 FL 8.1 FL Neutrophils (%) (Auto) 90.0 % 85.8 % Lymphocytes (%) (Auto) 5.0 % 7.5 % Monocytes (%) (Auto) 4.9 % 6.5 % Eosinophils (%) (Auto) 0.0 % 0.1 % Basophils (%) (Auto) 0.1 % 0.1 % Neutrophils # (Auto) 12.4 TH/MM3 10.1 TH/MM3 Lymphocytes # (Auto) 0.7 TH/MM3 0.9 TH/MM3 Monocytes # (Auto) 0.7 TH/MM3 0.8 TH/MM3 Eosinophils # (Auto) 0.0 TH/MM3 0.0 TH/MM3 Basophils # (Auto) 0.0 TH/MM3 0.0 TH/MM3 CBC Comment DIFF FINAL DIFF FINAL Differential Comment Prothrombin Time 11.5 SEC Prothromb Time International Ratio 1.1 RATIO Activated Partial Thromboplast Time 30.0 SEC Blood Urea Nitrogen 39 MG/DL 39 MG/DL Creatinine 1.00 MG/DL 1.20 MG/DL Random Glucose 160 MG/DL 161 MG/DL Total Protein 6.1 GM/DL 6.2 GM/DL Albumin 1.9 GM/DL 1.8 GM/DL Calcium Level 8.3 MG/DL 8.3 MG/DL Alkaline Phosphatase 136 U/L 126 U/L Aspartate Amino Transf (AST/SGOT) 22 U/L 21 U/L Alanine Aminotransferase (ALT/SGPT) 9 U/L 9 U/L Total Bilirubin 0.3 MG/DL 0.4 MG/DL Sodium Level 140 MEQ/L 141 MEQ/L Potassium Level 5.1 MEQ/L 5.4 MEQ/L Chloride Level 108 MEQ/L 108 MEQ/L Carbon Dioxide Level 20.2 MEQ/L 22.6 MEQ/L Anion Gap 12 MEQ/L 10 MEQ/L Estimat Glomerular Filtration Rate 55 ML/MIN 45 ML/MIN B-Type Natriuretic Peptide 25 PG/ML Lipase 101 U/L Urine Color YELLOW Urine Turbidity CLEAR Urine pH 5.5 Urine Specific [place] 1.017 Urine Protein TRACE mg/dL Urine Glucose (UA) NEG mg/dL Urine Ketones NEG mg/dL Urine Occult Blood NEG Urine Nitrite NEG Urine Bilirubin NEG Urine Urobilinogen LESS THAN 2.0 MG/DL Urine Leukocyte Esterase MOD Urine RBC 2 /hpf Urine WBC 12 /hpf Urine Bacteria RARE /hpf Urine Hyaline Casts 7 /lpf Urine Mucus FEW /lpf Microscopic Urinalysis Comment CULTURE INDICATED Lactic Acid Level 1.6 mmol/L Date/Time Source Procedure Growth Status 05/30/17 20:30 Urine Random Urine Urine Culture - Preliminary IMMATURE GROWTH - REINCUBATE Resulted Physical Examination HEENT: Normocephalic; atraumatic; no jaundice. NECK: Neck is supple CHEST: Chest is clear to auscultation and percussion. CARDIAC: Regular rate and rhythm with no murmur gallop or rubs. ABDOMEN: Soft, obese, nontender; no hepatosplenomegaly; bowel sounds are present in all four quadrants. EXTREMITIES: No clubbing, cyanosis, or edema. SKIN: Normal; no rash; no jaundice. FACULTY PHYSICIAN: Lethargic Assessment and Plan Plan ASSESSMENT: - Hematemesis. Patient with nausea and vomiting x 2 weeks with specks of blood noted in vomit. - Ovarian CA, w/ Mets. Followed by Dr. Contreras. 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 Pending possible chemo/surgical intervention. PLAN: - EGD on Thursday - Obtain consents - NPO at [facility] - Protonic gtt - Monitor HH, transfuse as needed - Notify GI of active bleeding - Anti-emetics - Supportive care - Further recommendations to follow based on results of above Patient seen and examined by Dr. Coles and myself and this note is written on his behalf. Shanika Sykes May 31, 2017 14:37
[2017-05-31 16:00] VITALS: BP 111/58; PULSE 90; RESP 20; TEMP 97.6; O2SAT 96
[2017-05-31 20:08] VITALS: BP 115/60; PULSE 89; RESP 20; TEMP 97.6; O2SAT 96
[2017-05-31] MEDS: cefTRIAXone INJ 1,000 MG in SODIUM CHLORIDE 0.9% INJ 100 ML IV SCH (22:18)
[2017-06-01] VITALS (9 sets, daily range): BP systolic 113–138; BP diastolic 52–62; PULSE 76–93; RESP 16–21; TEMP 97.2–97.9; O2SAT 92–97
[2017-06-01] MEDS: PANTOPRAZOLE INJ 80 MG in SODIUM CHLORIDE 0.9% INJ 100 ML IV SCH ×2 (02:35→13:59)
[2017-06-01] MEDS: SODIUM CHLOR 0.9% 1000 ML INJ 1,000 ML IV SCH (03:00)
[2017-06-01] MEDS ORDERED: CHLORHEXIDINE GLUCONATE 2 % 1 PACK (2 CLOTHS) TOPICAL PRN ×2 (05:00→06:30)
[2017-06-01] MEDS ORDERED: SODIUM CHLORID 0.9% 500 ML IV PRN (05:00)
[2017-06-01] MEDS ORDERED: POVIDONE IODINE 5% (ANTISEPSIS KIT) 4 APPLICATIONS EACH NARE PRN ×2 (05:00→06:30)
[2017-06-01] MEDS ORDERED: LACTATED RINGER'S 1000 ML IV PRN ×2 (05:00→06:30)
[2017-06-01] MEDS: METOPROLOL TARTRATE 50 MG TAB PO SCH ×3 (05:57→21:51)
[2017-06-01 08:52] LABS: HEMATOCRIT 37.8 % (35.0-46.0); MEAN CELL VOLUME 85.4 FL (80.0-100.0); MEAN CORPUSCULAR HEMOGLOBIN 27.5 PG (27.0-34.0); MEAN CORPUSCULAR HGB CONC 32.2 % (32.0-36.0); PLATELET COUNT 299 TH/MM3 (150-450); RED BLOOD COUNT 4.42 MIL/MM3 (4.00-5.30); RED CELL DISTRIBUTION WIDTH 14.7 % (11.6-17.2); REVIEW FLAG FINAL; WHITE BLOOD COUNT 10.4 TH/MM3 (4.0-11.0)
[2017-06-01 09:06] LABS: BICARBONATE 23.4 MEQ/L (21.0-32.0); POTASSIUM 5.1 MEQ/L (3.5-5.1)
--- NOTE | 2017-06-01 12:26 | GIPROC ---
[facility] [address] [facility]. [facility], [address] EGD PROCEDURE REPORT EXAM DATE: 06/01/2017 PATIENT NAME: Rosalinda Edwards MR #: [id number] BIRTHDATE: 1950 ATTENDING: Mariam Thomas MD ORDER #: [id number] CUSHION ASSEMBLER: Louise Leggett RN STATUS: inpatient INDICATIONS: The patient is a 67 yr old female here for an EGD due to hematemesis PROCEDURE PERFORMED: EGD w/ biopsy MEDICATIONS: None and Per Anesthesia. TOPICAL ANESTHETIC: none CONSENT: The patient understands the risks and benefits of the procedure and understands that these risks include, but are not limited to: sedation, allergic reaction, infection, perforation and/or bleeding. Alternative means of evaluation and treatment include, among others: physical exam, x-rays, and/or surgical intervention. The patient elects to proceed with this endoscopic procedure. medical equipment was checked for proper function. Hand hygiene and appropriate measures for infection prevention was taken. After the risks, benefits and alternatives of the procedure were thoroughly explained, Informed consent was verified, confirmed and timeout was successfully executed by the treatment team. The patient was anesthetized with topical anesthesia and the endoscope was introduced through the mouth and advanced to the second portion of the duodenum. Retroflexed views revealed Covered with gastric secreations The gastroscope was then slowly withdrawn and removed. ESOPHAGUS: Multiple large non-bleeding, deep and clean-based ulcers were found in the mid esophagus and distal esophagus. Multiple biopsies were performed using cold forceps. Sample sent for histology. STOMACH: There was chronic moderate gastritis in the gastric antrum. Multiple biopsies were performed. DUODENUM: The duodenal mucosa appeared normal in the bulb and second portion of the duodenum. ADVERSE EVENTS: There were no complications. IMPRESSIONS: 1. large circumfrancial ulcer was found in the mid esophagus and distal esophagus, necrotic base, biopsies taken 2. There was chronic gastritis in the gastric antrum; multiple biopsies were performed 3. Retroflexed views revealed Covered with gastric secreations RECOMMENDATIONS: 1. Await biopsy results. Biopsy results will not be ready for 7-10 days. If you don't hear from us in two weeks, call our office for biopsy results. 2. Continue PPI PATIENT CONDITION: stable DISPOSITION: Observation REPEAT EXAM: NONE Mariam Thomas MD eSigned: Mariam Thomas MD 06/01/2017 12:26 PM cc: PATIENT NAME: Rosalinda Edwards MR#: [id number]
[2017-06-01] MEDS ORDERED: DO NOT ADM ANY ANTICOAGULANT DRUGS PRN (13:15)
[2017-06-01] MEDS: DOCUSATE SODIUM 50 MG/SENNA 8.6 MG TAB PO SCH ×2 (14:00→21:00)
[2017-06-01] MEDS: SODIUM CHLORIDE 0.9% FLUSH 10 ML FLUSH IV FLUSH SCH ×2 (14:00→21:52)
--- NOTE | 2017-06-01 14:03 | HHI.PR ---
Subjective Remarks Patient seen earlier this morning around 10. Will have EGD soon. Reports she is thirsty. No other complaints. Objective Vitals Vital Signs Date Time Temp Pulse Resp B/P (MAP) Pulse Ox O2 Delivery O2 Flow Rate FiO2 06/01/17 13:00 97.9 91 18 131/51 (77) 94 Nasal Cannula 3 06/01/17 12:45 90 17 112/53 (72) 96 Nasal Cannula 2 06/01/17 12:34 97.9 90 17 103/56 (72) 96 Simple Mask 6 06/01/17 12:00 97.7 86 20 119/62 (81) 94 06/01/17 11:11 98 Nasal Cannula 2 06/01/17 08:00 97.5 76 20 113/53 (73) 93 06/01/17 08:00 78 06/01/17 04:00 97.6 87 20 138/61 (86) 96 06/01/17 04:00 Nasal Cannula 2.00 06/01/17 03:48 80 06/01/17 01:16 83 06/01/17 00:10 Nasal Cannula 2.00 06/01/17 00:00 97.5 85 21 118/57 (77) 95 05/31/17 20:08 97.6 89 20 115/60 (78) 96 05/31/17 16:00 97.6 90 20 111/58 (75) 96 I/O 05/31/17 05/31/17 05/31/17 06/01/17 06/01/17 06/01/17 07:00 15:00 23:00 07:00 15:00 23:00 Intake Total 480 ml 60 ml Output Total 500 ml 700 ml 400 ml Balance -500 ml -220 ml -340 ml Intake Oral 480 ml 60 ml Output Urine Total 500 ml 700 ml 400 ml # Bowel Movements 1 0 Result Diagram: 06/01/17 0745 06/01/17 0745 Imaging Last Impressions Chest X-Ray 05/30/17 1825 Signed Impressions: Service Date/Time: Tuesday, May 30, 2017 18:56 - CONCLUSION: 1. Pulmonary edema pattern with bilateral effusions most characteristic of congestive heart failure. Tyler Ngo MD Abdomen/Pelvis CT 05/30/17 0000 Signed Impressions: Service Date/Time: Saturday, May 30, 2017 20:44 - CONCLUSION: 1. Extensive peritoneal and omental carcinomatosis as above reportedly secondary to an ovarian malignancy. Left adnexal mass and uterine mass similar to prior study from May 16. 2. Slight increase in size of left pleural effusion. 3. Moderate ascites, relatively stable. 4. Mild anasarca. Tyler Ngo MD Objective Remarks GENERAL: Patient is frail appearing. CARDIOVASCULAR: Normal rate and regular rhythm without murmurs, gallops, or rubs. RESPIRATORY: Poor respiratory efforts. Markedly diminished breath sounds at the bases bilaterally. GASTROINTESTINAL: Abdomen soft, non-tender, non-distended. Normal active bowel sounds MUSCULOSKELETAL: Extremities with 2+ bilateral lower extremity edema NEURO: Alert & Oriented x4 to person, place, time, situation. Moves all ext x4 PSYCH: Appropriate mood and affect. A/P Problem List: (1) Intractable nausea and vomiting ICD Code: R11.2 - Nausea with vomiting, unspecified (2) Hematemesis ICD Code: K92.0 - Hematemesis (3) UTI (urinary tract infection) ICD Code: N39.0 - Urinary tract infection, site not specified (4) Ovarian ca ICD Code: C56.9 - Malignant neoplasm of unspecified ovary (5) CHF (congestive heart failure) ICD Code: I50.9 - Heart failure, unspecified (6) DM (diabetes mellitus) ICD Code: E11.9 - Type 2 diabetes mellitus without complications Assessment and Plan 67-year-old female with recent diagnosis of ovarian cancer/uterine mass with extensive carcinomatosis Intractable NV: -CT Abd/Pelvis w/ ovarian/uterine mass and extensive carcinomatosis, ascites. -Most likely secondary to extensive ovarian cancer. -Continue supportive care with antiemetics. Ovarian CA: w/ Mets. - Patient follow with Dr. Contreras. 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 - Consult Dr. Contreras to assist with prognosis and treatment course. Dehydration -Improved. Discontinue IV fluid -Avoid nephrotoxins and continue to monitor creatinine. Hematemesis: Likely secondary to esophageal tear from significant nausea/ vomiting. -Continue with Protonix drip. Hemoglobin is stable. Continue to trend hemoglobin. -GI following with plan for EGD today. UTI: - U/a w/ UTI, s/p Rocephin in ER, continue w/ IV Abx. - Follow up urine cultures. Pulmonary edema and pleural effusion. -CXR w/ pulmonary edema and bilateral pleural effusion, the patient is asymptomatic. BNP is normal at 25. -Likely secondary to worsening fluid overload from carcinomatosis -Continue monitor closely. - 2D echo unremarkable DM: Sliding scale w/ Accu-Cheks. Hold home medications GI prophylaxis: PPI. Stool softener PRN constipation. DVT PPx: Eh Urena MD Jun 01, 2017 14:02
--- NOTE | 2017-06-01 15:03 | ECHRPT ---
Indication: HEART FAILURE CONCLUSIONS Mild concentric left ventricular hypertrophy. The left ventricular systolic function is grossly normal on limited imaging. Normal left ventricular size. The left atrial size is mildly dilated. Pleural effusion. BP: 118 / 57 HR: 80 Rhythm: Sinus MEASUREMENTS (Male / Female) Normal Values Technical Quality:Fair M-MODE LV Diastolic Diameter MM 4.7 cm 4.2 - 5.9 / 3.9 - 5.3 cm LV Systolic Diameter MM 2.9 cm LV Ejection Fraction MM Teich 68.2 % LV Cardiac Index MM Teich 2808.8 cm/minm IVS Diastolic Thickness MM 1.2 cm 0.6 - 1.0 / 0.6 - 0.9 cm LVPW Diastolic Thickness MM 1.1 cm 0.6 - 1.0 / 0.6 - 0.9 cm LV Relative Wall Thickness MM 0.5 0.24 - 0.42 / 0.22 - 0.42 LV Mass Index MM 102.0 g/m 49 - 115 / 43 - 95 g/m RV Diastolic Diameter MM 1.8 cm DOPPLER AV Peak Velocity 131.0 cm/s AV Peak Gradient 6.9 mmHg AV Mean Gradient 3.0 mmHg AV Velocity Time Integral 19.7 cm LVOT Peak Velocity 59.4 cm/s LVOT Peak Gradient 1.4 mmHg LVOT Velocity Time Integral 9.1 cm Mitral E Point Velocity 59.7 cm/s Mitral A Point Velocity 70.6 cm/s Mitral E to A Ratio 0.8 LV E' Lateral Velocity 5.9 cm/s Mitral E to LV E' Lateral Ratio 10.2 LV E' Septal Velocity 9.0 cm/s Mitral E to LV E' Septal Ratio 6.7 PV Peak Velocity 82.7 cm/s PV Peak Gradient 2.7 mmHg FINDINGS LEFT VENTRICLE Mild concentric left ventricular hypertrophy. The left ventricular systolic function is grossly normal on limited imaging. Normal left ventricular size. RIGHT VENTRICLE Normal right ventricular size and systolic function. LEFT ATRIUM The left atrial size is mildly dilated. RIGHT ATRIUM The right atrial size is normal. ATRIAL SEPTUM Normal atrial septal thickness without atrial level shunting by limited color doppler interrogation. AORTA The aortic root and proximal ascending aorta are normal in size on limited imaging. MITRAL VALVE Structurally normal mitral valve. No mitral valve stenosis or regurgitation. AORTIC VALVE Trileaflet aortic valve. No aortic valve stenosis or regurgitation. TRICUSPID VALVE Structurally normal tricuspid valve. No tricuspid valve stenosis or regurgitation. PULMONARY VALVE The pulmonary valve is not well visualized. VESSELS The inferior vena cava is normal in size. PERICARDIUM No pericardial effusion. OTHER FINDINGS Pleural effusion. Farrah Lott MD, FACC (Electronically Signed) Final Date:01 June 2017 15:02
--- NOTE | 2017-06-01 16:46 | HHI.HCPN ---
Palliative care consulted to assist with goals of care. Ms. Edwards is known to palliative care service from prior hospitalization. Ms. Edwards has always deferred to her daughter/health care surrogate for goals of care conversations. Spoke with daughter Judith. Tentatively family meeting scheduled for tomorrow Friday 06/01 at 330pm. Palliative care will continue to follow throughout hospitalization. Family has palliative care contact information. Will further address goals of care at family meeting. Susan Houston MSW, AD[employer]ION SOCIAL WORKER Jun 01, 2017 16:46
[2017-06-01] MEDS ORDERED: DEXTROSE 50% IN WATER 50 ML VIAL(D50) IV PUSH PRN (17:15)
[2017-06-01] MEDS ORDERED: GLUCAGON 1 MG/ML VIAL OTHER PRN (17:15)
[2017-06-01] MEDS: cefTRIAXone INJ 1,000 MG in SODIUM CHLORIDE 0.9% INJ 100 ML IV SCH (21:47)
[2017-06-01] MEDS: INSULIN ASPART SUPPLEMENTAL SCALE SQ SCH (21:53)
[2017-06-02] VITALS (7 sets, daily range): BP systolic 101–119; BP diastolic 49–70; PULSE 77–89; RESP 16–20; TEMP 97.1–97.9; O2SAT 95–99
[2017-06-02] MEDS: PANTOPRAZOLE INJ 80 MG in SODIUM CHLORIDE 0.9% INJ 100 ML IV SCH ×2 (01:46→12:37)
[2017-06-02] MEDS: SODIUM CHLOR 0.9% 1000 ML INJ 1,000 ML IV SCH ×2 (01:47→18:01)
[2017-06-02] MEDS: METOPROLOL TARTRATE 50 MG TAB PO SCH ×3 (06:08→21:53)
--- NOTE | 2017-06-02 08:05 | PD.CONS ---
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 She was found on imaging to have pelvic mass, adenopathy and carcinomatosis. 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 Patient's overall performance status was poor and she was sent rehab in hopes to gain strength and be able to start IV chemotherapy. She was readmitted from rehab due to nausea, vomiting and pain. She tells me that she was not able to participate in physical therapy during her stay in rehab. Patient Flow Coordinator oncology was consulted for the above findings. I explained to Mrs. Edwards that due to her poor performance status that we will be unable to give her IV chemo. She asked if surgery is an option. I explained that there is no way to remove all of the cancer because it is extensive. She is high risk for surgery because of her overall poor health and post operatively she would still require IV chemo which she would not tolerate because of her poor health. I talked wit her about Hospice and their role in care and comfort measures. She has a family meeting today with Palliative Care. Review of Systems Constitutional: COMPLAINS OF: Fatigue Gastrointestinal: COMPLAINS OF: Abdominal pain, Nausea, Vomiting Except as stated in HPI: all other systems reviewed are Neg Past Family Social History Allergies: Coded Allergies: No Known Allergies (Verified Allergy, Mild, 05/30/17) Past Medical History Metastatic Ovarian CVA DM HTN Past Surgical History Hernia Repair Cholecystectomy CT guided BX Reported Medications per EMR Active Ordered Medications Current Medications Sodium Chloride 1,000 ml @ 1,000 mls/hr Q1H IV Last administered on 19:09; Start 05/30/17 at 18:25; Stop 05/30/17 at 19:21; Status DC Sodium Chloride (NS Flush) 2 ml UNSCH PRN IVF FLUSH AFTER USING IV ACCESS Last administered on 05/30/17 19:10; Start 05/30/17 at 18:30; Stop 05/30/17 at 21 :52; Status DC Pantoprazole Sodium 80 mg/ Sodium Chloride 35 ml @ 420 mls/hr Q5M ONCE IV Last administered on 05/30/17 20:30; Start 05/30/17 at 18:25; Stop 05/30/17 at 18:30; Status DC Pantoprazole Sodium 80 mg/ Sodium Chloride 100 ml @ 10 mls/hr Q10H IV Last administered on 06/02/17 01:46; Start 05/30/17 at 18:25 Metoclopramide HCl (Reglan Inj) 10 mg ONCE ONCE IV PUSH Last administered on 05/30/17 19:10; Start 05/30/17 at 18:30; Stop 05/30/17 at 18:31; Status DC Ondansetron HCl (Zofran Inj) 4 mg ONCE ONCE IV PUSH Last administered on 05/30 20:40; Start 05/30/17 at 20:00; Stop 05/30/17 at 20:01; Status DC Furosemide (Lasix Inj) 40 mg ONCE ONCE IV PUSH Last administered on 21:35; Start 05/30/17 at 20:30; Stop 05/30/17 at 20:31; Status DC Iohexol (Omnipaque 350 Inj) 96 ml STK-MED ONCE IVCONTRAST Last administered on 05/30/17 20:47; Start 05/30/17 at 20:47; Stop 05/30/17 at 20:48; Status DC Ceftriaxone Sodium 1000 mg/ Sodium Chloride 100 ml @ 200 mls/hr Q24H IV Last administered on 06/01/17 21:47; Start 05/30/17 at 22:00 Trimethobenzamide HCl (Tigan Inj) 200 mg Q6H PRN IM NAUSEA/VOMITING; Start at 21:45 Sodium Chloride (NS Flush) 2 ml UNSCH PRN IV FLUSH FLUSH AFTER USING IV ACCESS Last administered on 06/01/17 06:27; Start 05/30/17 at 21:45 Sodium Chloride (NS Flush) 2 ml BID IV FLUSH Last administered on 06/02/17 08 :12; Start 05/31/17 at 09:00 Ondansetron HCl (Zofran Inj) 4 mg Q6H PRN IVP NAUSEA OR VOMITING Last administered on 06/01/17 06:27; Start 05/30/17 at 21:45 Acetaminophen (Tylenol) 650 mg Q6H PRN PO FEVER/PAIN SCALE 1 TO 2; Start 05/30 at 21:45 Acetaminophen/ Hydrocodone Bitart ([place] 5-325 Mg) 1 tab Q4H PRN PO PAIN SCALE 3 TO 5 Last administered on 05/31/17 22:34; Start 05/30/17 at 21:45 Morphine Sulfate (Morphine Inj) 2 mg Q3H PRN IV PAIN SCALE 6 TO 10; Start at 22:00 Senna/Docusate Sodium (Page-Colace) 1 tab BID PO Last administered on 08:12; Start 05/31/17 at 09:00 Magnesium Hydroxide (Milk Of Magnesia Liq) 30 ml Q12H PRN PO Mild constipation ; Start 05/30/17 at 21:45 Sennosides (Senokot) 17.2 mg Q12H PRN PO Moderate constipation; Start at 21:45 Bisacodyl (Dulcolax Supp) 10 mg DAILY PRN RECTAL SEVERE CONSITIPATION; Start 05/30/17 at 21:45 Lactulose (Lactulose Liq) 30 ml DAILY PRN PO SEVERE CONSITIPATION; Start 05/30 at 21:45 Dextrose (D50w (Vial) Inj) 50 ml UNSCH PRN IV PUSH HYPOGLYCEMIA-SEE COMMENTS; Start 05/30/17 at 21:45; Stop 06/01/17 at 17:19; Status DC Glucagon (Glucagon Inj) 1 mg UNSCH PRN OTHER HYPOGLYCEMIA-SEE COMMENTS; Start 05/30/17 at 21:45; Stop 06/01/17 at 17:19; Status DC Metoprolol Tartrate (Lopressor) 50 mg Q8HR PO Last administered on 06/02/17 06:08; Start 05/30/17 at 22:00 Dextrose/Sodium Chloride 500 ml @ 100 mls/hr BOLUS ONCE IV Last administered on 05/30/17 23:02; Start 05/30/17 at 21:45; Stop 05/31/17 at 02:44; Status DC Sodium Chloride 1,000 ml @ 50 mls/hr Q20H IV Last administered on 06/02/17 01:47; Start 05/31/17 at 09:15 Sodium Chloride 500 ml @ 500 mls/hr BOLUS ONCE IV ; Start 05/31/17 at 11:30; Stop 05/31/17 at 11:30; Status DC Lactated Ringer's 1,000 ml @ 30 mls/hr Q24H PRN IV SEE LABEL COMMENTS; Start 06/01/17 at 05:00; Stop 06/01/17 at 17:19; Status DC Sodium Chloride 500 ml @ 30 mls/hr [id number] PRN IV SEE LABEL COMMENTS; Start at 05:00; Stop 06/01/17 at 17:19; Status DC Povidone Iodine (Betadine 5% Antisepsis Kit) 1 applic LOCKSTITCH MACHINE OPERATOR PRN EACH NARE SEE LABEL COMMENTS; Start 06/01/17 at 05:00; Stop 06/01/17 at 17:19; Status DC Chlorhexidine Gluconate (Chlorhexidine 2% Cloth) 3 pack LOCKSTITCH MACHINE OPERATOR PRN TOPICAL SEE LABEL COMMENTS; Start 06/01/17 at 05:00; Stop 06/01/17 at 17:19; Status DC Lactated Ringer's 1,000 ml @ 30 mls/hr Q24H PRN IV SEE LABEL COMMENTS; Start 06/01/17 at 06:30; Stop 06/04/17 at 06:29 Povidone Iodine (Betadine 5% Antisepsis Kit) 1 applic LOCKSTITCH MACHINE OPERATOR PRN EACH NARE SEE LABEL COMMENTS; Start 06/01/17 at 06:30; Stop 06/01/17 at 17:19; Status DC Chlorhexidine Gluconate (Chlorhexidine 2% Cloth) 3 pack LOCKSTITCH MACHINE OPERATOR PRN TOPICAL SEE LABEL COMMENTS; Start 06/01/17 at 06:30; Stop 06/01/17 at 17:19; Status DC Fentanyl Citrate (fentaNYL INJ) 100 mcg STK-MED ONCE .ROUTE ; Start 06/01/17 at 12:39; Stop 06/01/17 at 12:40; Status DC Miscellaneous Information ALL NURSING DEPARTME... UNSCH PRN .XX SEE LABEL COMMENTS; Start 06/01/17 at 13:15; Stop 06/02/17 at 13:14 Dextrose (D50w (Vial) Inj) 50 ml UNSCH PRN IV PUSH HYPOGLYCEMIA-SEE COMMENTS; Start 06/01/17 at 17:15 Glucagon (Glucagon Inj) 1 mg UNSCH PRN OTHER HYPOGLYCEMIA-SEE COMMENTS; Start 06/01/17 at 17:15 Insulin Aspart (NovoLOG SUPPLEMENTAL SCALE) 1 ACHS SLIDING SCALE SQ Last administered on 06/02/17t 08:12; Start 06/01/17 at 21:00 Social History Negative for alcohol, tobacco or drugs. Physical Exam Vital Signs Vital Signs Date Time Temp Pulse Resp B/P (MAP) Pulse Ox O2 Delivery O2 Flow Rate FiO2 06/02/17 04:00 97.5 88 18 117/57 (77) 97 06/02/17 00:00 97.9 80 16 116/55 (75) 96 06/01/17 20:00 97.9 93 16 121/57 (78) 92 06/01/17 20:00 Nasal Cannula 3.00 06/01/17 16:00 97.2 76 20 113/52 (72) 97 06/01/17 14:13 97.4 91 20 119/59 (79) 96 06/01/17 13:00 97.9 91 18 131/51 (77) 94 Nasal Cannula 3 06/01/17 12:45 90 17 112/53 (72) 96 Nasal Cannula 2 06/01/17 12:34 97.9 90 17 103/56 (72) 96 Simple Mask 6 06/01/17 12:00 97.7 86 20 119/62 (81) 94 06/01/17 11:11 98 Nasal Cannula 2 06/01/17 08:00 97.5 76 20 113/53 (73) 93 06/01/17 08:00 78 Physical Exam GENERAL: frial and weak SKIN: No rashes, ecchymoses or lesions. Cool and dry. HEAD: Atraumatic. Normocephalic. No temporal or scalp tenderness. EYES: Pupils equal round and reactive. Extraocular motions intact. No scleral icterus. No injection or drainage. CARDIOVASCULAR: Regular rate and rhythm without murmurs, gallops, or rubs. RESPIRATORY: Clear to auscultation. Breath sounds equal bilaterally. GASTROINTESTINAL: Abdomen distended generalized tenderness. MUSCULOSKELETAL: Extremities without clubbing, cyanosis. Laboratory Date/Time Source Procedure Growth Status 05/30/17 20:30 Urine Random Urine Urine Culture - Final <10,000 CFU/ML GRAM NEGATIVE RATNA Complete Result Diagram: 06/01/17 0745 06/01/17 0745 Imaging Last Impressions Chest X-Ray 05/30/17 4590 Signed Impressions: Service Date/Time: Tuesday, May 30, 2017 18:56 - CONCLUSION: 1. Pulmonary edema pattern with bilateral effusions most characteristic of congestive heart failure. Tyler Ngo MD Abdomen/Pelvis CT 05/30/17 0000 Signed Impressions: Service Date/Time: Tuesday, May 30, 2017 20:44 - CONCLUSION: 1. Extensive peritoneal and omental carcinomatosis as above reportedly secondary to an ovarian malignancy. Left adnexal mass and uterine mass similar to prior study from May 16. 2. Slight increase in size of left pleural effusion. 3. Moderate ascites, relatively stable. 4. Mild anasarca. Tyler Ngo MD Assessment and Plan Problem List: (1) Nausea and vomiting ICD Codes: R11.2 - Nausea with vomiting, unspecified Plan: patient on liquid diet meds per EMR IV hydration and supportive care GI consulted and EGD performed BX taken, large ulcer found and chronic gastritis PPI awaiting bx results (2) Abdominal pain ICD Codes: R10.9 - Unspecified abdominal pain Status: Acute Plan: R/T tumor burden pain meds per EMR Palliative Care following (3) Ovarian ca ICD Codes: C56.9 - Malignant neoplasm of unspecified ovary Plan: readmission from rehab very poor performance status unable to give IV chemo d/t poor performance status surgery not recommended d/t extensive nature of disease and patient's overall poor performance status Palliative Care following with family meeting planned today Hospice recommended. Discussed Condition With Dr. Contreras Problem Qualifiers (1) Nausea and vomiting: Qualified Codes: R11.2 - Nausea with vomiting, unspecified (2) Abdominal pain: Qualified Codes: R10.84 - Generalized abdominal pain (3) Ovarian ca: Qualified Codes: C56.9 - Malignant neoplasm of unspecified ovary Teddy Etienne Jun 02, 2017 08:05
[2017-06-02] MEDS: INSULIN ASPART SUPPLEMENTAL SCALE SQ SCH ×4 (08:12→21:54)
[2017-06-02] MEDS: DOCUSATE SODIUM 50 MG/SENNA 8.6 MG TAB PO SCH ×2 (08:12→21:00)
[2017-06-02] MEDS: SODIUM CHLORIDE 0.9% FLUSH 10 ML FLUSH IV FLUSH SCH ×2 (08:12→21:52)
[2017-06-02 08:25] LABS: HEMATOCRIT 37.5 % (35.0-46.0); MEAN CELL VOLUME 85.4 FL (80.0-100.0); MEAN CORPUSCULAR HEMOGLOBIN 26.9 PG (27.0-34.0); MEAN CORPUSCULAR HGB CONC 31.5 % (32.0-36.0); PLATELET COUNT 333 TH/MM3 (150-450); RED CELL DISTRIBUTION WIDTH 14.9 % (11.6-17.2); REVIEW FLAG FINAL; WHITE BLOOD COUNT 12.1 TH/MM3 (4.0-11.0)
[2017-06-02 08:34] LABS: INTERNATIONAL NORMALIZED RATIO 1.1 RATIO; PROTHROMBIN TIME - PATIENT 11.4 SEC (9.8-11.6)
[2017-06-02 08:50] LABS: POTASSIUM 4.8 MEQ/L (3.5-5.1)
[2017-06-02 08:53] LABS: INDIRECT BILIRUBIN 0.1 MG/DL (0.0-0.8); TOTAL BILIRUBIN ADULT 0.2 MG/DL (0.2-1.0)
--- NOTE | 2017-06-02 10:21 | MB ---
cc: ILENE RICH MD DATE OF CONSULTATION 06/02/[address] Eh Velazquez. REASON FOR CONSULTATION Pelvic mass, omental mass, ascites, pulmonary nodules, elevated CA-125, biopsy-proven malignancy. This patient is seen, her findings are reviewed. She is counseled by me and examined by me in conjunction with our nurse practitioner (Teddy Etienne). I agree with her findings, assessment and plan of care. HISTORY OF PRESENT ILLNESS This is a 67-year-old female whom we recently met during hospitalization where the aforementioned findings were confirmed on exam and imaging. Biopsy was obtained of omental tumor which showed a poorly differentiated non-small cell carcinoma. She is readmitted now after having been discharged to rehab facility from her prior hospitalization but brought back to the hospital as her performance status further diminished and by report was not able to participate and did not have the strength to participate in rehab-based activities, was essentially bedridden. She is presented and admitted to the hospital with worsening of her underlying symptoms of abdominal distension, pain, overall fatigue, decreased appetite. She has had nausea, vomiting. At times there was blood in the emesis and she is admitted now for supportive care and reevaluation. PAST HISTORY, REVIEW OF SYSTEMS, MEDICAL HISTORY, MEDICATIONS, SURGERIES All reviewed and as are documented in the chart. My time spent with her was primarily on discussion trying to clarify her wishes, trying to answer questions and review the pros and cons of considering any intervention versus palliative care and/or Hospice care. PHYSICAL EXAMINATION VITAL SIGNS: On exam she is afebrile. Her vital signs are stable. GENERAL: She herself has markedly diminished performance status. She is mildly short of breath at rest. She wanted to be repositioned in bed as her backside is irritated but she did not have the strength to pull herself over on her side. I assisted in that endeavor, helped roll her to her side, put pillows behind her back and then she was still unable to bring her top leg over and in front of her bottom leg to help her stay in the side position. She was too weak so I had to assist in moving her leg. This is included as a testament to the magnitude of her diminished performance status. HEENT: Mucous membranes were dry. Her speech was a bit slow. LUNGS: Decreased air exchange at the bases. ABDOMEN: Her abdomen is markedly distended with palpable fullness in the epigastrium and positive fluid wave but nonacute. I explained to her why surgery is not advised, in fact it is I have believe contraindicated as she does not have the capacity to recover from surgery/anesthesia, quite possibly might not survive a large surgery and anesthesia and the extent to which the problem could be improved would be limited. Even if the majority of the pelvic and abdominal tumor were resected, it does not address the lung pulmonary nodules nor does it address some of the underlying fluid that will reaccumulated and even with surgery, chemotherapy would be necessary to try to suppress this problem. In fact chemotherapy is the cornerstone of trying to treat this problem if in fact treatment were considered. We reviewed the potential value of chemotherapy as well as the potential drawbacks. There are certainly side effects of chemotherapy and again I am concerned about her ability to take and tolerate chemotherapy given her diminished performance status, her poor nutrition, her inability to eat and to keep food down, all of which can complicate or increase the magnitude of chemotherapy-related complications. There is a family meeting scheduled with Palliative Care today 3:30. Her daughter helps in her decision-making and it will be helpful to have an understanding of issues discussed and decisions made at that meeting and, whereas we would try to honor her wish if she ever were in a situation to consider chemotherapy, even single-agent and/or dose reduced chemotherapy we could consider that but my impression at this time is that she is too sick from her underlying illness and from the chronicity of the underlying illness that I am concerned about her ability to tolerate any treatment at this time. I think it is reasonable to consider palliative care/Hospice care and in discussion with her when I presented her directly with the question, does she want to try to consider treatment even dose reduced or single-agent treatment versus staying as comfortable as possible, she clearly states that she just wants to stay as comfortable as possible such that my impression is that her wishes are in favor palliative care and hospice which is also the wishes that see expressed when we first met her during her previous hospitalization. She made a couple of dietary requests and these requests were passed on to her nursing care provider. More questions were answered and also, given the high volume of fluid in the pelvis and abdomen, she may be able to get some therapeutic relief/symptomatic relief with a paracentesis and she is in favor of that and so I will put in that request with Interventional Radiology as well. More discussion ensued. Questions were answered. She expressed good understanding. At least 20 minutes of this 30-minute [id number] encounter were spent in counseling and coordination of care. MD JD Castle/HESHAM /8:05 AM /10:00 AM
[2017-06-02] MEDS ORDERED: ALBUMIN HUMAN 25% 12.5GM-W/25GM FOR 37.5GM IV ONE (12:00)
[2017-06-02] MEDS ORDERED: ALBUMIN HUMAN 25% 25GM-W/12.5GM FOR 37.5GM IV ONE (12:00)
[2017-06-02] MEDS ORDERED: LIDOCAINE HCL 1% 20 ML VIAL ONE (12:22)
--- NOTE | 2017-06-02 14:24 | RADRPT ---
EXAM DATE/TIME: 06/02/2017 10:16 [facility] COMPARISON: No previous studies available for comparison. INDICATIONS : Ascites. MEDICAL HISTORY : Cardiovascular disease. Diabetes mellitus type 1. Carcinoma, ovarian.with metastatic disease. Hyperte nsion. Ascites. SURGICAL HISTORY : Cholecystectomy. ENCOUNTER: Initial ACUITY: 1 week PAIN SCORE: 6/10 LOCATION: Right lower quadrant FLUID: Total volume of 5,600 cc of clear, yellow fluid was removed. Fluid was discarded. Paracentesis was therapeutic only. Post procedure scanning reveals no hematoma or other complication. TECHNIQUE: 1. Ultrasound guidance for abdominal paracentesis. 2. Paracentesis. The risks, benefits, and alternatives to ultrasound guided paracentesis were explained to the patient in detail including the risk of bleeding and infection. Written and verbal informed consent was obt ained. With the patient on the ultrasound table, ultrasound imaging was used to select the most appropriate approach for paracentesis. Overlying skin was prepped and draped in the usual sterile fashion and wi th a local anesthetic, a dermatotomy was made with an 11 blade scalpel. A 6 [place] [id number] ca theter was introduced into the peritoneal cavity and fluid was collected. The patient tolerated the procedure well and left the ultrasound suite in stable condition. CONCLUSION: Uncomplicated ultrasound guided paracentesis. Milo Matute MD on June 02, 2017 at 14:21 Board Certified Radiologist. This report was verified electronically.
--- NOTE | 2017-06-02 15:12 | PD.CONS ---
Consult Service Palliative Care . Consult Requested By Dr. Giordano . Primary Care Physician Unknown . Reason for Consultation a. To assist with evaluation and management of symptoms including: abdominal pain, debility. dyspnea, decreased appetite, early satiety, N/V. b. To assist medical decision maker(s) with: better understanding of current medical conditions; weighing benefits/burdens of medical treatment options; making medical treatment decisions. . HPI History of Present Illness Ms. Edwards is a 67 year old female with past medical history of borderline diabetes, recent biopsy proven metastatic ovarian cancer. Previously admitted 05/16/17- 05/24/17 with severe abdominal pain found to have pelvic and adnexal masses. He underwent CT directed needle biopsy of pelvic mass which revealed poorly differentiated non-small cell malignancy with extensive necrosis. Patient's goals remained aggressive she was discharged to [facility] and rehab in hopes that she would be able to get strong enough to pursue treatment/ chemotherapy with Dr. Contreras. Patient presented to [facility] emergency department on 05/30/17 with severe abdominal pain in all 4 quadrants worsening over 2 weeks prior to presentation. Abdominal pain rated 7.5 out of 10. She reported abdominal bloating, nausea and vomiting. Notes indicate patient noted dark tarry emesis. She also reported increase shortness of breath and weakness. Upon arrival to the emergency departments findings included: * VS: temp 97.6, pulse 120, respiration 18, BP 153/76, oxygen saturation 98% on 2 L nasal cannula * WBC 13.8, hemoglobin 12.5, hematocrit 39.6, platelet 383, neutrophil 90% * PT 11.5, INR 1.1, PTT 30 * BUN 39, creatinine 1.0, glucose 160, sodium 140, potassium 5.1, chloride 108, carbon dioxide 20.2, GFR 55 * total protein 6.1, albumin 1.9 * total bilirubin 0.3, AST 22, ALT 9, alkaline phosphatase 136 * urinalysis positive for leukocyte esterase, bacteria, mucus, culture indicated - final results pending. * chest xray - pulmonary edema pattern with bilateral effusions characteristic of congestive heart failure. * CT scan abdomen/pelvis - extensive peritoneal and omental carcinomatosis, left adnexal mass measuring 13 cm and uterine mass measuring 10 cm, slight increase in size of left pleural effusion, moderate ascites, mild anasarca. Patient was admitted with intractable nausea vomiting and severe abdominal pain secondary to newly diagnosed ovarian cancer, UTI and congestive heart failure. Patient was started on ceftriaxone. Gastroenterology, Dr. Coles was consulted for hematemesis, nausea vomiting. Patient underwent EGD with biopsy on 06/01/17 with findings of large circumferential ulcer in the mid/distal esophagus with necrosis, biopsies taken, chronic gastritis, biopsies taken. Pathology pending. Has PRN Tigan 200 mg IM Q6 hours and Zofran 4mg IV every 6 hours PRN nausea/ vomiting. MATERIALS SCHEDULER oncology, Dr. Contreras was consulted who indicated patient is not a candidate for systemic chemotherapy or surgical intervention given poor nutritional and performance status and recommends hospice support. Patient underwent ultrasound guided paracentesis with removal of 5600 mL clear yellow fluid for pain relief. Hydrocodone 5/325mg every 4 hours PRN Pain, has only had one dose since admission. Palliative care was consulted to assist with symptom management, family communication and further clarification of treatment goals. . Function/Cognitive Trajectory Patient has had ongoing trajectory of decline over many months, recent brain cancer diagnosis, abdominal ascites, increased weakness, nausea and vomiting. She has required rehabilitation which does not appear to have increased her functional status. . Review of Systems Constitutional: COMPLAINS OF: Fatigue, Change in appetite (decreased), Generalized weakness Respiratory: COMPLAINS OF: Shortness of breath Cardiovascular: COMPLAINS OF: Dyspnea on Exertion Gastrointestinal: COMPLAINS OF: Abdominal pain, Nausea, Vomiting, Anorexia, Bloating Hematologic/Lymphatics: COMPLAINS OF: Bruising Neurologic: COMPLAINS OF: Poor Balance Psychiatric: COMPLAINS OF: Anxiety, Depression Other ROS: bedbound Past Family Social History Coded Allergies: No Known Allergies (Verified Allergy, Mild, 05/30/17) Past Medical History Metastatic Ovarian Cancer Diabetes Hypertension . Past Surgical History Hernia Repair Cholecystectomy . Reported Medications Reported Meds & Active Scripts Active Levemir Inj (Insulin Detemir) 1,000 unit/ 10 ML Vial 5 Units SQ BID Do not mix with any other Insulin. Sharpsafety Sharps Contai (Parenteral Therapy Supplies) 1 Mis Mis Ea .ROUTE DIRECTED Glucocom Test Strips (Blood Glucose Test Strips) 1 Kimberly Kimberly Ea .ROUTE DIRECTED Lancets 1 Mis Mis Ea .ROUTE DIRECTED Insulin Syringe/U-100/31G X 5/16" 1 ml 31 Gauge X 5/16" Mis Ea .ROUTE DIRECTED Glucocom Blood Glucose Mo W/Device (Device) 1 Kit Kit Kit .ROUTE DIRECTED Herbster (Hydrocodone-Acetaminophen) 5 Mg-325 Mg Tab 1 Tab PO Q4H PRN Protonix (Pantoprazole Sodium) 20 Mg Tab 20 Mg PO DAILY Lopressor (Metoprolol Tartrate) 50 Mg Tab 50 Mg PO Q8HR Reported Zofran Odt (Ondansetron Odt) 4 Mg Tab 4 Mg SL Q8HR PRN Phenergan Inj (Promethazine HCl) 25 Mg/Ml Inj 25 Mg IM Q8HR . Current Medications Medications (Trade) Dose Ordered Sig/Benita Route Start Time Stop Time Status Last Admin Pantoprazole Sodium 80 mg/ Sodium Chloride 100 ml @ 10 mls/hr Q10H IV 05/30/17 18:25 06/02/17 12:37 Ceftriaxone Sodium 1000 mg/ Sodium Chloride 100 ml @ 200 mls/hr Q24H IV 05/30/17 22:00 06/01/17 21:47 (Tigan Inj) 200 mg Q6H PRN IM 05/30/17 21:45 (NS Flush) 2 ml UNSCH PRN IV FLUSH 05/30/17 21:45 06/01/17 06:27 (NS Flush) 2 ml BID IV FLUSH 05/31/17 09:00 06/02/17 08:12 (Zofran Inj) 4 mg Q6H PRN IVP 05/30/17 21:45 06/01/17 06:27 (Tylenol) 650 mg Q6H PRN PO 05/30/17 21:45 (Herbster 5-325 Mg) 1 tab Q4H PRN PO 05/30/17 21:45 05/31/17 22:34 (Morphine Inj) 2 mg Q3H PRN IV 05/30/17 22:00 (Page-Colace) 1 tab BID PO 05/31/17 09:00 06/02/17 08:12 (Milk Of Magnesia Liq) 30 ml Q12H PRN PO 05/30/17 21:45 (Senokot) 17.2 mg Q12H PRN PO 05/30/17 21:45 (Dulcolax Supp) 10 mg DAILY PRN RECTAL 05/30/17 21:45 (Lactulose Liq) 30 ml DAILY PRN PO 05/30/17 21:45 (Lopressor) 50 mg Q8HR PO 05/30/17 22:00 06/02/17 12:46 Sodium Chloride 1,000 ml @ 50 mls/hr Q20H IV 05/31/17 09:15 06/02/17 01:47 Lactated Ringer's 1,000 ml @ 30 mls/hr Q24H PRN IV 06/01/17 06:30 06/04/17 06:29 (D50w (Vial) Inj) 50 ml UNSCH PRN IV PUSH 06/01/17 17:15 (Glucagon Inj) 1 mg UNSCH PRN OTHER 06/01/17 17:15 (NovoLOG SUPPLEMENTAL SCALE) 1 ACHS SLIDING SCALE SQ 06/01/17 21:00 06/02/17 13:01 Family History Familial history of diabetes. Patient's twin sister at the age of 41 from cervical cancer. Her mother from a heart attack. . Substance Use Tobacco: None known Alcohol: None known Prescription med abuse: None known Illicits: None known . Psychosocial History Patient is originally from [place], [place]. She was , but her approximately 30+ years ago from complications related to either the liver or the lungs. The patient had 2 sisters. Her twin sister in her 40s from cervical cancer; she is reportedly estranged from another sister whose last known address was in [place]. Patient has a daughter (Mary) and a son (Damon) . Her son lives in [place], and her daughter lives locally. The patient's daughter states her mother was always working when she was growing up, trying to support the family. 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 The patient currently lives alone with her cat , Dante. . Spiritual/Cultural Factors Confucianist olesya . Health Care Surrogate: Copy in medical record Date completed: 05/21/17 . Health Care Surrogate(s): Patient completed designation of healthcare surrogate on 05/21/17 naming her daughter Mary Edwards as primary HCS and son Damon Bañuelos as alternate HCS. . Documented care wishes: No written living will. . Today's verbally stated goals: Desires NO CODE and hospice support at home. . Family/friends goals: Daughter supports patient wishes. . Ethical and Legal Issues No known ethical issues impacting care at this time. Patient is currently capacitated to make her own health care decisions. Patient completed designation of healthcare surrogate on 05/21/17 naming her daughter Mary Edwards as primary HCS and son Damon Bañuelos as alternate HCS. . Physical Exam Vital Signs Date Time Temp Pulse Resp B/P (MAP) Pulse Ox O2 Delivery O2 Flow Rate FiO2 06/02/17 12:00 97.2 89 20 117/55 (75) 97 06/02/17 10:37 97.1 89 20 112/70 (84) 98 06/02/17 08:10 Nasal Cannula 3.00 06/02/17 08:00 97.2 80 20 108/53 (71) 97 06/02/17 04:00 89 06/02/17 04:00 97.5 88 18 117/57 (77) 97 06/02/17 00:00 97.9 80 16 116/55 (75) 96 06/02/17 00:00 79 06/01/17 20:00 97.9 93 16 121/57 (78) 92 06/01/17 20:00 92 06/01/17 20:00 Nasal Cannula 3.00 06/01/17 16:00 97.2 76 20 113/52 (72) 97 Exam CONSTITUTIONAL/GENERAL: This is an elderly, frail, chronically ill patient, in no apparent distress. SKIN: No jaundice, rashes, or lesions. Ecchymoses on upper extremities. No wounds seen anteriorly. Skin temperature appropriate. Not diaphoretic. HEAD: Atraumatic. Normocephalic. EYES: Pupils equal and round and reactive. Extraocular motions intact. No scleral icterus. No injection or drainage. Fundi not examined. ENT: Hearing grossly normal. Nose without bleeding or purulent drainage. Dry mucous membranes, poor dentition. NECK: Trachea midline. CARDIOVASCULAR: Regular rate and rhythm without murmurs, gallops, or rubs. RESPIRATORY/CHEST: Poor respiratory effort and weak cough noted. Breath sounds diminished bilaterally. GASTROINTESTINAL: Abdomen soft, mildly tender to light palpation, distended. + ascites. Bowel sounds present. GENITOURINARY: Without palpable bladder distension. MUSCULOSKELETAL: Extremities with trace edema. LYMPHATICS: No palpable cervical or supraclavicular adenopathy. NEUROLOGICAL: Awake and alert. Generalized weakness noted. PSYCHIATRIC: Appropriately tearful with difficult conversation. . Diagnostic Tests Laboratory Laboratory Tests Test 05/30/17 19:00 05/30/17 20:30 05/31/17 08:23 06/01/17 07:45 White Blood Count 13.8 TH/MM3 (4.0-11.0) 11.8 TH/MM3 (4.0-11.0) 10.4 TH/MM3 (4.0-11.0) Red Blood Count 4.67 MIL/MM3 (4.00-5.30) 4.56 MIL/MM3 (4.00-5.30) 4.42 MIL/MM3 (4.00-5.30) Hemoglobin 12.5 GM/DL (11.6-15.3) 12.3 GM/DL (11.6-15.3) 12.1 GM/DL (11.6-15.3) Hematocrit 39.6 % (35.0-46.0) 38.7 % (35.0-46.0) 37.8 % (35.0-46.0) Mean Corpuscular Volume 84.8 FL (80.0-100.0) 84.8 FL (80.0-100.0) 85.4 FL (80.0-100.0) Mean Corpuscular Hemoglobin 26.8 PG (27.0-34.0) 27.0 PG (27.0-34.0) 27.5 PG (27.0-34.0) Mean Corpuscular Hemoglobin Concent 31.6 % (32.0-36.0) 31.8 % (32.0-36.0) 32.2 % (32.0-36.0) Red Cell Distribution Width 14.4 % (11.6-17.2) 14.6 % (11.6-17.2) 14.7 % (11.6-17.2) Platelet Count 383 TH/MM3 (150-450) 360 TH/MM3 (150-450) 299 TH/MM3 (150-450) Mean Platelet Volume 8.4 FL (7.0-11.0) 8.1 FL (7.0-11.0) 8.6 FL (7.0-11.0) Neutrophils (%) (Auto) 90.0 % (16.0-70.0) 85.8 % (16.0-70.0) Lymphocytes (%) (Auto) 5.0 % (9.0-44.0) 7.5 % (9.0-44.0) Monocytes (%) (Auto) 4.9 % (0.0-8.0) 6.5 % (0.0-8.0) Eosinophils (%) (Auto) 0.0 % (0.0-4.0) 0.1 % (0.0-4.0) Basophils (%) (Auto) 0.1 % (0.0-2.0) 0.1 % (0.0-2.0) Neutrophils # (Auto) 12.4 TH/MM3 (1.8-7.7) 10.1 TH/MM3 (1.8-7.7) Lymphocytes # (Auto) 0.7 TH/MM3 (1.0-4.8) 0.9 TH/MM3 (1.0-4.8) Monocytes # (Auto) 0.7 TH/MM3 (0-0.9) 0.8 TH/MM3 (0-0.9) Eosinophils # (Auto) 0.0 TH/MM3 (0-0.4) 0.0 TH/MM3 (0-0.4) Basophils # (Auto) 0.0 TH/MM3 (0-0.2) 0.0 TH/MM3 (0-0.2) CBC Comment DIFF FINAL DIFF FINAL Differential Comment Prothrombin Time 11.5 SEC (9.8-11.6) Prothromb Time International Ratio 1.1 RATIO Activated Partial Thromboplast Time 30.0 SEC (24.3-30.1) Blood Urea Nitrogen 39 MG/DL (7-18) 39 MG/DL (7-18) 36 MG/DL (7-18) Creatinine 1.00 MG/DL (0.50-1.00) 1.20 MG/DL (0.50-1.00) 0.93 MG/DL (0.50-1.00) Random Glucose 160 MG/DL (74-106) 161 MG/DL (74-106) 123 MG/DL (74-106) Total Protein 6.1 GM/DL (6.4-8.2) 6.2 GM/DL (6.4-8.2) Albumin 1.9 GM/DL (3.4-5.0) 1.8 GM/DL (3.4-5.0) Calcium Level 8.3 MG/DL (8.5-10.1) 8.3 MG/DL (8.5-10.1) 8.0 MG/DL (8.5-10.1) Alkaline Phosphatase 136 U/L (45-117) 126 U/L (45-117) Aspartate Amino Transf (AST/SGOT) 22 U/L (15-37) 21 U/L (15-37) Alanine Aminotransferase (ALT/SGPT) 9 U/L (10-53) 9 U/L (10-53) Total Bilirubin 0.3 MG/DL (0.2-1.0) 0.4 MG/DL (0.2-1.0) Sodium Level 140 MEQ/L (136-145) 141 MEQ/L (136-145) 141 MEQ/L (136-145) Potassium Level 5.1 MEQ/L (3.5-5.1) 5.4 MEQ/L (3.5-5.1) 5.1 MEQ/L (3.5-5.1) Chloride Level 108 MEQ/L (98-107) 108 MEQ/L (98-107) 108 MEQ/L (98-107) Carbon Dioxide Level 20.2 MEQ/L (21.0-32.0) 22.6 MEQ/L (21.0-32.0) 23.4 MEQ/L (21.0-32.0) Anion Gap 12 MEQ/L (5-15) 10 MEQ/L (5-15) 10 MEQ/L (5-15) Estimat Glomerular Filtration Rate 55 ML/MIN (>89) 45 ML/MIN (>89) 60 ML/MIN (>89) B-Type Natriuretic Peptide 25 PG/ML (0-100) Lipase 101 U/L (73-393) Urine Color YELLOW (YELLW/STRAW) Urine Turbidity CLEAR (CLEAR) Urine pH 5.5 (5.0-8.5) Urine Specific [place] 1.017 (1.002-1.035) Urine Protein TRACE mg/dL (NEG-TRACE) Urine Glucose (UA) NEG mg/dL (NEG) Urine Ketones NEG mg/dL (NEG) Urine Occult Blood NEG (NEG) Urine Nitrite NEG (NEG) Urine Bilirubin NEG (NEG) Urine Urobilinogen LESS THAN 2.0 MG/DL (LESS Urine Leukocyte Esterase MOD (NEG) Urine RBC 2 /hpf (0-3) Urine WBC 12 /hpf (0-5) Urine Bacteria RARE /hpf (NONE) Urine Hyaline Casts 7 /lpf (RARE) Urine Mucus FEW /lpf (OCC) Microscopic Urinalysis Comment CULTURE INDICATED Lactic Acid Level 1.6 mmol/L (0.4-2.0) Test 06/02/17 07:53 06/02/17 07:55 Prothrombin Time 11.4 SEC (9.8-11.6) Prothromb Time International Ratio 1.1 RATIO White Blood Count 12.1 TH/MM3 (4.0-11.0) Red Blood Count 4.40 MIL/MM3 (4.00-5.30) Hemoglobin 11.8 GM/DL (11.6-15.3) Hematocrit 37.5 % (35.0-46.0) Mean Corpuscular Volume 85.4 FL (80.0-100.0) Mean Corpuscular Hemoglobin 26.9 PG (27.0-34.0) Mean Corpuscular Hemoglobin Concent 31.5 % (32.0-36.0) Red Cell Distribution Width 14.9 % (11.6-17.2) Platelet Count 333 TH/MM3 (150-450) Mean Platelet Volume 8.6 FL (7.0-11.0) Blood Urea Nitrogen 34 MG/DL (7-18) Creatinine 0.92 MG/DL (0.50-1.00) Random Glucose 146 MG/DL (74-106) Total Protein 5.8 GM/DL (6.4-8.2) Albumin 1.7 GM/DL (3.4-5.0) Calcium Level 8.0 MG/DL (8.5-10.1) Alkaline Phosphatase 125 U/L (45-117) Aspartate Amino Transf (AST/SGOT) 20 U/L (15-37) Alanine Aminotransferase (ALT/SGPT) 6 U/L (10-53) Total Bilirubin 0.2 MG/DL (0.2-1.0) Direct Bilirubin 0.1 MG/DL (0.0-0.2) Sodium Level 141 MEQ/L (136-145) Potassium Level 4.8 MEQ/L (3.5-5.1) Chloride Level 108 MEQ/L (98-107) Carbon Dioxide Level 23.0 MEQ/L (21.0-32.0) Anion Gap 10 MEQ/L (5-15) Estimat Glomerular Filtration Rate 61 ML/MIN (>89) Indirect Bilirubin 0.1 MG/DL (0.0-0.8) Result Diagram: 06/02/17 0755 06/02/17 0755 Microbiology Microbiology Date/Time Source Procedure Growth Status 05/30/17 20:30 Urine Random Urine Urine Culture - Final <10,000 CFU/ML GRAM NEGATIVE RATNA Complete Imaging Last Impressions Chest X-Ray 05/30/17 1825 Signed Impressions: Service Date/Time: Tuesday, May 30, 2017 18:56 - CONCLUSION: 1. Pulmonary edema pattern with bilateral effusions most characteristic of congestive heart failure. Tyler Ngo MD Abdomen/Pelvis CT 05/30/17 0000 Signed Impressions: Service Date/Time: Tuesday, May 30, 2017 20:44 - CONCLUSION: 1. Extensive peritoneal and omental carcinomatosis as above reportedly secondary to an ovarian malignancy. Left adnexal mass and uterine mass similar to prior study from May 16. 2. Slight increase in size of left pleural effusion. 3. Moderate ascites, relatively stable. 4. Mild anasarca. Tyler Ngo MD . Procedures * 06/02/17 - US guided paracentesis for removal of 5.6 liters. . Patient/Family Conference Present at Family Conference: Met with patient and daughter, Mary. Also present Susan Houston LCSW and Susan Houston LCSW. . Family Conference Time (mins): 60 Family Conference Location: Bedside Issues Discussed: * Palliative care role, purpose, approach * Additional medical, psychosocial, and spiritual history * Patients general health, functional status, and cognitive changes in the months leading up to the current hospitalization * Patient/family understanding of the current medical problems * Patient/family understanding of prognosis * Patients goals of care as best understood from advance directives and/or conversations and/or values * Current medical treatment options and benefits/burdens of those options * Likely scenarios comparing ongoing aggressive care with a transition to comfort measures only * Questions answered to the best of my ability * Palliative care contact information provided In summary patient elects NO CODE and transition to comfort measures with hospice support. She hopes to return home with hospice. Daughter and friend are willing to assist in providing care in the home. . Assessment and Plan Disease Oriented Problem List: (1) Intractable nausea and vomiting (2) DM (diabetes mellitus) (3) Ovarian ca Symptom Scale: (1) Abdominal pain 0-10 Scale: 7 (2) Nausea and vomiting 0-10 Scale: 0 (3) Dyspnea 0-10 Scale: 0 (4) Debility 0-10 Scale: Unable to quantify (5) Decreased appetite 0-10 Scale: Unable to quantify Comment: Not eating for weeks, only taking liquids, small amounts. (6) Early satiety 0-10 Scale: Unable to quantify Comment: can only tolerate sips at a time. (7) Ascites 0-10 Scale: Unable to quantify Comment: due to malignancy, post paracentesis 5.6 liters on 06/02/17. . Pertinent Non-Medical Issues Psychosocial:Patient is originally from [place], [place]. She was , but her approximately 30+ years ago from complications related to either the liver or the lungs. The patient had 2 sisters. Her twin sister in her 40s from cervical cancer; she is reportedly estranged from another sister whose last known address was in [place]. Patient has a daughter (Mary) and a son (Damon). Her son lives in [place], and her daughter lives locally. The patient's daughter states her mother was always working when she was growing up, trying to support the family. 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 The patient currently lives alone with her cat, Dante. Spiritual: Confucianist olesya Legal: Patient is currently capacitated to make her own health care decisions. Patient completed designation of healthcare surrogate on 05/21/17 naming her daughter Mary Edwards as primary HCS and son Damon Bañuelos as alternate HCS. Ethical issues impacting care: No known ethical issues impacting care at this time. . Important Contacts * Mary Edwards, daughter primary HCS: [phone] * Damon Bañuelos son/alternate HCS: [phone] . Prognosis Patient is a 67-year-old female recently diagnosed with an ovarian and uterine mass suspicious for carcinoma, pulmonary metastasis and carcinomatosis status post CT-guided biopsy revealed poorly differentiated non-small cell malignancy with extensive necrosis. MATERIALS SCHEDULER oncology has determined patient is not a candidate for systemic chemotherapy or surgical intervention given poor traditional and performance status. Overall prognosis is poor. Would be hospice appropriate if goals are comfort oriented. . Code Status: No Code Plan * NO CODE * Patient is currently capacitated to make her own health care decisions. Patient completed designation of healthcare surrogate on 05/21/17 naming her daughter Mary Edwards as primary HCS and son Damon Bañuelos as alternate HCS. * Family meeting: In summary patient elects NO CODE and transition to comfort measures with hospice support. She hopes to return home with hospice. Daughter supports patient decisions. Daughter and friend are willing to assist in providing care in the home. * Hospice consulted, daughter tearful and requests to meet them on 06/03/17. She wants to be present at time of hospice meeting. * SYMPTOMS: Abdominal pain- secondary to extensive peritoneal carcinomatosis, adnexal and pelvic mass secondary to metastatic ovarian cancer. Status post paracentesis on 06/01/17.Early satiety and decreased appetite: due to mets ovarian cancer. Will not likely improve. Debility: due to ovarian cancer, not a candidate for treatment. N/V; Currently controlled. Would consider use of Haloperidol or Lorazepam in place of Tigan given IM route. Dyspnea: Improved after paracentesis 06/02/17. Ascites: due to ovarian cancer will likely need ongoing intermittent therapeutic paracentesis for comfort. * Palliative care number provided. Will continue to monitor patient throughout this hospitalization to establish trust, assist with symptom management and clarification of medical treatment goals. . Thank you for the opportunity to participate in the care of Ms. Edwards. Attestation To help prompt me to consider important information that might be impacting today's encounter and assessment, information from prior notes written by myself or my colleagues may have been "brought forward" into today's note. My signature on this note, however, is an attestation that I personally performed the exam, history, and/or decision-making noted today, and, unless otherwise indicated, the interactions with patient, family, and staff as well as the review of records all occurred today. I also attest that the listed assessment and stated plan reflect my best clinical judgment today based on the combination of historical information, prior notes, and today's exam/ interactions. When time spent is documented, it refers only to time spent today by the signer, or if indicated, combined time spent today by collaborating physician/nurse practitioner. . Haydee Ramirez Jun 02, 2017 15:12
--- NOTE | 2017-06-02 15:25 | HHI.GIFU ---
Subjective Remarks Still have complaints of heartburn type symptoms when drinking, possible some dysphasia. Still on IV Protonix drip Sipping on liquids most of the time Afebrile (Tangela Steiner) Objective Vitals I&O Vital Signs Date Time Temp Pulse Resp B/P (MAP) Pulse Ox O2 Delivery O2 Flow Rate FiO2 06/02/17 12:00 97.2 89 20 117/55 (75) 97 06/02/17 10:37 97.1 89 20 112/70 (84) 98 06/02/17 08:10 Nasal Cannula 3.00 06/02/17 08:00 97.2 80 20 108/53 (71) 97 06/02/17 04:00 89 06/02/17 04:00 97.5 88 18 117/57 (77) 97 06/02/17 00:00 97.9 80 16 116/55 (75) 96 06/02/17 00:00 79 06/01/17 20:00 97.9 93 16 121/57 (78) 92 06/01/17 20:00 92 06/01/17 20:00 Nasal Cannula 3.00 06/01/17 16:00 97.2 76 20 113/52 (72) 97 I/O 06/01/17 06/01/17 06/01/17 06/02/17 06/02/17 06/02/17 06:59 14:59 22:59 06:59 14:59 22:59 Intake Total 60 ml 240 ml 250 ml Output Total 400 ml 600 ml Balance -340 ml 240 ml 250 ml -600 ml Intake Oral 60 ml 240 ml Other 250 ml Output Urine Total 400 ml 600 ml # Bowel Movements 0 Laboratory Laboratory Tests Test 06/02/17 07:53 06/02/17 07:55 Prothrombin Time 11.4 Prothromb Time International Ratio 1.1 White Blood Count 12.1 Red Blood Count 4.40 Hemoglobin 11.8 Hematocrit 37.5 Mean Corpuscular Volume 85.4 Mean Corpuscular Hemoglobin 26.9 Mean Corpuscular Hemoglobin Concent 31.5 Red Cell Distribution Width 14.9 Platelet Count 333 Mean Platelet Volume 8.6 Blood Urea Nitrogen 34 Creatinine 0.92 Random Glucose 146 Total Protein 5.8 Albumin 1.7 Calcium Level 8.0 Alkaline Phosphatase 125 Aspartate Amino Transf (AST/SGOT) 20 Alanine Aminotransferase (ALT/SGPT) 6 Total Bilirubin 0.2 Direct Bilirubin 0.1 Sodium Level 141 Potassium Level 4.8 Chloride Level 108 Carbon Dioxide Level 23.0 Anion Gap 10 Estimat Glomerular Filtration Rate 61 Indirect Bilirubin 0.1 Date/Time Source Procedure Growth Status 05/30/17 20:30 Urine Random Urine Urine Culture - Final <10,000 CFU/ML GRAM NEGATIVE RATNA Complete Imaging Last Impressions Cyst Biopsy Asp-Paracentesis US 06/02/17 0000 Signed Impressions: Service Date/Time: Friday, June 02, 2017 10:16 - CONCLUSION: Uncomplicated ultrasound guided paracentesis. Milo Matute MD Chest X-Ray 05/30/17 1825 Signed Impressions: Service Date/Time: Tuesday, May 30, 2017 18:56 - CONCLUSION: 1. Pulmonary edema pattern with bilateral effusions most characteristic of congestive heart failure. Tyler Ngo MD Abdomen/Pelvis CT 05/30/17 0000 Signed Impressions: Service Date/Time: Tuesday, May 30, 2017 20:44 - CONCLUSION: 1. Extensive peritoneal and omental carcinomatosis as above reportedly secondary to an ovarian malignancy. Left adnexal mass and uterine mass similar to prior study from May 16. 2. Slight increase in size of left pleural effusion. 3. Moderate ascites, relatively stable. 4. Mild anasarca. Tyler Ngo MD Physical Exam HEENT: Pupils round and reactive to light; normocephalic; atraumatic; no jaundice. Throat is clear. NECK: Neck is supple, no JVD, no lymphadenopathy. CHEST: Chest is clear, low volumes CARDIAC: Regular rate and rhythm with no murmur gallop or rubs. ABDOMEN: Obese, round Soft, nondistended, nontender; no hepatosplenomegaly; bowel sounds active EXTREMITIES: No clubbing, cyanosis, or edema. SKIN: Normal; no rash; no jaundice. 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 (Tangela Steiner) Assessment and Plan Plan ASSESSMENT: - Hematemesis. Patient with nausea and vomiting x 2 weeks with specks of blood noted in vomit. EGD done on 06-01 shows large circumfrancial ulcer was found in the mid esophagus and distal esophagus, necrotic base, biopsies taken chronic gastritis in the gastric antrum; multiple biopsies were performed, Retroflexed views revealed Covered with gastric secreations Patient still has complaints of dysphasia and heartburn. Discussed with patient and her daughter the findings of the EGD with multiple ulcers, patient is encouraged to continue to drink soft non-acid liquids which could include full liquids. Currently left IV Protonix in place - Ovarian CA, w/ Mets. Followed by Dr. Contreras. 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 Pending possible chemo/surgical intervention. Patient is post paracentesis on 06-02 PLAN: Diet - PPI maintain IV for now - Monitor HH, transfuse as needed - Notify GI of active bleeding - Anti-emetics - Supportive care - Further recommendations to follow based on results of above Patient seen and examined by Dr. Thomas and myself and this note is written on his behalf. (Tangela Steiner) Physician Comments Seen and examined, plan as above. Will follow up with you. (Mariam Thomas MD) Tangela Steiner Jun 02, 2017 15:25 Mariam Thomas MD Jun 03, 2017 03:28
--- NOTE | 2017-06-02 19:17 | HHI.PR ---
Subjective Remarks Patient seen around 1 PM. Patient underwent therapeutic paracentesis. She reports some improvement of her symptoms. Still has some midepigastric discomfort with eating. Patient and family will meet with palliative care today. Objective Vitals Vital Signs Date Time Temp Pulse Resp B/P (MAP) Pulse Ox O2 Delivery O2 Flow Rate FiO2 06/02/17 16:00 79 06/02/17 16:00 97.7 77 20 101/49 (66) 99 06/02/17 12:00 97.2 89 20 117/55 (75) 97 06/02/17 10:37 97.1 89 20 112/70 (84) 98 06/02/17 08:10 Nasal Cannula 3.00 06/02/17 08:00 97.2 80 20 108/53 (71) 97 06/02/17 04:00 89 06/02/17 04:00 97.5 88 18 117/57 (77) 97 06/02/17 00:00 97.9 80 16 116/55 (75) 96 06/02/17 00:00 79 06/01/17 20:00 97.9 93 16 121/57 (78) 92 06/01/17 20:00 92 06/01/17 20:00 Nasal Cannula 3.00 I/O 06/01/17 06/01/17 06/01/17 06/02/17 06/02/17 06/02/17 07:00 15:00 23:00 07:00 15:00 23:00 Intake Total 60 ml 240 ml 250 ml Output Total 400 ml 600 ml 450 ml Balance -340 ml 240 ml 250 ml -600 ml -450 ml Intake Oral 60 ml 240 ml Other 250 ml Output Urine Total 400 ml 600 ml 450 ml # Bowel Movements 0 Result Diagram: 06/02/17 0755 06/02/17 0755 Objective Remarks GENERAL: Patient is frail appearing. CARDIOVASCULAR: Normal rate and regular rhythm without murmurs, gallops, or rubs. RESPIRATORY: Poor respiratory efforts. Markedly diminished breath sounds at the bases bilaterally. GASTROINTESTINAL: Abdomen with mild tenderness in the midepigastric region. Normal active bowel sounds MUSCULOSKELETAL: Extremities with trace bilateral lower extremity edema NEURO: Alert & Oriented x4 to person, place, time, situation. Moves all ext x4 PSYCH: Appropriate mood and affect. A/P Problem List: (1) Intractable nausea and vomiting ICD Code: R11.2 - Nausea with vomiting, unspecified (2) Hematemesis ICD Code: K92.0 - Hematemesis (3) UTI (urinary tract infection) ICD Code: N39.0 - Urinary tract infection, site not specified (4) Ovarian ca ICD Code: C56.9 - Malignant neoplasm of unspecified ovary (5) CHF (congestive heart failure) ICD Code: I50.9 - Heart failure, unspecified (6) DM (diabetes mellitus) ICD Code: E11.9 - Type 2 diabetes mellitus without complications Assessment and Plan 67-year-old female with recent diagnosis of ovarian cancer/uterine mass with extensive carcinomatosis Intractable NV/Hematemesis: Likely combination of cancer burden and esophageal ulcer-CT Abd/Pelvis w/ ovarian/uterine mass and extensive carcinomatosis, ascites. -Continue with Protonix drip. Hemoglobin is stable. Continue to trend hemoglobin. -Appreciate GI following. -Some improvement in pain after paracentesis. Ovarian CA: w/ Mets. - Patient follow with Dr. Contreras. 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 - Appreciate [employer] UP ME[employer] WINDING MACHINES oncology following. Patient is leaning more toward palliative care at this point as she is a very poor candidate for any treatment at this point. -Palliative care consulted and planning to meet with family today. Abnormal urinalysis: Urine culture is negative. - Discontinue antibiotics Pulmonary edema and pleural effusion. -CXR w/ pulmonary edema and bilateral pleural effusion, the patient is asymptomatic. BNP is normal at 25. -Likely secondary to worsening fluid overload from carcinomatosis -Continue monitor closely. - 2D echo unremarkable DM: Sliding scale w/ Accu-Cheks. Hold home medications GI prophylaxis: PPI. Stool softener PRN constipation. DVT PPx: Lovenox Problem Qualifiers (1) Ovarian ca: Qualified Codes: C56.9 - Malignant neoplasm of unspecified ovary Eh Velazquez MD Jun 02, 2017 19:17
[2017-06-03] VITALS: BP 105/53; PULSE 74; PULSE 84; RESP 16; TEMP 97.7; O2SAT 93
[2017-06-03] MEDS: PANTOPRAZOLE INJ 80 MG in SODIUM CHLORIDE 0.9% INJ 100 ML IV SCH ×2 (01:34→13:03)
[2017-06-03 04:00] VITALS: BP 109/65; PULSE 83; PULSE 84; RESP 16; TEMP 97.9; O2SAT 96
[2017-06-03] MEDS: METOPROLOL TARTRATE 50 MG TAB PO SCH ×3 (05:58→21:05)
[2017-06-03 08:00] VITALS: BP 111/53; PULSE 92; PULSE 94; RESP 20; TEMP 97.6; O2SAT 92
[2017-06-03] MEDS: INSULIN ASPART SUPPLEMENTAL SCALE SQ SCH ×4 (08:00→21:00)
--- NOTE | 2017-06-03 08:37 | HHI.PR ---
Subjective Remarks ill looking but in no acute distress. pain is minimal. no nausea or vomiting. Objective Vitals Vital Signs Date Time Temp Pulse Resp B/P (MAP) Pulse Ox O2 Delivery O2 Flow Rate FiO2 06/03/17 04:00 97.9 84 16 109/65 (80) 96 06/03/17 04:00 83 06/03/17 00:00 74 06/03/17 00:00 97.7 84 16 105/53 (70) 93 06/02/17 20:00 97.5 84 16 119/58 (78) 95 06/02/17 20:00 Nasal Cannula 3.00 06/02/17 20:00 87 06/02/17 16:00 79 06/02/17 16:00 97.7 77 20 101/49 (66) 99 06/02/17 12:00 97.2 89 20 117/55 (75) 97 06/02/17 10:37 97.1 89 20 112/70 (84) 98 I/O 06/02/17 06/02/17 06/02/17 06/03/17 06/03/17 06/03/17 07:00 15:00 23:00 07:00 15:00 23:00 Intake Total 319 ml 75 ml Output Total 600 ml 450 ml 600 ml Balance 319 ml -600 ml -450 ml -525 ml IV Total 319 ml 75 ml Output Urine Total 600 ml 450 ml 600 ml # Bowel Movements 1 Result Diagram: 06/02/17 0755 06/02/17 0755 Imaging Last Impressions Cyst Biopsy Asp-Paracentesis US 06/02/17 0000 Signed Impressions: Service Date/Time: Friday, June 02, 2017 10:16 - CONCLUSION: Uncomplicated ultrasound guided paracentesis. Milo Matute MD Chest X-Ray 05/30/17 1825 Signed Impressions: Service Date/Time: Tuesday, May 30, 2017 18:56 - CONCLUSION: 1. Pulmonary edema pattern with bilateral effusions most characteristic of congestive heart failure. Tyler Ngo MD Abdomen/Pelvis CT 05/30/17 0000 Signed Impressions: Service Date/Time: Tuesday, May 30, 2017 20:44 - CONCLUSION: 1. Extensive peritoneal and omental carcinomatosis as above reportedly secondary to an ovarian malignancy. Left adnexal mass and uterine mass similar to prior study from May 16. 2. Slight increase in size of left pleural effusion. 3. Moderate ascites, relatively stable. 4. Mild anasarca. Tyler Ngo MD Objective Remarks GENERAL: ill looking, in no apparent distress. CARDIOVASCULAR: Regular rate and regular rhythm without murmurs, gallops, or rubs. RESPIRATORY: Clear to auscultation. Breath sounds equal bilaterally. No wheezes , rales, or rhonchi. GASTROINTESTINAL: Abdomen soft, non-tender, distended. Normal, active bowel sounds MUSCULOSKELETAL: Extremities without clubbing, cyanosis, or edema. NEURO: Alert & Oriented x4 to person, place, time, situation. Moves all ext x4 Procedures paracentesis EGD Medications and IVs Inpatient Medications Acetaminophen (Tylenol) 650 mg Q6H PRN PO FEVER/PAIN SCALE 1 TO 2; Start 05/30 at 21:45 Acetaminophen/ Hydrocodone Bitart ([place] 5-325 Mg) 1 tab Q4H PRN PO PAIN SCALE 3 TO 5 Last administered on 05/31/17 22:34; Start 05/30/17 at 21:45 Albumin Human (Albumin 25% Inj) 12.5 gm ONCE ONCE IV Last administered on 12:37; Start 06/02/17 at 12:00; Stop 06/02/17 at 12:01; Status DC Bisacodyl (Dulcolax Supp) 10 mg DAILY PRN RECTAL SEVERE CONSITIPATION; Start 05/30/17 at 21:45 Ceftriaxone Sodium 1000 mg/ Sodium Chloride 100 ml @ 200 mls/hr Q24H IV Last administered on 06/01/17 21:47; Start 05/30/17 at 22:00; Stop 06/02/17 at 19 :29; Status DC Chlorhexidine Gluconate (Chlorhexidine 2% Cloth) 3 pack EDITING CLERK PRN TOPICAL SEE LABEL COMMENTS; Start 06/01/17 at 06:30; Stop 06/01/17 at 17:19; Status DC Dextrose (D50w (Vial) Inj) 50 ml UNSCH PRN IV PUSH HYPOGLYCEMIA-SEE COMMENTS; Start 06/01/17 at 17:15 Dextrose/Sodium Chloride 500 ml @ 100 mls/hr BOLUS ONCE IV Last administered on 05/30/17 23:02; Start 05/30/17 at 21:45; Stop 05/31/17 at 02:44; Status DC Furosemide (Lasix Inj) 40 mg ONCE ONCE IV PUSH Last administered on 21:35; Start 05/30/17 at 20:30; Stop 05/30/17 at 20:31; Status DC Glucagon (Glucagon Inj) 1 mg UNSCH PRN OTHER HYPOGLYCEMIA-SEE COMMENTS; Start 06/01/17 at 17:15 Insulin Aspart (NovoLOG SUPPLEMENTAL SCALE) 1 ACHS SLIDING SCALE SQ Last administered on 06/02/17 21:54; Start 06/01/17 at 21:00 Lactated Ringer's 1,000 ml @ 30 mls/hr Q24H PRN IV SEE LABEL COMMENTS; Start 06/01/17 at 06:30; Stop 06/04/17 at 06:29 Lactulose (Lactulose Liq) 30 ml DAILY PRN PO SEVERE CONSITIPATION; Start 05/30 at 21:45 Magnesium Hydroxide (Milk Of Magnesia Liq) 30 ml Q12H PRN PO Mild constipation ; Start 05/30/17 at 21:45 Metoclopramide HCl (Reglan Inj) 10 mg ONCE ONCE IV PUSH Last administered on 05/30/17 19:10; Start 05/30/17 at 18:30; Stop 05/30/17 at 18:31; Status DC Metoprolol Tartrate (Lopressor) 50 mg Q8HR PO Last administered on 06/02/17 21:53; Start 05/30/17 at 22:00 Miscellaneous Information ALL NURSING DEPARTME... UNSCH PRN .XX SEE LABEL COMMENTS; Start 06/01/17 at 13:15; Stop 06/02/17 at 13:14; Status DC Morphine Sulfate (Morphine Inj) 2 mg Q3H PRN IV PAIN SCALE 6 TO 10; Start at 22:00 Ondansetron HCl (Zofran Inj) 4 mg Q6H PRN IVP NAUSEA OR VOMITING Last administered on 06/01/17 06:27; Start 05/30/17 at 21:45 Pantoprazole Sodium 80 mg/ Sodium Chloride 100 ml @ 10 mls/hr Q10H IV Last administered on 06/03/17 01:34; Start 05/30/17 at 18:25 Povidone Iodine (Betadine 5% Antisepsis Kit) 1 applic EDITING CLERK PRN EACH NARE SEE LABEL COMMENTS; Start 06/01/17 at 06:30; Stop 06/01/17 at 17:19; Status DC Senna/Docusate Sodium (Page-Colace) 1 tab BID PO Last administered on 08:12; Start 05/31/17 at 09:00 Sennosides (Senokot) 17.2 mg Q12H PRN PO Moderate constipation; Start at 21:45 Sodium Chloride 500 ml @ 30 mls/hr [id number] PRN IV SEE LABEL COMMENTS; Start at 05:00; Stop 06/01/17 at 17:19; Status DC Sodium Chloride (NS Flush) 2 ml BID IV FLUSH Last administered on 06/02/17 21 :52; Start 05/31/17 at 09:00 Trimethobenzamide HCl (Tigan Inj) 200 mg Q6H PRN IM NAUSEA/VOMITING; Start at 21:45 A/P Problem List: (1) Intractable nausea and vomiting ICD Code: R11.2 - Nausea with vomiting, unspecified (2) Hematemesis ICD Code: K92.0 - Hematemesis (3) UTI (urinary tract infection) ICD Code: N39.0 - Urinary tract infection, site not specified (4) Ovarian ca ICD Code: C56.9 - Malignant neoplasm of unspecified ovary (5) CHF (congestive heart failure) ICD Code: I50.9 - Heart failure, unspecified (6) DM (diabetes mellitus) ICD Code: E11.9 - Type 2 diabetes mellitus without complications Assessment and Plan 67-year-old female with recent diagnosis of ovarian cancer/uterine mass with extensive carcinomatosis Intractable NV/Hematemesis: Likely combination of cancer burden and esophageal ulcer-CT Abd/Pelvis w/ ovarian/uterine mass and extensive carcinomatosis, ascites. -Continue with Protonix drip. Hemoglobin is stable. -Appreciate GI following. - improvement in pain after paracentesis. Ovarian CA: w/ Mets. - Patient follow with Dr. Contreras. 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 - Appreciate BULB GRADER oncology following. Patient is leaning more toward palliative care at this point as she is a very poor candidate for any treatment at this point. -Palliative care evaluation appreciated and hospice consulted. Abnormal urinalysis: Urine culture is negative. - Discontinued antibiotics Pulmonary edema and pleural effusion. -CXR w/ pulmonary edema and bilateral pleural effusion, the patient is asymptomatic. -Likely secondary to worsening fluid overload from carcinomatosis -Continue monitor closely. - 2D echo unremarkable DM: Sliding scale w/ Accu-Cheks. Hold home medications GI prophylaxis: PPI. Stool softener PRN constipation. DVT PPx: Lovenox Discharge Planning likely hospice. Problem Qualifiers (1) Ovarian ca: Qualified Codes: C56.9 - Malignant neoplasm of unspecified ovary Therese Merino MD Jun 03, 2017 08:37
[2017-06-03] MEDS ORDERED: PROT40TA PO (08:38)
[2017-06-03] MEDS: DOCUSATE SODIUM 50 MG/SENNA 8.6 MG TAB PO SCH ×2 (09:55→21:00)
[2017-06-03] MEDS: SODIUM CHLORIDE 0.9% FLUSH 10 ML FLUSH IV FLUSH SCH ×2 (09:56→21:06)
[2017-06-03 12:00] VITALS: BP 118/55; PULSE 94; PULSE 96; RESP 20; TEMP 97.6; O2SAT 95
[2017-06-03] MEDS: SODIUM CHLOR 0.9% 1000 ML INJ 1,000 ML IV SCH (13:04)
[2017-06-03 16:00] VITALS: BP 120/59; PULSE 101; PULSE 105; RESP 20; TEMP 98.2; O2SAT 98
[2017-06-03 20:00] VITALS: BP 117/54; PULSE 100; PULSE 104; RESP 18; TEMP 97.3; O2SAT 98
[2017-06-04] VITALS (11 sets, daily range): BP systolic 98–122; BP diastolic 54–66; PULSE 79–110; RESP 16–20; TEMP 97.2–98.5; O2SAT 95–99
[2017-06-04] MEDS: PANTOPRAZOLE INJ 80 MG in SODIUM CHLORIDE 0.9% INJ 100 ML IV SCH ×3 (04:02→23:55)
[2017-06-04] MEDS: METOPROLOL TARTRATE 50 MG TAB PO SCH ×3 (06:05→22:00)
--- NOTE | 2017-06-04 07:20 | HHI.PR ---
Subjective Remarks ill looking but in no distress. pain is fairly controlled. had mild nausea earlier. awaiting hospice follow-up. Objective Vitals Vital Signs Date Time Temp Pulse Resp B/P (MAP) Pulse Ox O2 Delivery O2 Flow Rate FiO2 06/04/17 04:00 108 06/04/17 04:00 97.9 110 20 112/66 (81) 98 06/04/17 00:00 103 06/04/17 00:00 97.3 94 20 119/57 (77) 95 06/03/17 20:00 97.3 104 18 117/54 (75) 98 06/03/17 20:00 Nasal Cannula 3.00 06/03/17 20:00 100 06/03/17 16:00 98.2 101 20 120/59 (79) 98 06/03/17 16:00 105 06/03/17 12:00 97.6 96 20 118/55 (76) 95 06/03/17 12:00 94 06/03/17 08:00 92 06/03/17 08:00 97.6 94 20 111/53 (72) 92 I/O 06/03/17 06/03/17 06/03/17 06/04/17 06/04/17 06/04/17 07:00 15:00 23:00 07:00 15:00 23:00 Intake Total 75 ml 450 ml 240 ml Output Total 600 ml 225 ml 0 ml Balance -525 ml 225 ml 240 ml Intake Oral 450 ml 240 ml IV Total 75 ml Output Urine Total 600 ml 225 ml 0 ml # Bowel Movements 1 1 0 Result Diagram: 06/02/17 0755 06/02/17 0755 Imaging Last Impressions Cyst Biopsy Asp-Paracentesis US 06/02/17 0000 Signed Impressions: Service Date/Time: Friday, June 02, 2017 10:16 - CONCLUSION: Uncomplicated ultrasound guided paracentesis. Milo Matute MD Chest X-Ray 05/30/17 1825 Signed Impressions: Service Date/Time: Tuesday, May 30, 2017 18:56 - CONCLUSION: 1. Pulmonary edema pattern with bilateral effusions most characteristic of congestive heart failure. Tyler Ngo MD Abdomen/Pelvis CT 05/30/17 0000 Signed Impressions: Service Date/Time: Tuesday, May 30, 2017 20:44 - CONCLUSION: 1. Extensive peritoneal and omental carcinomatosis as above reportedly secondary to an ovarian malignancy. Left adnexal mass and uterine mass similar to prior study from May 16. 2. Slight increase in size of left pleural effusion. 3. Moderate ascites, relatively stable. 4. Mild anasarca. Tyler Ngo MD Objective Remarks GENERAL: ill looking, in no apparent distress. CARDIOVASCULAR: Regular rate and regular rhythm without murmurs, gallops, or rubs. RESPIRATORY: Clear to auscultation. Breath sounds equal bilaterally. No wheezes , rales, or rhonchi. GASTROINTESTINAL: Abdomen soft, non-tender, distended. Normal, active bowel sounds MUSCULOSKELETAL: Extremities without clubbing, cyanosis, or edema. NEURO: Alert & Oriented x4 to person, place, time, situation. Moves all ext x4 Procedures paracentesis EGD Medications and IVs Inpatient Medications Acetaminophen (Tylenol) 650 mg Q6H PRN PO FEVER/PAIN SCALE 1 TO 2; Start 05/30 at 21:45 Acetaminophen/ Hydrocodone Bitart ([place] 5-325 Mg) 1 tab Q4H PRN PO PAIN SCALE 3 TO 5 Last administered on 05/31/17 22:34; Start 05/30/17 at 21:45 Albumin Human (Albumin 25% Inj) 12.5 gm ONCE ONCE IV Last administered on 12:37; Start 06/02/17 at 12:00; Stop 06/02/17 at 12:01; Status DC Bisacodyl (Dulcolax Supp) 10 mg DAILY PRN RECTAL SEVERE CONSITIPATION; Start 05/30/17 at 21:45 Ceftriaxone Sodium 1000 mg/ Sodium Chloride 100 ml @ 200 mls/hr Q24H IV Last administered on 06/01/17 21:47; Start 05/30/17 at 22:00; Stop 06/02/17 at 19 :29; Status DC Chlorhexidine Gluconate (Chlorhexidine 2% Cloth) [address] JUDGE PRN TOPICAL SEE LABEL COMMENTS; Start 06/01/17 at 06:30; Stop 06/01/17 at 17:19; Status DC Dextrose (D50w (Vial) Inj) 50 ml UNSCH PRN IV PUSH HYPOGLYCEMIA-SEE COMMENTS; Start 06/01/17 at 17:15 Dextrose/Sodium Chloride 500 ml @ 100 mls/hr BOLUS ONCE IV Last administered on 05/30/17 23:02; Start 05/30/17 at 21:45; Stop 05/31/17 at 02:44; Status DC Furosemide (Lasix Inj) 40 mg ONCE ONCE IV PUSH Last administered on 21:35; Start 05/30/17 at 20:30; Stop 05/30/17 at 20:31; Status DC Glucagon (Glucagon Inj) 1 mg UNSCH PRN OTHER HYPOGLYCEMIA-SEE COMMENTS; Start 06/01/17 at 17:15 Insulin Aspart (NovoLOG SUPPLEMENTAL SCALE) 1 ACHS SLIDING SCALE SQ Last administered on 06/02/17 21:54; Start 06/01/17 at 21:00 Lactated Ringer's 1,000 ml @ 30 mls/hr Q24H PRN IV SEE LABEL COMMENTS; Start 06/01/17 at 06:30; Stop 06/04/17 at 06:29; Status DC Lactulose (Lactulose Liq) 30 ml DAILY PRN PO SEVERE CONSITIPATION; Start 05/30 at 21:45 Magnesium Hydroxide (Milk Of Magnesia Liq) 30 ml Q12H PRN PO Mild constipation ; Start 05/30/17 at 21:45 Metoclopramide HCl (Reglan Inj) 10 mg ONCE ONCE IV PUSH Last administered on 05/30/17 19:10; Start 05/30/17 at 18:30; Stop 05/30/17 at 18:31; Status DC Metoprolol Tartrate (Lopressor) 50 mg Q8HR PO Last administered on 06/04/17 06:05; Start 05/30/17 at 22:00 Miscellaneous Information ALL NURSING DEPARTME... UNSCH PRN .XX SEE LABEL COMMENTS; Start 06/01/17 at 13:15; Stop 06/02/17 at 13:14; Status DC Morphine Sulfate (Morphine Inj) 2 mg Q3H PRN IV PAIN SCALE 6 TO 10; Start at 22:00 Ondansetron HCl (Zofran Inj) 4 mg Q6H PRN IVP NAUSEA OR VOMITING Last administered on 06/01/17 06:27; Start 05/30/17 at 21:45 Pantoprazole Sodium 80 mg/ Sodium Chloride 100 ml @ 10 mls/hr Q10H IV Last administered on 06/04/17 04:02; Start 05/30/17 at 18:25 Povidone Iodine (Betadine 5% Antisepsis Kit) [address] JUDGE PRN EACH NARE SEE LABEL COMMENTS; Start 06/01/17 at 06:30; Stop 06/01/17 at 17:19; Status DC Senna/Docusate Sodium (Page-Colace) 1 tab BID PO Last administered on 09:55; Start 05/31/17 at 09:00 Sennosides (Senokot) 17.2 mg Q12H PRN PO Moderate constipation; Start at 21:45 Sodium Chloride 500 ml @ 30 mls/hr [id number] PRN IV SEE LABEL COMMENTS; Start at 05:00; Stop 06/01/17 at 17:19; Status DC Sodium Chloride (NS Flush) 2 ml BID IV FLUSH Last administered on 06/03/17 21 :06; Start 05/31/17 at 09:00 Trimethobenzamide HCl (Tigan Inj) 200 mg Q6H PRN IM NAUSEA/VOMITING; Start at 21:45 A/P Problem List: (1) Intractable nausea and vomiting ICD Code: R11.2 - Nausea with vomiting, unspecified (2) Hematemesis ICD Code: K92.0 - Hematemesis (3) UTI (urinary tract infection) ICD Code: N39.0 - Urinary tract infection, site not specified (4) Ovarian ca ICD Code: C56.9 - Malignant neoplasm of unspecified ovary (5) CHF (congestive heart failure) ICD Code: I50.9 - Heart failure, unspecified (6) DM (diabetes mellitus) ICD Code: E11.9 - Type 2 diabetes mellitus without complications Assessment and Plan 67-year-old female with recent diagnosis of ovarian cancer/uterine mass with extensive carcinomatosis Intractable NV/Hematemesis: Likely combination of cancer burden and esophageal ulcer-CT Abd/Pelvis w/ ovarian/uterine mass and extensive carcinomatosis, ascites. -Continue with Protonix drip. Hemoglobin is stable. -Appreciate GI following. - improvement in pain after paracentesis. Ovarian CA: w/ Mets. - Patient follow with Dr. Contreras. 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 - Appreciate TECHNICAL SALES ADVISOR oncology following. Patient is leaning more toward palliative care at this point as she is a very poor candidate for any treatment at this point. -Palliative care evaluation appreciated and hospice consulted. Abnormal urinalysis: Urine culture is negative. - Discontinued antibiotics Pulmonary edema and pleural effusion. -CXR w/ pulmonary edema and bilateral pleural effusion, the patient is asymptomatic. -Likely secondary to worsening fluid overload from carcinomatosis - 2D echo unremarkable DM: Sliding scale w/ Accu-Cheks. Hold home medications GI prophylaxis: PPI. Stool softener PRN constipation. DVT PPx: Lovenox Discharge Planning awaiting hospice f/u. Problem Qualifiers (1) Ovarian ca: Qualified Codes: C56.9 - Malignant neoplasm of unspecified ovary Therese Merino MD Jun 04, 2017 07:20
[2017-06-04] MEDS: DOCUSATE SODIUM 50 MG/SENNA 8.6 MG TAB PO SCH ×2 (09:00→21:00)
[2017-06-04] MEDS: SODIUM CHLORIDE 0.9% FLUSH 10 ML FLUSH IV FLUSH SCH ×2 (10:47→21:00)
[2017-06-04] MEDS: INSULIN ASPART SUPPLEMENTAL SCALE SQ SCH ×4 (10:48→21:00)
--- NOTE | 2017-06-04 11:24 | HHI.GIFU ---
Subjective Remarks Saw pt 06/03/17 1600, delayed entry. Pt resting in bed in NAD. No complaints. Denies nausea, pain. (Brit Sandy) Objective Vitals I&O Vital Signs Date Time Temp Pulse Resp B/P (MAP) Pulse Ox O2 Delivery O2 Flow Rate FiO2 06/04/17 08:00 98.1 86 18 122/57 (78) 99 06/04/17 04:00 108 06/04/17 04:00 97.9 110 20 112/66 (81) 98 06/04/17 00:00 103 06/04/17 00:00 97.3 94 20 119/57 (77) 95 06/03/17 20:00 97.3 104 18 117/54 (75) 98 06/03/17 20:00 Nasal Cannula 3.00 06/03/17 20:00 100 06/03/17 16:00 98.2 101 20 120/59 (79) 98 06/03/17 16:00 105 06/03/17 12:00 97.6 96 20 118/55 (76) 95 06/03/17 12:00 94 I/O 06/03/17 06/03/17 06/03/17 06/04/17 06/04/17 06/04/17 07:00 15:00 23:00 07:00 15:00 23:00 Intake Total 75 ml 450 ml 240 ml Output Total 600 ml 225 ml 0 ml Balance -525 ml 225 ml 240 ml Intake Oral 450 ml 240 ml IV Total 75 ml Output Urine Total 600 ml 225 ml 0 ml # Bowel Movements 1 1 0 Laboratory Date/Time Source Procedure Growth Status 05/30/17 20:30 Urine Random Urine Urine Culture - Final <10,000 CFU/ML GRAM NEGATIVE RATNA Complete Physical Exam HEENT: normocephalic; atraumatic; no jaundice. CHEST: diminished CARDIAC: RRR ABDOMEN: Obese, round Soft, nondistended, nontender; no hepatosplenomegaly; bowel sounds active EXTREMITIES: No clubbing, cyanosis, or edema. SKIN: Normal; no rash; no jaundice. 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 Patient with nausea and vomiting x 2 weeks with specks of blood noted in vomit. EGD done on 06-01 shows large circumfrancial ulcer was found in the mid esophagus and distal esophagus, necrotic base, biopsies taken chronic gastritis in the gastric antrum; multiple biopsies were performed, Retroflexed views revealed Covered with gastric secreations Patient still has complaints of dysphasia and heartburn. PATH PENDING - Ovarian CA, w/ Mets. Followed by Dr. Contreras. 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 Pending possible chemo/surgical intervention. Patient is post paracentesis on 06-0206/03/17 Pt with no complaints. PLAN: - await path - PPI - Monitor HH, transfuse as needed - Anti-emetics - Supportive care - not much more to add from GI standpoint, will sign off, please reconsult if needed Patient seen and examined by Dr. Thomas and myself and this note is written on his behalf. (Brit Sandy) Physician Comments Plan as above, will sign off for now, please notify us if needed. (Mariam Thomas MD) Brit Sandy Jun 04, 2017 11:24 Mariam Thomas MD Jun 04, 2017 13:54
--- NOTE | 2017-06-04 13:11 | HHI.DS ---
Discharge Summary Admission Date May 31, 2017 at 20:24 Discharge Date: Jun 04, 2017 Admitting Diagnosis intractable vomiting; abdominal pain; CHF (1) Intractable nausea and vomiting ICD Code: R11.2 - Nausea with vomiting, unspecified Diagnosis: Principal (2) Hematemesis ICD Code: K92.0 - Hematemesis Diagnosis: Principal (3) UTI (urinary tract infection) ICD Code: N39.0 - Urinary tract infection, site not specified Diagnosis: Secondary (4) Ovarian ca ICD Code: C56.9 - Malignant neoplasm of unspecified ovary Diagnosis: Principal (5) DM (diabetes mellitus) ICD Code: E11.9 - Type 2 diabetes mellitus without complications Diagnosis: Secondary Procedures paracentesis EGD Brief History - From Admission This is a 67-year-old female with a PMH of Metastatic Ovarian CVA, DM and HTN who presented to the ER w/ complaints of abdominal pain in addition to nausea/ vomiting. Recent admit 05/16-05/23/17 for similar complaints, found to have ovarian/uterine mass, s/p CT Guided Biopsy 05/19/[address] Contreras. D/c' d to Rehab and returns now w/ above complaints. Also reports few episodes of hematemesis. On arrival, BP 129/72, HR 116, O2 sat 98% on RA, Afebrile. WBC 13.8. Hgb 12.5, previously 12.9 on 05/21/17. INR 1.1. UA positive for UTI. CXR with pulmonary edema and bilateral effusions. CT Abd/Pelvis w/ extensive peritoneal and omental carcinomatosis secondary to ovarian malignancy Alvina left adnexal mass and uterine mass similar to previous study a slight increase in size of left pleural effusion, moderate ascites. S/p Lasix in ER in addition to multiple doses of antiemetics. Started on Protonix gtt. CBC/BMP: 06/02/17 0755 06/02/17 0755 Significant Findings Laboratory Tests Test 06/02/17 07:53 06/02/17 07:55 White Blood Count 12.1 TH/MM3 (4.0-11.0) Mean Corpuscular Hemoglobin 26.9 PG (27.0-34.0) Mean Corpuscular Hemoglobin Concent 31.5 % (32.0-36.0) Blood Urea Nitrogen 34 MG/DL (7-18) Random Glucose 146 MG/DL (74-106) Total Protein 5.8 GM/DL (6.4-8.2) Albumin 1.7 GM/DL (3.4-5.0) Calcium Level 8.0 MG/DL (8.5-10.1) Alkaline Phosphatase 125 U/L (45-117) Alanine Aminotransferase (ALT/SGPT) 6 U/L (10-53) Chloride Level 108 MEQ/L (98-107) Estimat Glomerular Filtration Rate 61 ML/MIN (>89) Imaging Last Impressions Cyst Biopsy Asp-Paracentesis US 06/02/17 0000 Signed Impressions: Service Date/Time: Friday, June 02, 2017 10:16 - CONCLUSION: Uncomplicated ultrasound guided paracentesis. Milo Matute MD Chest X-Ray 05/30/17 1825 Signed Impressions: Service Date/Time: Tuesday, May 30, 2017 18:56 - CONCLUSION: 1. Pulmonary edema pattern with bilateral effusions most characteristic of congestive heart failure. Tyler Ngo MD Abdomen/Pelvis CT 05/30/17 0000 Signed Impressions: Service Date/Time: Tuesday, May 30, 2017 20:44 - CONCLUSION: 1. Extensive peritoneal and omental carcinomatosis as above reportedly secondary to an ovarian malignancy. Left adnexal mass and uterine mass similar to prior study from May 16. 2. Slight increase in size of left pleural effusion. 3. Moderate ascites, relatively stable. 4. Mild anasarca. Tyler Ngo MD PE at Discharge GENERAL: ill looking, in no apparent distress. CARDIOVASCULAR: Regular rate and regular rhythm without murmurs, gallops, or rubs. RESPIRATORY: Clear to auscultation. Breath sounds equal bilaterally. No wheezes , rales, or rhonchi. GASTROINTESTINAL: Abdomen soft, non-tender, distended. Normal, active bowel sounds MUSCULOSKELETAL: Extremities without clubbing, cyanosis, or edema. NEURO: Alert & Oriented x4 to person, place, time, situation. Moves all ext x4 Hospital Course patient was admitted with intractable nausea, vomiting and hematemesis. 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 she underwent EGD and paracentesis.EGD with large circumfrancial ulcer was found in the mid esophagus and distal esophagus along with chronic gastritis. she was seen by palliative care and hospice was consulted. Pt Condition on Discharge: Deteriorating Discharge Disposition: Hospice/ Home Discharge Time: > 30 minutes Discharge Instructions DIET: Follow Instructions for: Heart Healthy Diet Activities you can perform: Regular-No Restrictions Follow up Referrals: PCP Follow-up New Medications: Pantoprazole (Protonix) 40 Mg Tab 40 MG PO DAILY for Reflux, #30 TAB 0 Refills Continued Medications: Hydrocodone-Acetaminophen ([place]) 5 Mg-325 Mg Tab 1 TAB PO Q4H PRN for PAIN, #30 TAB 0 Refills Metoprolol Tartrate (Lopressor) 50 Mg Tab 50 MG PO Q8HR for Blood Pressure Management, #90 TAB Ondansetron Odt (Zofran Odt) 4 Mg Tab 4 MG SL Q8HR PRN for Nausea/Vomiting, #30 TAB 0 Refills Promethazine Inj (Phenergan Inj) 25 Mg/Ml Inj 25 MG IM Q8HR, VIAL Discontinued Medications: Insulin Detemir Inj (Levemir Inj) 1,000 unit/ 10 ML Vial 5 UNITS SQ BID for Blood Sugar Management, #60 VIAL 0 Refills Do not mix with any other Insulin. Pantoprazole (Protonix) 20 Mg Tab 20 MG PO DAILY for Dyspepsia, #30 TAB Therese Merino MD Jun 04, 2017 13:11
[2017-06-04] MEDS: SODIUM CHLOR 0.9% 1000 ML INJ 1,000 ML IV SCH (23:56)
[2017-06-05 00:22] VITALS: BP 149/63; PULSE 112; RESP 20; TEMP 98; O2SAT 98
[2017-06-05 04:00] VITALS: BP 122/57; PULSE 73; RESP 24; TEMP 97.5; O2SAT 100
[2017-06-05] MEDS: PANTOPRAZOLE INJ 80 MG in SODIUM CHLORIDE 0.9% INJ 100 ML IV SCH ×2 (04:25→13:41)
[2017-06-05 05:43] VITALS: PULSE 113
[2017-06-05] MEDS: METOPROLOL TARTRATE 50 MG TAB PO SCH ×2 (06:00→13:40)
[2017-06-05] MEDS: SODIUM CHLORIDE 0.9% FLUSH 10 ML FLUSH IV FLUSH SCH (07:40)
[2017-06-05] MEDS: INSULIN ASPART SUPPLEMENTAL SCALE SQ SCH ×2 (08:00→12:00)
[2017-06-05 08:08] VITALS: BP 111/51; PULSE 109; RESP 20; TEMP 97.3; O2SAT 99
[2017-06-05] MEDS: DOCUSATE SODIUM 50 MG/SENNA 8.6 MG TAB PO SCH (08:41)
[2017-06-05] MEDS: SODIUM CHLOR 0.9% 1000 ML INJ 1,000 ML IV SCH (08:42)
--- NOTE | 2017-06-05 09:58 | HHI.PR ---
Subjective Remarks in no acute distress. pain is fairly controlled. nausea has improved. Objective Vitals Vital Signs Date Time Temp Pulse Resp B/P (MAP) Pulse Ox O2 Delivery O2 Flow Rate FiO2 06/05/17 08:08 97.3 109 20 111/51 (71) 99 06/05/17 05:43 113 06/05/17 04:00 97.5 73 24 122/57 (78) 100 06/05/17 00:22 98.0 112 20 149/63 (91) 98 06/04/17 23:42 107 06/04/17 21:46 97.3 106 19 114/57 (76) 98 06/04/17 21:00 Nasal Cannula 3.00 06/04/17 19:47 104 06/04/17 16:05 86 06/04/17 16:00 98.5 91 16 98/58 (71) 97 06/04/17 12:03 95 06/04/17 12:00 97.2 93 18 112/54 (73) 98 I/O 06/04/17 06/04/17 06/04/17 06/05/17 06/05/17 06/05/17 07:00 15:00 23:00 07:00 15:00 23:00 Intake Total 240 ml 100 ml 480 ml 360 ml Output Total 0 ml Balance 240 ml 100 ml 480 ml 360 ml Intake Oral 240 ml 480 ml 360 ml IV Total 100 ml Output Urine Total 0 ml # Voids 1 # Bowel Movements 0 1 0 Result Diagram: 06/02/17 0755 06/02/17 0755 Imaging Last Impressions Cyst Biopsy Asp-Paracentesis US 06/02/17 0000 Signed Impressions: Service Date/Time: Friday, June 02, 2017 10:16 - CONCLUSION: Uncomplicated ultrasound guided paracentesis. Milo Matute MD Chest X-Ray 05/30/17 1825 Signed Impressions: Service Date/Time: Tuesday, May 30, 2017 18:56 - CONCLUSION: 1. Pulmonary edema pattern with bilateral effusions most characteristic of congestive heart failure. Tyler Ngo MD Abdomen/Pelvis CT 05/30/17 0000 Signed Impressions: Service Date/Time: Tuesday, May 30, 2017 20:44 - CONCLUSION: 1. Extensive peritoneal and omental carcinomatosis as above reportedly secondary to an ovarian malignancy. Left adnexal mass and uterine mass similar to prior study from May 16. 2. Slight increase in size of left pleural effusion. 3. Moderate ascites, relatively stable. 4. Mild anasarca. Tyler Ngo MD Objective Remarks GENERAL: ill looking, in no apparent distress. CARDIOVASCULAR: Regular rate and regular rhythm without murmurs, gallops, or rubs. RESPIRATORY: Clear to auscultation. Breath sounds equal bilaterally. No wheezes , rales, or rhonchi. GASTROINTESTINAL: Abdomen soft, non-tender, distended. Normal, active bowel sounds MUSCULOSKELETAL: Extremities without clubbing, cyanosis, or edema. NEURO: Alert & Oriented x4 to person, place, time, situation. Moves all ext x4 Procedures paracentesis EGD Medications and IVs Inpatient Medications Acetaminophen (Tylenol) 650 mg Q6H PRN PO FEVER/PAIN SCALE 1 TO 2; Start 05/30 at 21:45 Acetaminophen/ Hydrocodone Bitart ([place] 5-325 Mg) 1 tab Q4H PRN PO PAIN SCALE 3 TO 5 Last administered on 05/31/17 22:34; Start 05/30/17 at 21:45 Albumin Human (Albumin 25% Inj) 12.5 gm ONCE ONCE IV Last administered on 12:37; Start 06/02/17 at 12:00; Stop 06/02/17 at 12:01; Status DC Bisacodyl (Dulcolax Supp) 10 mg DAILY PRN RECTAL SEVERE CONSITIPATION; Start 05/30/17 at 21:45 Ceftriaxone Sodium 1000 mg/ Sodium Chloride 100 ml @ 200 mls/hr Q24H IV Last administered on 06/01/17 21:47; Start 05/30/17 at 22:00; Stop 06/02/17 at 19 :29; Status DC Chlorhexidine Gluconate (Chlorhexidine 2% Cloth) 3 pack SKI LIFT ATTENDANT PRN TOPICAL SEE LABEL COMMENTS; Start 06/01/17 at 06:30; Stop 06/01/17 at 17:19; Status DC Dextrose (D50w (Vial) Inj) 50 ml UNSCH PRN IV PUSH HYPOGLYCEMIA-SEE COMMENTS; Start 06/01/17 at 17:15 Dextrose/Sodium Chloride 500 ml @ 100 mls/hr BOLUS ONCE IV Last administered on 12/16/17at 23:02; Start 05/30/17 at 21:45; Stop 05/31/17 at 02:44; Status DC Furosemide (Lasix Inj) 40 mg ONCE ONCE IV PUSH Last administered on 21:35; Start 05/30/17 at 20:30; Stop 05/30/17 at 20:31; Status DC Glucagon (Glucagon Inj) 1 mg UNSCH PRN OTHER HYPOGLYCEMIA-SEE COMMENTS; Start 06/01/17 at 17:15 Insulin Aspart (NovoLOG SUPPLEMENTAL SCALE) 1 ACHS SLIDING SCALE SQ Last administered on 06/04/17 10:48; Start 06/01/17 at 21:00 Lactated Ringer's 1,000 ml @ 30 mls/hr Q24H PRN IV SEE LABEL COMMENTS; Start 06/01/17 at 06:30; Stop 06/04/17 at 06:29; Status DC Lactulose (Lactulose Liq) 30 ml DAILY PRN PO SEVERE CONSITIPATION; Start 05/30 at 21:45 Magnesium Hydroxide (Milk Of Magnesia Liq) 30 ml Q12H PRN PO Mild constipation ; Start 05/30/17 at 21:45 Metoclopramide HCl (Reglan Inj) 10 mg ONCE ONCE IV PUSH Last administered on 05/30/17 19:10; Start 05/30/17 at 18:30; Stop 05/30/17 at 18:31; Status DC Metoprolol Tartrate (Lopressor) 50 mg Q8HR PO Last administered on 06/04/17 14:33; Start 05/30/17 at 22:00 Miscellaneous Information ALL NURSING DEPARTME... UNSCH PRN .XX SEE LABEL COMMENTS; Start 06/01/17 at 13:15; Stop 06/02/17 at 13:14; Status DC Morphine Sulfate (Morphine Inj) 2 mg Q3H PRN IV PAIN SCALE 6 TO 10; Start at 22:00 Ondansetron HCl (Zofran Inj) 4 mg Q6H PRN IVP NAUSEA OR VOMITING Last administered on 06/01/17 06:27; Start 05/30/17 at 21:45 Pantoprazole Sodium 80 mg/ Sodium Chloride 100 ml @ 10 mls/hr Q10H IV Last administered on 06/04/17 23:55; Start 05/30/17 at 18:25 Povidone Iodine (Betadine 5% Antisepsis Kit) 1 applic SKI LIFT ATTENDANT PRN EACH NARE SEE LABEL COMMENTS; Start 06/01/17 at 06:30; Stop 06/01/17 at 17:19; Status DC Senna/Docusate Sodium (Page-Colace) 1 tab BID PO Last administered on 08:41; Start 05/31/17 at 09:00 Sennosides (Senokot) 17.2 mg Q12H PRN PO Moderate constipation; Start at 21:45 Sodium Chloride 500 ml @ 30 mls/hr [id number] PRN IV SEE LABEL COMMENTS; Start at 05:00; Stop 06/01/17 at 17:19; Status DC Sodium Chloride (NS Flush) 2 ml BID IV FLUSH Last administered on 06/05/17 07 :40; Start 05/31/17 at 09:00 Trimethobenzamide HCl (Tigan Inj) 200 mg Q6H PRN IM NAUSEA/VOMITING; Start at 21:45 A/P Problem List: (1) Intractable nausea and vomiting ICD Code: R11.2 - Nausea with vomiting, unspecified (2) Hematemesis ICD Code: K92.0 - Hematemesis (3) UTI (urinary tract infection) ICD Code: N39.0 - Urinary tract infection, site not specified (4) Ovarian ca ICD Code: C56.9 - Malignant neoplasm of unspecified ovary (5) DM (diabetes mellitus) ICD Code: E11.9 - Type 2 diabetes mellitus without complications Assessment and Plan 67-year-old female with recent diagnosis of ovarian cancer/uterine mass with extensive carcinomatosis Intractable NV/Hematemesis: Likely combination of cancer burden and esophageal ulcer-CT Abd/Pelvis w/ ovarian/uterine mass and extensive carcinomatosis, ascites. -Continue with Protonix drip. Hemoglobin is stable. -Appreciate GI following. - improvement in pain after paracentesis. Ovarian CA: w/ Mets. - Patient follow with Dr. Contreras. 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 - Appreciate [employer] oncology following. Patient is leaning more toward palliative care at this point as she is a very poor candidate for any treatment at this point. -Palliative care evaluation appreciated and hospice consulted. Abnormal urinalysis: Urine culture is negative. - Discontinued antibiotics Pulmonary edema and pleural effusion. -CXR w/ pulmonary edema and bilateral pleural effusion, the patient is asymptomatic. -Likely secondary to worsening fluid overload from carcinomatosis - 2D echo unremarkable DM: Sliding scale w/ Accu-Cheks. Hold home medications GI prophylaxis: PPI. Stool softener PRN constipation. DVT PPx: Lovenox Discharge Planning dc to hospice today. see med list. d/w the patient. previously d/w the case management. time spent 35 min. Problem Qualifiers (1) Ovarian ca: Qualified Codes: C56.9 - Malignant neoplasm of unspecified ovary Therese Merino MD Jun 05, 2017 09:58
[2017-06-05 12:06] VITALS: BP 123/69; PULSE 116; RESP 20; TEMP 97.5; O2SAT 96
[2017-06-05 16:08] VITALS: BP 122/56; PULSE 117; RESP 21; TEMP 97.2; O2SAT 99
== END 2017-06-05 17:51 | disposition hospice, inpatient (51) | DRG 378 ==
LOC: NEPC 17:53 → NEDA 21:32 → INTOOBSV 21:32 → NEPHCDU 23:59 → OBSVTOIN 05-31 20:24 → N04B 06-01 00:14
PROVIDERS: ADMIT Internal Medicine; ATTEND Internal Medicine
PROC: 0DB38ZX Excision of Lower Esophagus, Via Natural or Artificial Opening Endoscopic, Diagnostic (ICD-10-PCS; 2017-06-01)
PROC: 0DB78ZX Excision of Stomach, Pylorus, Via Natural or Artificial Opening Endoscopic, Diagnostic (ICD-10-PCS; 2017-06-01)
PROC: 0DB28ZX Excision of Middle Esophagus, Via Natural or Artificial Opening Endoscopic, Diagnostic (ICD-10-PCS; 2017-06-01)
PROC: 0W9G3ZZ Drainage of Peritoneal Cavity, Percutaneous Approach (ICD-10-PCS; principal; 2017-06-02)
DX: K92.0 Hematemesis (principal); C78.6 Secondary malignant neoplasm of retroperitoneum and peritoneum; R18.8 Other ascites; I11.0 Hypertensive heart disease with heart failure; I50.9 Heart failure, unspecified; K22.10 Ulcer of esophagus without bleeding; C56.9 Malignant neoplasm of unspecified ovary; N39.0 Urinary tract infection, site not specified; E86.0 Dehydration; E11.9 Type 2 diabetes mellitus without complications; K29.50 Unspecified chronic gastritis without bleeding; Z66 Do not resuscitate; G89.3 Neoplasm related pain (acute) (chronic); R00.0 Tachycardia, unspecified; Z86.73 Personal history of transient ischemic attack (TIA), and cerebral infarction without residual deficits; Z79.4 Long term (current) use of insulin
CPT/HCPCS: 49083; 51702; 71010; 74177; 80048; 80053; 80076; 81001; 82948; 83605; 83690; 83880; 85025; 85027; 85610; 85730; 86850; 86900; 86901; 86920; 87086; 88305; 88312; 93005; 93306; 96365; 96375; C1729; C9113; J0696; J1815; J1940; J2405; J2765; J3010; J7030; J7042; P9047; Q9967